=== PATIENT | female | born 1965 | race Caucasian/White ===

== ENCOUNTER 2021-10-08 14:33 | Outpatient (CLI) | payer BC, SELFPAY ==
--- NOTE | 2021-10-08 14:45 | CRLHL7_ITS ---
For Patients: As a result of the Century Cures Act, medical imaging exams and procedure reports are released immediately into your electronic medical record. You may view this report before your referring provider. If you have questions, please contact your health care provider. INDICATION: Other specified soft tissue disorders; Swelling; lymphedema COMPARISON: None. TECHNIQUE: Right upper extremity and neck venous ultrasound performed as well as ultrasound of left internal jugular vein including bermudez scale/2D, color Doppler, and spectral Doppler imaging including spectral waveform analysis. FINDINGS: The internal jugular, innominate, subclavian, axillary, basilic, cephalic, and brachial veins were patent and negative for thrombus. The left internal jugular vein was also patent and negative for thrombus where seen. Remainder negative. IMPRESSION: No evidence for DVT in the right upper extremity and neck venous system. Dictated by Blade Montelongo MD @ 10/08/2021 3:31:33 PM (Electronically Signed)
== END 2021-10-08 14:34 | disposition home or self-care (01) ==
LOC: US 14:34
PROVIDERS: Visit Provider Internal Medicine Medical Oncology
DX: M79.89 Other specified soft tissue disorders (principal); I89.0 Lymphedema, not elsewhere classified
CPT/HCPCS: 93971

== ENCOUNTER 2021-11-29 14:10 | Outpatient (CLI) | payer BC, SELFPAY ==
--- NOTE | 2021-11-29 15:00 | CRLHL7_ITS ---
For Patients: As a result of the Century Cures Act, medical imaging exams and procedure reports are released immediately into your electronic medical record. You may view this report before your referring provider. If you have questions, please contact your health care provider. Indication: Breast cancer Technique: Contrast CT chest abdomen pelvis Comparison: Chest and pelvis 08/01/2021, 05/10/2021 Findings: Normal caliber aorta or size normal. No pleural or pericardial effusion. Mastectomies. 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 Clips in the right axilla adenopathy is seen. In the right lung apex decreased ill-defined nodular densities when compared to 05/10/2021 changed since 08/01 1022. Subpleural reticular opacities in anterior right upper lobe likely related to radiation treatment. No new nodules are seen The appearance of the liver appears fatty. Tiny low-attenuation lesion too small to characterize in the right hepatic lobe on image 118 series 2 not significantly changed from the prior studies no biliary dilatation.. Adrenal glands gallbladder unremarkable. kidneys are unremarkable too small to characterize low-attenuation lesions in the kidneys no abdominal aortic aneurysm normal appendix IUD in the uterus urinary bladder is unremarkable the bowel appears unremarkable. No suspicious bony lesions are seen Impression: 1. ill-defined right apical centrilobular opacities are unchanged from 08/01/2021 but decreased from April 2021 likely infectious or inflammatory. No acute findings in the chest. 2. Stable CT abdomen and pelvis. Tiny too small to characterize low-attenuation lesion right hepatic lobe unchanged from prior exams. Please note that all CT scans at this facility use dose modulation, iterative reconstruction, and/or weight-based dosing when appropriate to reduce radiation dose to as low as reasonably achievable. Dictated by Luzma Mckeon MD @ 11/29/2021 7:14:47 PM (Electronically Signed)
== END 2021-11-29 14:11 | disposition home or self-care (01) ==
LOC: CT 14:11
PROVIDERS: PCP Family Medicine; Visit Provider Internal Medicine Medical Oncology
DX: C50.919 Malignant neoplasm of unspecified site of unspecified female breast (principal)
CPT/HCPCS: 71260; 74177; Q9967

== ENCOUNTER 2022-01-09 14:15 | Outpatient (RCR) | payer BC, SELFPAY ==
--- NOTE | 2021-10-30 18:08 | OT.OPLE ---
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 She woke up the next day and her arm was swollen and sore. Pt states she purchased a compression sleeve online and has been using it since, swelling might be a little better. Pain has improved. Pt was very tearful. Pt states she was reading online and saw terrible pictures, Just one more thing I have to deal with. Re- assured pt that the pictures she saw online were likely pictures of untreated, severe lymphedema and because she did the right thing by talking to her doctor and getting into therapy right away, her's would likely never get that severe as long as she continues to do good self care and follow clinic recommendations. Pt was seen in lymphedema clinic in June of 2020 and was supposed to follow for surveillance, however pt did not return, she was also working with PT on her shoulder ROM and strength and ended that early due to lots of medical appointments. Medical History Medical History Cancer Treatment/Surgery,HTN, Arthritis Medical History Comments Pt had BUE mastectomy with ALND x 17 in the RUE with 3+ for metastatic disease. Pt states that scans have shown spots in her liver, spine and chest, however, they have told her that the spots are too small to determine if it is cancer or not. Pt has undergone chemo and radiation as well. Pt will have consult with plastic surgery next week to have her right retail planner removed. The left one was removed moths ago after developing an infection. Pt has decided not to go through with reconstruction at this point. Pt is nervous about having surgery as she does not want it to make her lymphedema worse. Surgical History Surgical History BUE mastectomy with ALND on 02/13. Family History Family History of Lymphedema No Living Situation Current Living Situation Home With Spouse Or SO Patient Difficulties Patient Difficulties Comments Reaching higher cupboards. Exercise History Does Patient Exercise Regularly Yes Exercise Comments likes to walk. Pain Pain Yes Pain Comments Initially 3-4/10, better now for the most part Loss of Function/Strength/Mobility Loss Of Function/Strength/Mobility Yes Loss Of Function/Strength/Mobility Pt demonstrates limited AROM Comments of the RUE shoulder flexion to 150, abd is 125, IR is 65, ER is 65. Measurements were taken in supine. Rotations were taken with 80 deg of abd. MMT of the RUE shoulder is 3 -/5 throughout, RUE elbow, forearm, wrist and hand are 4/ 5. MMT of the LUE is 5/5 throughout. Pt is RHD. Compression History Does Patient Currently Wear Compression Yes During Daytime Compression During Daytime Comments Pt purchased a compression sleeve off of [employer], I think it was 25-30mmHg. Pt could not remember the brand name. Does Patient Currently Wear Compression No At Night Current Swelling (Location/Pitting/Texture) Pitting Scale: 0 = No pitting 1+ Tissue returns to normal almost immediately 2+ Tissue returns after 15-30 seconds 3+ Tissue returns after 1-1/2 minutes 4+ Tissue returns after 2-3 minutes N/A Tissue no longer pits due to induration Tissue texture: Soft or indurated Clinical Presentation Area RUE, maily in the forearm. Clinical Presentation Pitting Non-pitting. Clinical Presentation Texture Soft texture. Triggering Event & Start Date of Lifting and carrying heavy Swelling/Lymphedema items while cleaning out garrage 1 month ago. Type of Swelling Secondary Staging Staging Stage 1 Positive Stemmer's Sign No Circumferential Measurements Upper Extremity Left Upper Extremity MCP 20.0 Palm 19.8 Wrist 16.5 10cm 19.0 20cm 23.8 30cm 26.5 40cm 28.0 50cm 31.0 Total 184.6 Right Upper Extremity MCP 20.0 Palm 20.5 Wrist 16.5 10cm 19.7 20cm 25.0 30cm 27.2 40cm 28.0 50cm 31.0 Total 187.9 Assessment Assessment Pt reports having significant swelling in her RUE following a day of doing a lot of lifting and carrying while cleaning out the garrage, also reports pain in her right arm initially, this has improved. Swelling has also improved some since starting to wear compression sleeve. Today's measurements were compared to measurements taken on 06/28/2020 . Total measurement on the RUE is 2.8cm larger than 06/28/20, total measurement of the LUE is .6cm larger. Currently, the total measurement of the RUE is 3.3cm larger than the LUE. In June of 2020 the RUE total measurement was only . 6cm larger than the LUE. We are likely seeing the very early stages of lymphedema in the RUE. Pt also demonstrates significant limitations in AROM of the RUE shoulder. Pt will benefit from skilled OT intervention to addresss lymphedema in the RUE as well as limited ROM and strength in the RUE shoulder. Impairments Impairments Loss of Mobility,Limb Heaviness Impairments Comments . Problem List Problem List Limited Knowledge of Lymphedema Treatment/Condition /Precautions,Limited Knowledge of Skin Care & Infection Precautions,Significant Risk For Infection For Lymphedema Related Complications,Does Not Have a HEP,Does Not Have Appropriate Compression Garments For LT Management, Presents With Impaired Mobility/ROM Problem List Comments Uncertain if current compression sleeve is actually medical grade, also, pt does not have a glove or gauntlet. Patient Goals Click To Default Short Term Goals Standard Goals Short Term Goals Goal 1: Patient and or caregiver will understand lymphedema precautions to decrease risk of infection and further lymphedema related complications Goal 2: Patient will consistently perform HEP in order to improve lymphatic flow and venous return as well as to improve AROM of the RUE shoulder. Goal 3: Patient will perform self MLD protocol with minimal assistance to help reduce swelling and improve ROM and mobility Click To Default Detention Goals Standard Goals Detention Goals Goal 1: Patient will experience increased ROM of the RUE shoudler to be WNL in order to improve ability to holly clothing over head and reach into higher cupboards. Goal 2: Pt will obatain medical grade compression garment for hand and arm in order to maximize positive outcomes for LT management of lymphedema and reduce risk for infection. Goal 3: Patient will be consistent with wearing compression garments including the sleeve and a hand piece for best success at LT management of her lymphedema. Goal 4: Patient will achieve a reduction of 2cm from total measurements to enable functional improvements such as fitting into standard sized clothing and , return to a prior level of functional and reduced risk of infection.Goal 5: Patient and/or caregiver will be independent with HEP and lymphedema management to reduce risk for edema relapse and to reduce risk for infection Treatment Plan Treatment Plan Evaluation,Edema Control, Manual Therapy,Therapeutic Exercise,Therapeutic Activities,Self-Care/Home Management,Caregiver Training, Education Other Treatment Plan Recommended OT 2x week, pt only agreeabel to 1x week due to busy schedule Expected Duration 8-10 Weeks Certification Certification I Certify That: Therapy Services Provided, Therapy Plan Established, Therapy Plan Reviewed
--- NOTE | 2022-03-29 15:45 | ONC.NURNOTE ---
Pt called yesterday reviewing how she has been seeing Dr. Manzano for a persistent seroma following right breast implant removal 12/2021. Pt has surgical consult with Dr. Mcmullen Wed 04/03 to evaluate as seroma is persistent, despite draining x 2 and 10 days Keflex, per Dr. Manzano's note. Pt reported yesterday that she notes swollen lymph nodes on her upper right chest/neck. Kinesiology Internship reviewed with Dr. Mcmullen, General Surgeon and Carly Wright CNP. Per Carly's request, Dr. Mcmullen to palpate lymph nodes on exam and order chest CT, which was already likely the plan to further evaluate chest wound. BNN to review CT results with [facility] to determine f/u. If general surgery appt opens up sooner, pt to be moved up. Pt agreeable to this plan.
== END 2022-05-10 16:00 | disposition home or self-care (01) ==
PROVIDERS: PCP Internal Medicine Hematology & Oncology; Visit Provider Internal Medicine Hematology & Oncology
DX: I89.0 Lymphedema, not elsewhere classified (principal); Z51.89 Encounter for other specified aftercare
CPT/HCPCS: 97110; 97140; 97166; 97535; X5282

== ENCOUNTER 2022-04-17 08:59 | Outpatient (CLI) | payer BC, SELFPAY ==
--- NOTE | 2022-04-17 09:15 | CRLHL7_ITS ---
For Patients: As a result of the Cures Act, medical imaging exams and procedure reports are released immediately into your electronic medical record. You may view this report before your referring provider. If you have questions, please contact your health care provider. Indication: Technique: Grayscale ultrasound of the supraclavicular soft tissues performed on the right with left-sided images also obtained for comparison Comparison: None Findings: Normal soft tissues noted. No fluid collection or solid mass. No adenopathy. Impression: Negative targeted ultrasound of the supraclavicular spaces. Dictated by Blade Montelongo MD @ 04/17/2022 10:21:41 AM (Electronically Signed)
== END 2022-04-17 09:00 | disposition home or self-care (01) ==
PROVIDERS: PCP Family Medicine; Visit Provider Surgery
DX: R22.2 Localized swelling, mass and lump, trunk (principal)
CPT/HCPCS: 76536

== ENCOUNTER 2022-04-22 07:51 | Outpatient (CLI) | payer BC, SELFPAY ==
[2022-04-22 10:48] LABS: Basophils Absolute Auto 0.03 K/uL (0.00-0.30); Basophils Percent Auto 0.3 % (0.0-3.0); Eosinophils Absolute Auto 0.07 K/uL (0.00-0.50); Eosinophils Percent Auto 0.7 % (0.0-7.0); Hematocrit 41.3 % (33.0-51.0); Hemoglobin* 14.2 gm/dL (12.0-16.0); Immature Granulocytes Abs Auto 0.01 K/uL (0.00-0.30); Immature Granulocytes Pct Auto 0.1 %; Lymphocytes Percent Auto 8.9 % (20-44); Mean Corpuscular HGB Conc 34 gm/dL (32-36); Mean Corpuscular Hemoglobin 34 pg (26-34); Mean Corpuscular Volume 97 fL (80-100); Monocytes Percent Auto 5.2 % (0.0-11.0); Neutrophils Percent Auto 84.8 % (42.0-72.0); Platelet Count* 364 K/uL (140-440); RDW Coefficient of Variation % 12.4 % (11.5-15.5); Red Blood Count 4.24 m/uL (4.00-5.20); White Blood Count* 10.61 K/uL (4.50-11.00)
[2022-04-22 10:49] LABS: Slide Review Reflex No
[2022-04-22 11:19] LABS: Chloride* 98 mmol/L (96-114); Potassium* 3.4 mmol/L (3.6-5.1); Sodium* 139 mmol/L (135-149)
[2022-04-22 11:22] LABS: Creatinine* 0.6 mg/dL (0.5-1.5); Estimated Glomerular Filt Rate 106 ml/min
[2022-04-22 11:23] LABS: Blood Urea Nitrogen* 16 mg/dL (7-30); Calcium* 9.9 mg/dL (8.4-10.6); Carbon Dioxide* 32 mmol/L (20-32); Glucose* 110 mg/dL (60-115)
[2022-04-22 11:26] LABS: C Reactive Protein* < 0.5 mg/dL (0.5-1.0)
[2022-04-23 16:43] LABS: Prealbumin 36.6 mg/dL (20.0-40.0)
== END 2022-04-22 07:52 | disposition home or self-care (01) ==
LOC: WOUND 07:51
PROVIDERS: PCP Family Medicine; Visit Provider Nurse Practitioner Family
DX: L59.8 Other specified disorders of the skin and subcutaneous tissue related to radiation (principal); T81.31XA Disruption of external operation (surgical) wound, not elsewhere classified, initial encounter; Z85.3 Personal history of malignant neoplasm of breast; Z90.13 Acquired absence of bilateral breasts and nipples
CPT/HCPCS: 36415; 80048; 82728; 84134; 85025; 86140; 87070; 97597; 99213

== ENCOUNTER 2022-04-29 14:49 | Outpatient (CLI) | payer BC, SELFPAY | END 2022-04-29 14:50 | disposition home or self-care (01) | LOC: WOUND 14:49 | PROVIDERS: PCP Family Medicine; Visit Provider Nurse Practitioner Family | DX: L59.8 Other specified disorders of the skin and subcutaneous tissue related to radiation (principal); T81.31XA Disruption of external operation (surgical) wound, not elsewhere classified, initial encounter; Z85.3 Personal history of malignant neoplasm of breast; Z90.13 Acquired absence of bilateral breasts and nipples | CPT/HCPCS: 36415; 84630; 97597 ==

== ENCOUNTER 2022-05-07 10:08 | Outpatient (CLI) | payer BC, SELFPAY ==
--- NOTE | 2022-05-07 10:15 | CRLHL7_ITS ---
For Patients: As a result of the Cures Act, medical imaging exams and procedure reports are released immediately into your electronic medical record. You may view this report before your referring provider. If you have questions, please contact your health care provider. Indication: s/p mastectomy x2 years. s/p event designer removal with non-healing wound. Technique: Grayscale ultrasound of the right chest wall in the area of concern performed. Comparison: CT 08/01/2021, 11/29/2021 Findings: Targeted sonogram to the right chest wall performed. Dealer Support Technician is no longer present. Scar tissue noted. There is edematous change within the subcutaneous fat without drainable abscess. No solid mass. Impression: Postoperative changes of event designer removal and mastectomy. No drainable fluid collection. No evidence of tunneling. Dictated by Blade Montelongo MD @ 05/07/2022 11:11:04 AM (Electronically Signed)
== END 2022-05-07 10:09 | disposition home or self-care (01) ==
LOC: US 10:09
PROVIDERS: PCP Family Medicine; Visit Provider Nurse Practitioner Family
DX: S21.009A Unspecified open wound of unspecified breast, initial encounter (principal)
CPT/HCPCS: 76604

== ENCOUNTER 2022-05-17 15:00 | Outpatient (RCR) | payer BC, SELFPAY | END 2022-06-01 23:59 | disposition home or self-care (01) | LOC: CCIC 15:00 | PROVIDERS: PCP Family Medicine; Visit Provider Nurse Practitioner Family | DX: C50.911 Malignant neoplasm of unspecified site of right female breast (principal); Z17.0 Estrogen receptor positive status [ER+]; I10 Essential (primary) hypertension; Z90.13 Acquired absence of bilateral breasts and nipples | CPT/HCPCS: 99212; 99214; 99215 ==

== ENCOUNTER 2022-05-20 14:56 | Outpatient (CLI) | payer BC, SELFPAY | END 2022-05-20 14:57 | disposition home or self-care (01) | LOC: WOUND 14:56 | PROVIDERS: PCP Family Medicine; Visit Provider Nurse Practitioner Family | DX: L59.8 Other specified disorders of the skin and subcutaneous tissue related to radiation (principal); T81.31XA Disruption of external operation (surgical) wound, not elsewhere classified, initial encounter | CPT/HCPCS: 99212 ==

== ENCOUNTER 2022-05-27 14:55 | Outpatient (CLI) | payer BC, SELFPAY | END 2022-05-27 14:56 | disposition home or self-care (01) | LOC: WOUND 14:55 | PROVIDERS: PCP Family Medicine; Visit Provider Nurse Practitioner Family | DX: L59.8 Other specified disorders of the skin and subcutaneous tissue related to radiation (principal); T81.31XA Disruption of external operation (surgical) wound, not elsewhere classified, initial encounter | CPT/HCPCS: 99212 ==

== ENCOUNTER 2022-06-10 14:41 | Outpatient (CLI) | payer BC, SELFPAY | END 2022-06-10 14:42 | disposition home or self-care (01) | LOC: WOUND 14:41 | PROVIDERS: PCP Family Medicine; Visit Provider Nurse Practitioner Family | DX: L59.8 Other specified disorders of the skin and subcutaneous tissue related to radiation (principal); T81.31XA Disruption of external operation (surgical) wound, not elsewhere classified, initial encounter | CPT/HCPCS: 97597 ==

== ENCOUNTER 2022-06-25 09:27 | Outpatient (CLI) | payer BC, SELFPAY | END 2022-06-25 09:28 | disposition home or self-care (01) | LOC: WOUND 09:27 | PROVIDERS: PCP Family Medicine; Visit Provider Nurse Practitioner Family | DX: L59.8 Other specified disorders of the skin and subcutaneous tissue related to radiation (principal) | CPT/HCPCS: 15271; Q4128 ==

== ENCOUNTER 2022-07-29 15:21 | Outpatient (CLI) | payer BC, SELFPAY | END 2022-07-29 15:22 | disposition home or self-care (01) | LOC: WOUND 15:21 | PROVIDERS: PCP Family Medicine; Visit Provider Nurse Practitioner Family | DX: L59.8 Other specified disorders of the skin and subcutaneous tissue related to radiation (principal); T81.31XA Disruption of external operation (surgical) wound, not elsewhere classified, initial encounter | CPT/HCPCS: 97602 ==

== ENCOUNTER 2022-08-12 15:15 | Outpatient (CLI) | payer BC, SELFPAY | END 2022-08-12 15:16 | disposition home or self-care (01) | LOC: WOUND 15:15 | PROVIDERS: PCP Family Medicine; Visit Provider Family Medicine | DX: L59.8 Other specified disorders of the skin and subcutaneous tissue related to radiation (principal) | CPT/HCPCS: 97597 ==

== ENCOUNTER 2022-09-02 15:19 | Outpatient (CLI) | payer BC, SELFPAY | END 2022-09-02 15:20 | disposition home or self-care (01) | LOC: WOUND 15:19 | PROVIDERS: PCP Family Medicine; Visit Provider Nurse Practitioner Family | DX: T81.31XD Disruption of external operation (surgical) wound, not elsewhere classified, subsequent encounter (principal); L59.8 Other specified disorders of the skin and subcutaneous tissue related to radiation | CPT/HCPCS: 99212; 99213 ==

== ENCOUNTER 2023-05-05 10:05 | Outpatient (CLI) | payer BC, SELFPAY ==
--- NOTE | 2023-05-05 10:15 | US_ITS ---
Patient: FABIAN LION Facility:?[facility] Patient ID:?[id number] Site Patient ID:?[id number]. Site :?1965 Study:?US-Breast Dr. Montelongo to read-05/05/2023 11:14:20 AM Ordering Physician:JOHN Final Report: LEFT AXILLARY ULTRASOUND CLINICAL HISTORY: Right breast cancer status post bilateral mastectomy. New axillary lumps. COMPARISON: CT 11/29/2021, CT-PET 05/24/2021. TECHNIQUE: Real-time ultrasound imaging of left axilla with imaging documentation. Scanning was performed by both the technologist and the radiologist. FINDINGS: Targeted sonogram to the left axilla performed. There is a heterogeneous solid nodule located just beneath the skin measuring 12 x 7 x 10 millimeters. A second heterogeneous nodule is also present measuring 7 x 5 x 7 millimeters. Both of these correspond to palpable lumps. IMPRESSION: Indeterminate new subcutaneous nodular structures within the left axilla measuring 1.2 cm and 0.7 cm. RECOMMENDATIONS: Ultrasound-guided core needle biopsy will be performed subsequently. Results and recommendations were discussed with the patient at the time of the exam. BI-RADS Category 4: Suspicious A lay language report of this examination will be provided to the patient. Dictated by Blade Montelongo MD @ 05/05/2023 11:30:41 AM jacob/Dictated by: Blade Montelongo MD @ 05/05/2023 11:30:00 AM Signed by:?Blade Montelongo MD @05/05/2023 1:10:36 PM (Electronic Signature)
--- NOTE | 2023-05-05 11:15 | US_ITS ---
Patient: FABIAN LION Facility:?[facility] Patient ID:?[id number] Site Patient ID:?[id number]. Site :?1965 Study:?US-Breast Procedure Dr. Montelongo to read-05/05/2023 1:48:45 PM Ordering Physician:JOHN Final Report: ULTRASOUND-GUIDED LEFT AXILLARY BIOPSY X 2 AND MARKER PLACEMENT, 05/05/2023 CLINICAL HISTORY: RIGHT breast cancer status post BILATERAL mastectomy. New palpable lumps LEFT axilla. COMPARISON STUDIES: Ultrasound axilla same day. TECHNIQUE: Real-time ultrasound with image documentation was used for targeting the LEFT axillary lesions. A core needle biopsy system was used to obtain core tissue samples with an 18-gauge needle. Post biopsy mammogram images not performed as the patient is status post mastectomy. CONSENT and TIME OUT: The procedure, risks, and alternatives were explained to the patient and a consent was signed. [place] Protocol was followed including pre-procedure verification that relevant information/documentation was available, reviewed and properly matched to the patient; consent accurate and complete; and equipment and supplies available. Time Out was conducted just prior to starting procedure to verify the four required elements: patient identity, correct side/site marked (if applicable), procedure, relevant images/results properly labeled and displayed (if applicable). PROCEDURE: All biopsies were performed in a similar manner. The patient was positioned supine on the ultrasound table. The left axillary skin was prepped with ChloraPrep. 8 cc 1 percent lidocaine used for local anesthesia. Core samples were obtained. A sterile metal biopsy clip was placed percutaneously to raine the lesion position within the breast. The specimens were placed in 10% formalin and sent to the Pathology Department. Pressure was held on the biopsy site until all bleeding subsided. The skin incision was closed with Steri-Strips. An ice pack was positioned over the biopsy site. The patient tolerated the procedure well. Post-biopsy instructions were reviewed with the patient, and a written copy was given to her. SITE A: LATERALITY: LEFT axilla LESION: Heterogeneous hyperechoic/hypoechoic solid lesion just beneath the skin measuring 1.2 x 0.7 x 1.0 cm. SUSPICION: High. NUMBER OF SAMPLES: 5. BIOPSY CLIP SHAPE: Oval. PROXIMITY OF CLIP TO TARGET: Within the lesion. SITE B: LATERALITY: LEFT axilla. LESION: Hypoechoic and slightly hyperechoic lesion just beneath the skin measuring 7 x 5 x 7 mm. SUSPICION: High. However, due to its location, biopsy was difficult and results may be indeterminate. NUMBER OF SAMPLES: 3. BIOPSY CLIP SHAPE: Coil. PROXIMITY OF CLIP TO TARGET: Within the lesion. DISTANCE BETWEEN: Sites A and B: 3.5 cm. IMPRESSION: Ultrasound-guided breast biopsy of two or more sites. When the pathology report is available, an addendum to this report will be made. ACR not applicable Dictated by Blade Montelongo MD @ 05/06/2023 9:12:57 AM JADYN/vicente DW/Dictated by: Blade Montelongo MD @ 05/06/2023 9:12:00 AM Signed by:?Blade Montelongo MD @05/06/2023 9:52:45 AM
== END 2023-05-05 10:06 | disposition home or self-care (01) ==
LOC: US 10:07
PROVIDERS: PCP Family Medicine; Visit Provider Physician Assistant
DX: R59.0 Localized enlarged lymph nodes (principal); Z85.3 Personal history of malignant neoplasm of breast
CPT/HCPCS: 20206; 38505; 76882; 76942; 88305; 88342; 88361; 88377; A4648; A4649

== ENCOUNTER 2023-05-20 13:57 | Outpatient (CLI) | payer BC, SELFPAY ==
--- NOTE | 2023-05-20 14:30 | CT_ITS ---
Patient: FABIAN LION Facility:?[facility] Patient ID:?[id number] Site Patient ID:?[id number]. Site :?1965 Study:?CT-Head WO AND W ISOUVUE 370-05/20/2023 3:18:43 PM Ordering Physician:SHAN BAUMAN Final Report: Indication: Cancer. Assess for brain metastases. Technique: CT of the brain was performed without and with intravenous contrast. Contrast: 69 cc Isovue 370. Comparison: None relevant available at this institution. Findings: No acute blurring of the bermudez-white differentiation. There is no intracranial hemorrhage. The ventricles are proportionate to the cerebral sulci. The 4th ventricle is midline. Basal cisterns appear patent. No abnormal extra-axial fluid collection identified. There is no intracranial mass, mass effect or midline shift identified. No abnormal intracranial enhancement. No depressed calvarial fracture. Impression: 1. No evidence to suggest intracranial metastases within the confines of CT imaging. Please note MRI is much more sensitive for smaller metastases. 2. No acute intracranial process. Please note that all CT scans at this facility use dose modulation, iterative reconstruction, and/or weight-based dosing when appropriate to reduce radiation dose to as low as reasonably achievable. Dictated by Luther Bahena MD @ 05/20/2023 3:28:59 PM Signed by:?Luther Bahena MD @05/20/2023 3:28:59 PM (Electronic Signature)
--- NOTE | 2023-05-20 14:30 | CT_ITS ---
Patient: FABIAN LION Facility:?[facility] Patient ID:?[id number] Site Patient ID:?[id number]. Site :?1965 Study:?CT-Chest W ISOVUE 370-05/20/2023 3:17:11 PM Ordering Physician:SHAN BAUMAN Final Report: INDICATION: Assessment of tumor burden in brachial plexus area TECHNIQUE: CT chest with 69 mL Isovue 370 IV contrast. COMPARISON: 11/29/[address] FINDINGS: Lungs and pleura: 12 x 5 mm smoothly marginated nodule along the right major fissure image 37 series 4 is new. 6 mm left Brynn fissural nodule on image 49 has grown, previously measuring 3 mm. 5 mm nodule left lower lobe image 71 measuring 3 mm previously. 6 mm nodule along the left hemidiaphragm image 70 is new. Heart and vasculature: Heart size is normal. Thoracic aorta and pulmonary artery are normal in caliber. Lymph nodes/mediastinum: No mediastinal, hilar, or axillary adenopathy. Biopsy clip in a lymph node in the lateral left axilla. Postsurgical change in the right axilla. Chest wall: Bilateral mastectomies. Right breast tissue hand bander has been removed since the prior study. Evaluation of left brachial plexus limited by streak artifact from IV contrast injected in the left arm. Right brachial plexus is grossly unremarkable. Upper abdomen: 9 mm soft tissue mass posterior to the liver on image 109 series 3 is new. Bones: Subtle new sclerotic foci in the humeral heads, several ribs, and possibly the sternum (image 55 series 6). IMPRESSION: 1. No specific abnormalities in either brachial plexus. Brachial plexus MRI with gadolinium is more sensitive however. 2. Several new and enlarged pulmonary nodules described above. 3. Several new sclerotic skeletal lesions. 4. New 9 mm soft tissue mass posterior to the liver. 5. Above findings are suspicious for metastatic disease. Please note that all CT scans at this facility use dose modulation, iterative reconstruction, and/or weight-based dosing when appropriate to reduce radiation dose to as low as reasonably achievable. Dictated by Daniel Mack MD @ 05/21/2023 9:57:01 AM Signed by:?Daniel Mack MD @05/21/2023 9:57:01 AM (Electronic Signature)
== END 2023-05-20 13:58 | disposition home or self-care (01) ==
PROVIDERS: PCP Family Medicine; Visit Provider Internal Medicine Hematology & Oncology
DX: C50.911 Malignant neoplasm of unspecified site of right female breast (principal); R91.8 Other nonspecific abnormal finding of lung field; M89.9 Disorder of bone, unspecified; R16.0 Hepatomegaly, not elsewhere classified; R22.32 Localized swelling, mass and lump, left upper limb; C77.3 Secondary and unspecified malignant neoplasm of axilla and upper limb lymph nodes
CPT/HCPCS: 70470; 71260; Q9967

== ENCOUNTER 2023-06-06 11:30 | Outpatient (RCR) | payer BC, SELFPAY ==
--- NOTE | 2023-05-07 14:45 | ONC.NURNOTE ---
Call to patient to discuss plan of care. Patient informed of Dr. Chavez's recommendation to proceed with left axilla MRI and PET/CT to further evaluate the extent of her disease. We discussed that our next available PET/CT day in [place] is 05/21. Patient does not want to travel to [place] to have it done sooner but is willing to try [place]. Orders and records faxed to [facility]. Patient aware that we will schedule oncology follow up once we confirm dates for PET and MRI. [facility] will also follow up once we know the receptor and Her2 status. Patient verbalizes understanding.
[2023-05-21 09:37] LABS: Basophils Absolute Auto 0.05 K/uL (0.00-0.30); Basophils Percent Auto 0.5 % (0.0-3.0); Eosinophils Percent Auto 1.1 % (0.0-7.0); Hematocrit 41.3 % (33.0-51.0); Immature Granulocytes Abs Auto 0.02 K/uL (0.00-0.30); Immature Granulocytes Pct Auto 0.2 %; Lymphocytes Percent Auto 9.5 % (20-44); Mean Corpuscular HGB Conc 34 gm/dL (32-36); Mean Corpuscular Hemoglobin 33 pg (26-34); Mean Corpuscular Volume 97 fL (80-100); Neutrophils Percent Auto 83.7 % (42.0-72.0); Platelet Count* 486 K/uL (140-440); RDW Coefficient of Variation % 12.6 % (11.5-15.5); Red Blood Count 4.28 m/uL (4.00-5.20); White Blood Count* 9.37 K/uL (4.50-11.00)
[2023-05-21 09:41] LABS: Slide Review Reflex No
[2023-05-21 10:02] LABS: Albumin* 4.9 g/dL (3.3-5.0); Chloride* 97 mmol/L (96-114); Potassium* 3.5 mmol/L (3.6-5.1); Sodium* 136 mmol/L (135-149)
[2023-05-21 10:04] LABS: Bilirubin Total* 0.9 mg/dL (0.1-1.5); Creatinine* 0.8 mg/dL (0.5-1.5); Estimated Glomerular Filt Rate 86 ml/min
[2023-05-21 10:05] LABS: Alanine Aminotransferase* 23 U/L (4-35); Alkaline Phosphatase* 156 U/L (40-150); Anion Gap 10 mEq/L (7-15); Aspartate Amino Transferase* 42 U/L (12-35); Blood Urea Nitrogen* 16 mg/dL (7-30); Calcium* 10.1 mg/dL (8.4-10.6); Carbon Dioxide* 29 mmol/L (20-32); Glucose* 136 mg/dL (60-115); Total Protein* 8.6 g/dL (6.0-8.3)
--- NOTE | 2023-05-21 14:47 | URNOTE ---
Per [employer] [place], Prior authorization is not required for Fulvestrant ([id number]). 05/23/2023-05/22/2024. REf #[id number]
[2023-05-23] MEDS: FULVESTRANT 500MG KIT 500 MG IM (14:06)
[2023-06-06 11:31] VITALS: BP 116/73; PULSE 84; RESP 16; TEMP 36.9; O2SAT 98
[2023-06-06] MEDS: FULVESTRANT 500MG KIT 500 MG IM (11:42)
== END 2023-06-10 23:59 | disposition home or self-care (01) ==
LOC: CCIC 11:30
PROVIDERS: Internal Medicine Hematology & Oncology; PCP Family Medicine; Referring Provider Family Medicine; Visit Provider Physician Assistant
DX: C50.911 Malignant neoplasm of unspecified site of right female breast (principal); Z17.0 Estrogen receptor positive status [ER+]; Z79.818 Long term (current) use of other agents affecting estrogen receptors and estrogen levels; C77.3 Secondary and unspecified malignant neoplasm of axilla and upper limb lymph nodes
CPT/HCPCS: 36415; 80053; 85025; 93010; 96401; 99212; 99214; 99215; G0463; J9395

== ENCOUNTER 2023-06-19 15:12 | Outpatient (CLI) | payer BC, SELFPAY ==
--- NOTE | 2023-05-27 09:29 | W.ED.EKGINT ---
EKG Interpretation EKG Data Attestation: I personally reviewed and interpreted this ECG as follows: Date of EKG Tracin05/23/23 EKG interpretation date: 05/27/23 Prior EKG tracings: not available for review Interpretation: EKG is reviewed from above date, rhythm is sinus, ventricular rate 81, QT interval is 394, QTC baz is 457 milliseconds. Assessment: Normal sinus rhythm, normal EKG with no acute changes.
--- NOTE | 2023-05-29 16:36 | ONC.NURNOTE ---
I left a message for patient to discuss plan of care. 1. PA for Ribociclib was approved and per [facility], her co-pay is $25 per month. I encouraged patient to call to arrange shipment. Baseline labs and EKG completed. Patient not to start until she has been directed to. 2. Appointment to review EBUS biopsy results and [facility] One testing scheduled for 06/02 as a virtual visit.
--- OUTSIDE RECORDS SUMMARY | 2023-06-19 15:15 | XMS_ITS | Clinical Summary ---
Author Name Unknown Organization [facility] Address [place], [place] [address] Care Team Providers Care Warp Worker Name Role Phone Vicki Rawls MD Unavailable [phone] Esvin Manzano MD Primary Care Provider [phone] Allergies Active Allergy Reactions Criticality Noted Date Comments Iron Hives 04/24/2009 While Lisinopril Anaphylaxis,Angioedema High 06/27/2020 Medications Medication Sig Dispensed Refills Start Date End Date Status amLODIPine (NORVASC) 10 mg tablet Take 10 mg by mouth once daily. 03/27/2020 Active acetaminophen (TYLENOL) 325 mg tabletIndications :Malignant neoplasm of lower-inner quadrant of right breast of female, estrogen receptor positive (HC) Take 3 Tablets (975 mg) by mouth every 6 hours if needed. Max acetaminophen dose: 4000mg in 24 hrs. 07/06/2020 Active methocarbamoL (ROBAXIN) 750 mg tabletIndications :Malignant neoplasm of lower-inner quadrant of right breast of female, estrogen receptor positive (HC) Take 1 Tablet (750 mg) by mouth every 6 hours if needed. 50 Tablet 1 07/06/2020 Active Additional Information Patient not taking.Reported on 05/27/2023 anastrozole (ARIMIDEX) 1 mg tablet Take 1 mg by mouth once daily. 01/11/2021 Active chlorthalidone (HYGROTON) 25 mg tablet Take 12.5 mg by mouth once daily. 03/04/2023 Active ibuprofen (ADVIL; MOTRIN) 600 mg tablet Take 600 mg by mouth every 8 hours if needed. Maximum of 3200 mg in 24 hours. Active LORazepam (ATIVAN) 0.5 mg tab Take 0.5 mg by mouth once daily if needed. 10/19/2020 Active metoprolol succinate (TOPROL XL) 50 mg sustained-release tablet Take 50 mg by mouth once daily. 04/01/2023 Active metoprolol succinate (TOPROL XL) 25 mg Sustained-Release tablet Take 25 mg by mouth once daily. 05/19/2020 4 Discontinue d(*Medicati on adjustment) triamcinolone (ARISTOCORT; KENALOG) 0.1 % cream Apply topically to affected area(s) 2 times daily if needed. 05/19/2020 4 Discontinue d(*Patient states no longer taking) traMADoL (ULTRAM) 50 mg tablet Take 50 mg by mouth every 4 hours if needed. 11/16/2020 4 Discontinue d(*Patient states no longer taking) durable medical equipment (DME)Indications: Malignant neoplasm of overlapping sites of right breast in female, estrogen receptor positive (HC) Post-mastectomy bra, prosthesis, and swim form as allowed by insurance 4 Each 06/22/2021 4 Discontinue d(*Patient states no longer taking) Active Problems Problem Noted Date Diagnosed Date Malignant neoplasm of lower- inner quadrant of right breast of female, estrogen receptor positive 06/30/2020 Cancer Staging:Clinical stage from 05/23/2020:Stage IB(cT2, cN0, cM0, G2, ER+, NJ+, HER2-) - Signed by Vicki Rawls MD on 06/30/2020 Pathologic:Stage IIA(pT2, pN1a, cM0, G3, ER+, NJ+, HER2-) - Signed by Monika Grubbs PA on 07/18/2020 Hypertension 06/20/2011 Vitamin D deficiency 03/07/2011 Genital warts 10/13/2009 Anxiety state, unspecified 10/13/2009 Encounters Date Type Department Care Team Description 06/04/2023 1:00 PM CDT Telemedicine [facility] [address] [place] [address] Grazyna Bruno MS, [facility] (Genetic counseling/ ) 06/04/2023 Travel 06/02/2023 Telephone [facility] [address] [place] [address] Lupe Lubin Cancer Genetics 05/28/2023 8:26 AM CDT Anesthesia Event [facility] [address] [place] [address] Cathie Sung MD CrawfordSaima, PROCESS EXCELLENCE MANAGER 05/28/2023 7:50 AM CDT - 05/28/2023 9:05 AM CDT Surgery [facility] [address] [place] [address] Jarod Bonilla MD ENDOBRONCHIAL ULTRASOUND WITH FNA 05/28/2023 6:52 AM CDT - 05/28/2023 10:42 AM CDT Hospital Encounter [facility] [address] [place] [address] Jarod Bonilla MD Discharge Disposition: Home Self Care 05/27/2023 Travel 05/21/2023 Transcribe Orders [facility] [address] [place] [address] Betsey Carlin MD 05/15/2023 8:26 AM CDT - 05/15/2023 11:59 PM CDT Hospital Encounter [address] [address] Violet Benavides PA-C Localized swelling, mass, or lump of upper extremity, left; Malignant neoplasm of right female breast, unspecified estrogen receptor status, unspecified site of breast (HC); 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) 05/15/2023 Travel 05/05/2023 Lab Requisition [facility] [phone] Unknown, Doctor 05/05/2023 Lab Requisition [facility] [phone] Unknown, Doctor from Last 3 Months Immunizations Name Administration Dates Next Due Tdap 11/01/2008 Family History Medical History Relation Name Comments Hypertension Brother Hypertension Father Other Father parkinson's Cancer Maternal Aunt Heart Disease Maternal Grandfather [place] (ag e 60s) Hypertension Mother Cancer-breast Other Mat GGM Hypertension Sister Relation Name Status Comments Brother Father Maternal Aunt Maternal Grandfather Mother Alive Other Mat GGM Sister Social History Tobacco Use Types Packs/Day Years Used Date Smoking Tobacco: Every Day Cigarettes 0.3 37.3 Started: 1986 Smokeless Tobacco: Never Comments:Working on [employer]/ 5 cigs per day Alcohol Use Standard Drinks/Week Comments Yes 6 (1 standard drink = 0.6 oz pur e alcohol) Social Connections Answer Date Recorded Frequency of Communication with Friends and Fami ly Not on file 02/20/2021 Financial Resource Strain Answer Date R ecorded Difficulty of Paying Living Expenses Not on file 02/20/2021 Difficulty of Paying Living Expenses Not on file 02/20/2021 Sex and Gender Information Value Date Recorded Sex Assigned at Not on file Gender Identity Not on file Sexual Orientation Not on file Obstetrics History Para Term AB IAB SAB Ectopic Multiple Livin g Live Births 4 4 4 4 Date Outcome GA Total Labor Labor/2nd/3rd Weight Sex Delivery Anes PTL Kimmy A1 A5 Name Cl in 05/17 Para 3.52 kg (7 lb 12 oz) M Vag June ng SAMUE L Comments:INDUCED - PIT OCIN 07/07 Para 3.03 kg (6 lb 11 oz) M Vag Dece ased TOMMY Comments: OF SIDS - 6 MO 12/12 Para 2.98 kg (6 lb 9 oz) M CS-Unspec June ng DEBORAH Comments: LABOR 27 WKS 08/04 Para 2.81 kg (6 lb 3 oz) F June ng Last Filed Vital Signs Vital Sign Reading Time Taken Comments Blood Pressure 122/73 05/28/2023 10:30 AM CDT Pulse 72 05/28/2023 10:30 AM CDT Temperature 36.9 ??C (98.4 ??F) 05/28/2023 9:55 AM CD T Respiratory Rate 16 05/28/2023 10:3 0 AM CDT Oxygen Saturation 97% 05/28/2023 10: 30 AM CDT Inhaled Oxygen Concentration - - Weight 64.7 kg (142 lb 10.2 oz) 024 10:50 AM CDT Height 171.5 cm (5' 7.5) 06/22/2021 10 :39 AM CDT Body Mass Index 22.01 06/22/2021 10:39 AM CDT Plan of Treatment Health Maintenance Due Date Last Done Comments Depression screening for age 12+ 1978 HIV for age 15-65 1981 Hepatitis C screening for age 18-79 1984 Colonoscopy through age 75 08/18/2011 Lipids for age 45-75 03/04/2016 03/04/2011 Zoster (shingles) series for age 50+ (1 of 2) 2016 Tetanus booster 11/01/2018 11/01/2008 Pap test for age 21-65 01/20/2021 8, 01/20/2018, 03/04/2011 BMI (ht and wt on same day) for age 18+ 06/22/2022 06/22/2021, 01/31/2021, 07/18/2020, Additional history exists COVID-19 vaccine series ( season) 2022 11/10/2020, 06/03/2020, 05/13/2020 Influenza for age 50-64 10/26/2023 Tdap Completed 11/01/2008 Pneumococcal series for age 6-64 Aged Out No longer eligible based on patient's age to complete this topic Medical Devices Implanted Type Area Early Childhood Aide Classroom Device Identifier Shelf Expiration Date Model / Serial / Lot [id number] Alloderm Select Thick Perforated Implanted:Qty: 1 on 07/05/2020 by Eleazar Duran MD at [facility] Explanted:at [facility] (Quantity not on file) Right: Breast [employer] 10/24/2021 [id number] / [id number] / [id number] Alloderm Select Thick Perforated Implanted:Qty: 1 on 07/05/2020 by Eleazar Duran MD at [facility] Explanted:at [facility] (Quantity not on file) Left: Breast [employer] 10/24/2021 [id number] / [id number] / [id number] tissue Assistant Winemaker Breast [place] Cpx 4 Plus Smooth 350cc Implanted:Qty: 1 on 07/05/2020 by Eleazar Duran MD at [facility] Explanted:at [facility] (Quantity not on file) Left: Breast [employer] [place] SCRM 02/13/2024 [id number] / [id number] Description:TISSUE WARE CARRIER BREAST MENTOR CPX 4 PLUS SMOOTH 350CC [id number] Implanted:Qty: 1 on 07/05/2020 by Eleazar Duran MD at [facility] Explanted:at [facility] (Quantity not on file) Right: Breast [employer] [place] SCRM 02/13/2024 [id number] / [id number] Description:BREAST IMPLANT C PX4 PLUS SM TE MH 350CC Procedures Procedure Name Priority Date/Time Associated Diagnosis Comments FOCUS Timed 05/28/2023 9:34 AM CDT PATH NON HOSPITAL CLEANING SPECIALIST CYTOLOGY Today 05/28/2023 9:05 AM CDT ENDOTRACHEAL TUBE Routine 05/28/2023 8:4 3 AM CDT ENDOTRACHEAL TUBE Routine 05/28/2023 8:4 3 AM CDT ENDOTRACHEAL TUBE Routine 05/28/2023 8:4 3 AM CDT ENDOBRONCHIAL ULTRASOUND FINE NEEDLE ASPIRATION Class E Urgent 05/28/2023 8:16 AM CDT see note BRONCHOSCOPY 05/28/2023 7:[address] SKULL BASE TO MID THIGH SUBSEQUENT TREAT JOI 05/15/2023 9:55 AM CDT Localized swelling, mass, or lump of upper extremity, left Malignant neoplasm of right female breast, unspecified estrogen receptor status, unspecified site of breast (HC) 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) LAB TRACKING EVENT Routine 05/05/2023 11 :47 AM CDT LAB TRACKING EVENT Routine 05/05/2023 11 :45 AM CDT PATH BREAST CORE BIOPSY Routine 05/05/2023 11:45 AM CDT CG HER2 BREAST Routine 05/05/2023 11:45 AM CDT CYTOGENETICS MALIGNANT TISSUE Routine 05/05/2023 11:45 AM CDT HOSPITAL CLEANING SPECIALIST THIN PREP PAP SCREEN IMAGED Routine 01/20/2018 1:30 PM HOSPITAL CLEANING SPECIALIST LIPID PANEL Routine 03/04/2011 11:51 AM HOSPITAL CLEANING SPECIALIST Routine general medical examination at a health care facility from Last 3 Months or Most Recently Relevant to Health Maintenance Results * FOCUS (05/28/2023 9:34 AM CDT) Aspirate (Station 7 Subcarinal Lymph Node) 05/28/2023 9:34 AM CDT 06/06/2023 12:13 PM CDT Jarod Bonilla MD LABORATORY Performing Organization Address City/State/[facility] Co de Phone Number [facility] [address] [place] [phone], * PATH NON HOSPITAL CLEANING SPECIALIST CYTOLOGY (05/28/2023 9:05 AM CDT) Case Report Medical Cytology Report ? Case: [id number] ? Authorizing Provider: ??Jarod Bonilla MD ?Collected: ? 05/28/2023 0905 ? Ordering Location: ? [facility] ?Received: ?05/28/2023 0954 ? Hospital ? Pathologist: ? Mukesh Schaefer MD ? Specimens: ?? A) - Station 4R Lower Paratracheal Lymph Node, station 4r ? B) - Station 7 Subcarinal Lymph Node ? 06/13/2023 3:07 PM CDT [facility] Amendment 05/30/2023 - Amendment issued to incorporate ancillary studies. 06/13/2023 - Amendment to report [facility] Solid Tumor Targeted (52 gene) Next Generation Sequencing results. Please see diagnosis and attached scanned report. 06/13/2023 3:07 PM CDT [facility] Final Diagnosis A) LYMPH NODE, THORACIC STATION 4R, RIGHT LOWER PARATRACHEAL, FNA WITH CELL BLOCK: 1. Positive for malignancy, metastatic ductal carcinoma of breast 2. See microscopic description 3. Breast Ancillary Testing: ?a. Hormone Receptors: ?Estrogen receptor: Positive (81%, moderate staining) ?Progesterone receptor: Positive (64%, strong staining) ?b. HER2 by IHC: Negative (1+ by manual morphometry) ?c. NGS 52 gene solid tumor panel): ? - Positive for PIKC3A mutation, FGFR2 amplification, and CCND1 amplification ? - See attached NGS report B) LYMPH NODE, THORACIC STATION 7, SUBCARINAL, FNA WITH CELL BLOCK: 1. Positive for malignancy, metastatic ductal carcinoma of breast 06/13/2023 3:07 PM CDT [facility] Amendment electronically signed by Mukesh Schaefer MD on 06/13/2023 at 3:07 PM Amendment electronically signed by Muna Root MD on 05/30/2023 at 2:58 PM Clinical Information Patient with known invasive ductal carcinoma of bilateral breasts with confirmed metastatic disease in axillary lymph nodes. 06/13/2023 3:07 PM T [facility] Gross Description A) Received identified as Station 4R Lower Paratracheal Lymph Node, is a fine needle aspirate specimen. The specimen consists of: ? -5 Air dried slides ? -1 CytoLyt vial ? -0 RPMI vials ? -1 Formalin vial The following were prepared from the specimen submitted: ? -5 Diff-Quik stained slides ? -1 Papanicolaou stained ThinPrep slide ? -1 H&E stained cell block slide A2 Cell block material was removed from the patient and placed directly in formalin at 0934 on 05/28/23 and fixed in formalin at least 6 hours and no more than 72 hours. B) Received identified as Station 7 Subcarinal Lymph Node, is a fine needle aspirate specimen. The specimen consists of: ? -3 Air dried slides ? -1 CytoLyt vial ? -0 RPMI vials ? -1 Formalin vial The following were prepared from the specimen submitted: ? -3 Diff-Quik stained slides ? -1 Papanicolaou stained ThinPrep slide ? -1 H&E stained cell block slide B2 Cell block material was removed from the patient and placed directly in formalin at 0944 on 05/28/23 and fixed in formalin at least 6 hours and no more than 72 hours. 06/13/2023 3:07 PM T [facility] Adequacy Assessment A&B) Asad assessed adequacy from the air-dried smears at the time of the procedure with an impression of Adequate. 06/13/2023 3:07 PM [facility] Microscopic Description Specimen adequacy: Adequate for interpretation. All slides were reviewed. The microscopic appearance substantiates the diagnosis. IHC testing (block A2) is interpreted with the following results in the malignant cells: GATA3... ? Positive ER... ?Positive TTF1... ?Negative The pattern of immunoreactivity strongly supports the morphologic impression of metastatic breast carcinoma (positive GATA3 and ER) and helps to exclude metastatic disease from an occult lung primary (negative TTF1). 06/13/2023 3:07 PM T [facility] Molecular Diagnostics Summary Preanalytical microdissection of tissue/cytology slides for Next Generation Sequencing was performed according to laboratory protocol as follows: Microscopic examination was performed by a pathologist, Dr. Schaefer, to determine specimen adequacy and identify areas of tumor for isolation. Areas of tumor selected and marked by the pathologist were manually harvested by a laboratory monitor for nucleic acid extraction. 06/13/2023 3:07 PM T [facility] SYNOPTIC REPORTING Breast Biomarker Reporting Template BREAST: BIOMARKER REPORTING TEMPLATE - A Protocol posted: 05/15/2022 ?? Test(s) Performed: ? Estrogen Receptor (ER) Status: ?Positive (greater than 10% of cells demonstrate nuclear positivity) ? Percentage of Cells with Nuclear Positivity: ?81 % ? Average Intensity of Staining: ?Moderate ? Test Type: ?Laboratory-devel oped test ? Primary Antibody: ?SP1 ?? Test(s) Performed: ? Progesterone Receptor (PgR) Status: ?Positive ? Percentage of Cells with Nuclear Positivity: ?64 % ? Average Intensity of Staining: ?Strong ? Test Type: ?Laboratory-devel oped test ? Primary Antibody: ?636 ?? Test(s) Performed: ? HER2 by Immunohistochemist ry: ?Negative (Score 1+) ? Test Type: ?Laboratory-devel oped test ? Primary Antibody: ?4B5 ?? Cold Ischemia and Fixation Times: ?Meet requirements specified in latest version of the ASCO / CAP Guidelines ?? Testing Performed on Block Number(s): ?A2 METHODS ?? Fixative: ?Formalin ?? Image Analysis: ?Performed ? Method: ?Aperio morphometric analysis ? Biomarkers Scored by Image Analysis: ?ER ? Biomarkers Scored by Image Analysis: ?PgR 06/13/2023 3:07 PM CDT [facility]- ENTRAL LABORATORY Additional Information Patients with breast cancers that are HER2 IHC 3+ or IHC 2+/ARIELLA amplified may be eligible for several therapies that disrupt HER2 signaling pathways. Invasive breast cancers that test 'HER2-negative' (IHC 0, 1+ or 2+/ARIELLA not-amplified) are more specifically considered 'HER2-negative for protein overexpression/gen e amplification' since non-overexpressed levels of the HER2 protein may be present in these cases. Patients with breast cancers that are HER2 IHC 1+ or IHC 2+/ARIELLA not amplified may be eligible for a treatment that targets non-amplified/non- overexpressed levels of HER2 expression for cytotoxic drug delivery (IHC 0 results do not result in eligibility currently). Cytology is screened at [facility] Laboratory - [address] [address] and [facility] - [address] [place] [address] and [facility] - [address] [place] [address] Interpreted at [facility] Laboratory - [address] [address] 06/13/2023 3:07 PM CDT [facility] Aspirate (Station 4R Lower Paratracheal Lymph Node) 05/28/2023 9:05 AM CDT 05/28/2023 9:54 AM CDT Specimen obtained by aspiration (specimen) (Station 7 Subcarinal Lymph Node) 05/28/2023 9:34 AM CDT 05/28/2023 9:54 AM CDT Jarod Bonilla MD PATHOLOGY/CYTOLOGY [facility] [address] [place] [address], [place] * HCHG TUBE PR1, HCHG STYLET PR1, HCHG MOUTHPIECE PR1 (05/28/2023 8:43 AM CDT) Narrative Saima Amaro CRNA - 05/28/2023 8:43 AM CDT Saima Amaro CRNA ? 05/28/2023 ??8:43 AM Procedure: ETT Patient location during procedure: OR ETT Properties Mask Ventilation: easy Final Technique: direct laryngoscopy Type: straight Location: oral Cuffed: yes Tube Size: 8.5 mm Stylet: yes Laryngoscope Blade: Robertson Blade Size: 2 Cormack-Lehane Grade View: 1 Insertion Attempts: 1 Placement Verification: auscultation, end tidal CO2 and symmetrical chest wall movement Assessment: pharynx clear, atraumatic and dentition unchanged Secured at: 22 Measured From: lips Tooth guard used and removed: yes Tube secured with: ENDO BITE BLOCK. Difficulty: 0 (not difficult) Cathie Sung MD ANESTHESIA PX N OTE ORDERABLES * BRONCHOSCOPY (05/28/2023 7:26 AM CDT) 05/28/2023 7:26 AM CDT Narrative Transcriptions Jarod Bonilla MD - 05/28/2023 9:59 AM CDT [facility] Patient Name: Nieves Ham Procedure Date: 05/28/2023 Gender: Female Date of : 1965 Admit Type: Ambulatory Instrument Name: BRONCH [id number] [id number] Procedure: Bronchoscopy Proceduralist: Jarod Bonilla MD Referring MD: Jarod Bonilla MD Indications/Pre-Op Diagnosis: Bilateral hilar lymphadenopathy, Mediastinal adenopathy, Breast cancer Medications: General Anesthesia Procedure Description: Risks of bleeding, infection, pneumothorax, need for surgery, remote chance of and alternatives were discussed, and the patient gave informed consent. The endoscope [id number] was introduced through the mouth, via the endotracheal tube (the patient was intubated for the procedure)and advanced to the tracheobronchial tree. The endoscope [id number] was introduced through the mouth, via the endotracheal tube (thepatient was intubated for the procedure) and advanced to the tracheobronchial tree. The procedure was accomplished without difficulty. The patient tolerated the procedure well. Complications: No immediate complications Estimated Blood Loss & Specimen: Estimated blood loss was minimal. Findings: The endotracheal tube is in good position. The visualized portion ofthe trachea is of normal caliber. The xin is sharp. Thetracheobronchial tree was examined to at least the first subsegmental level. Bronchial mucosa and anatomy are normal; there are no endobronchial lesions,and no secretions. EBUS was performed. Stations 4L and 7 were sampled with STEPHEN consistent withmalignancy. Airway was cleared of secretions and blood with therapeuticsuctioning. Impression/Post-Op Diagonsis: - Bilateral hilar lymphadenopathy - Mediastinal adenopathy - Breast cancer - The airway examination was normal. - Staging EBUS was performed. - Therapeutic suctioning was performed. Recommendation: - Await biopsy results. Jarod Bonilla MD 05/28/2023 9:58:52 AM This report has been signed electronically. Note Initiated On: 05/28/2023 7:26 AM Jarod Bonilla MD PROCEDURE ORD * PET CT SKULL BASE TO MID THIGH SUBSEQUENT TREAT (05/15/2023 9:55 AM CDT) Anatomical Region Laterality Modality Positron Emissio n Tomography (PET) 05/15/2023 9:11 PM CDT Impressions 05/15/2023 9:11 PM CDT 1. Widespread sclerotic skeletal metastases are new compared to a prior PET-CT. 2. Increased size of a left adrenal nodule with moderately intense uptake is highly suspicious for metastatic disease. 3. Right lung perifissural nodule and left suprahilar nodule/lymph node with uptake are suspicious for metastatic disease. 4. Avid upper right cervical, left supraclavicular, multi station mediastinal and left axillary lymph nodes with uptake are suspicious metastatic disease. 5. Scattered small subcutaneous nodules, focal muscular implants and several peritoneal/retroperitoneal nodules with uptake are suspicious for metastatic disease. 6. Masslike thickening in the distal gastric antrum and asymmetric wall thickening in the descending duodenum is considered nonspecific though very worrisome for metastatic disease. Consider direct visualization. 7. Prior bilateral mastectomies with interval removal of a right chest tissue set staff fitter. Skin thickening with uptake and bandlike soft tissue/muscular activity across the right chest mastectomy site is nonspecific, possibly reactive/inflammatory in the setting of radiation. Infection not excluded. Correlate on exam. 8. Curvilinear uptake posterior inferior midline cerebellum with no definite noncontrast CT abnormality. Consider diagnostic head CT in follow-up. 9. Other nonacute findings as detailed in the body of the Dictated by Osman Krause MD @ 05/15/2023 9:11:20 PM (Electronically Signed) Narrative 05/15/2023 9:11 PM CDT For Patients: ??As a result of the Century Cures Act, medical imaging exams and procedure reports are released immediately into your electronic medical record. ??You may view this report before your referring provider. ??If you have questions, please contact your health care provider. EXAM: PET-CT SKULL BASE TO THIGH CLINICAL INFORMATION: 57-yo Female with history of metastatic breast cancer (2020). Prior bilateral mastectomy with right axillary lymph node dissection, radiation treatment and chemotherapy. Patient is referred for further characterization. TECHNIQUE: Radiopharmaceutical: 13.93 mCi of 18F-FDG Intravenous injection site: LAC Uptake time: 56 minutes Blood glucose level at the time of injection: 83 mg/dL Field of view: Skull base to mid-thighs CT protocol: The low-dose, free-breathing, noncontrast CT performed as part of this study is designed for the purposes of attenuation correction and lesion localization, and it is neither sufficient, nor it should be substituted for diagnostic purposes. COMPARISON: CT chest abdomen pelvis 11/29/2021 and 08/01/2021. PET-CT 05/24/2021 FINDINGS: Physiologic background liver standardized uptake value (SUV mean and SUV max) reported for comparison between PET studies: 2.4 and 2.7 . Visualized head and neck: Curvilinear uptake posterior inferior midline cerebellum with no definite noncontrast CT abnormality (series 301, image 17). No mass effect. Consider dedicated CT head in follow-up. Head and neck lymph nodes: Avid right level 2 lymph node and a small left supraclavicular lymph node are suspicious. For example: Right level 2 lymph node, SUV max 9.5. Left supraclavicular lymph node, SUV max 4.0. Lungs: New bilateral nodules with uptake are suspicious. Noncalcified right midlung perifissural nodule, 1.1 cm, SUV max 6.9 (fused image 104). Left suprahilar nodule/lymph node, 1.2 cm, SUV max 8.7 (fused image 99). Small nodular densities in the lateral and posterior lung base (images 140 and 137) with no abnormal uptake are nonspecific. Postradiation changes anterior aspect right upper lobe. No consolidation. Thoracic lymph nodes: Avid nonenlarged mediastinal, hilar and left axillary lymph nodes are suspicious. For example: Lower right paratracheal lymph node, SUV max 8.1. Subcarinal lymph node, SUV max 7.2. Right anterior perihilar lymph node, SUV max 8.3. Posterolateral left axillary lymph node with biopsy clip, SUV max 5.2. Misregistered activity. Other chest findings: ??Scattered coronary vascular calcifications. Prior bilateral mastectomies with interval removal of a right chest tissue set staff fitter. Skin thickening and bandlike soft tissue/muscular uptake across the right chest is nonspecific, ??SUV max 2.5 (fused image 124). Potentially,reactive/inflammatory in the setting of prior radiation or infectious process. Attention on exam. Hepatobiliary: No measurable tracer avid liver lesion. Avid nodule or capsular implant adjacent to the anterior inferior left hepatic lobe margin, 0.6 cm, SUV max 3.9 (fused image 164). Spleen: No abnormal uptake. No splenomegaly. Pancreas: No abnormal uptake. Adrenal glands: No abnormal right adrenal uptake. Left adrenal nodule with uptake is suspicious for adrenal metastasis, 1.4 cm, SUV max 9.0. Kidneys and bladder: No obstruction. Limited bladder distention with generalized wall thickening. Bowel and peritoneum: Masslike thickening in the distal gastric antrum with uptake is suspicious for metastatic disease, 4.0 cm, SUV max 6.1 (fused image 163). No gastric outlet obstruction. Short-segment wall thickening proximal descending duodenum with uptake, SUV max 3.9 (fused image 169). No other suspicious small bowel or colon uptake. Unremarkable appendix. Colonic diverticulosis without inflammatory change. -peritoneal and retroperitoneal nodules with uptake are suspicious for metastatic disease. For example: Right upper quadrant peritoneal nodule borders the gastric antrum, 0.9 cm, SUV max 5.7 (fused image 174). Peritoneal nodule posterior to the right lobe of the liver, 0.8 cm, SUV max 3.8 (fused image 161). Right posterior pararenal nodule bordering the right kidney, 0.9 cm, SUV max 5.0 (fused image 189). Pelvic organs: No abnormal uptake. IUD in place. Abdominopelvic lymph nodes: Mild uptake within nonenlarged abdominal ,retroperitoneal, pelvic and inguinal lymph nodes is nonspecific, possibly reactive/inflammatory. Musculoskeletal, soft tissues, skin: New widely scattered tracer avid skeletal lesions involve the spine, thorax/ribs, pelvis, sacrum and extremities consistent with diffuse osseous metastatic disease. For example: Left humeral head lesion, SUV max 6.3. ??Distal right humeral shaft lesion, SUV max 5.1. Sclerotic left anterior 5th rib lesion, SUV max 3.3. Left T9 transverse process lesion, SUV max 4.7. Sclerotic L5 vertebral body and right pedicle lesion, SUV max 7.1. Upper sacral body and bilateral ala sclerotic lesion, SUV max 7.3. Left iliac sclerotic lesion, SUV max 7.5. Right hip/femoral neck sclerotic lesion, SUV max 6.7. Proximal right femoral shaft medullary lesion, SUV max 10.8. -scattered small subcutaneous nodules and several foci of muscular uptake are considered indeterminate though suspicious for metastases. For example: Subcutaneous nodule left lower lateral abdomen, 0.7 cm SUV max 3.4. Focal uptake left posterior gluteus caleb muscle, not measurable, SUV max 5.6 (fused image 265). Right posterolateral flank subcutaneous nodule, 0.5 cm, SUV max 1.9 (fused image 199). Other: Scattered aortoiliac atherosclerotic vascular calcifications. Procedure Note Osman Krause, DO - 05/15/2023 For Patients: As a result of the Century Cures Act, medical imagingexams and procedure reports are released immediately into your electronicmedical record. You may view this report before your referring provider.If you have questions, please contact your health care provider. EXAM: PET-CT SKULL BASE TO THIGH CLINICAL INFORMATION: 57-yo Female with history of metastatic breast cancer (2020). Priorbilateral mastectomy with right axillary lymph node dissection, radiationtreatment and chemotherapy. Patient is referred for furthercharacterization. TECHNIQUE: Radiopharmaceutical: 13.93 mCi of 18F-FDG Intravenous injection site: LAC Uptake time: 56 minutes Blood glucose level at the time of injection: 83 mg/dL Field of view: Skull base to mid-thighs CT protocol: The low-dose, free-breathing, noncontrast CT performed aspart of this study is designed for the purposes of attenuation correctionand lesion localization, and it is neither sufficient, nor it should besubstituted for diagnostic purposes. COMPARISON: CT chest abdomen pelvis 11/29/2021 and 08/01/2021. PET-CT 05/24/2021 FINDINGS: Physiologic background liver standardized uptake value (SUV mean and SUVmax) reported for comparison between PET studies: 2.4 and 2.7 . Visualized head and neck: Curvilinear uptake posterior inferior midlinecerebellum with no definite noncontrast CT abnormality (series 301, image17). No mass effect. Consider dedicated CT head in follow-up. Head and neck lymph nodes: Avid right level 2 lymph node and a small leftsupraclavicular lymph node are suspicious. For example: Right level 2lymph node, SUV max 9.5. Left supraclavicular lymph node, SUV max 4.0. Lungs: New bilateral nodules with uptake are suspicious. Noncalcifiedright midlung perifissural nodule, 1.1 cm, SUV max 6.9 (fused image 104).Left suprahilar nodule/lymph node, 1.2 cm, SUV max 8.7 (fused image 99).Small nodular densities in the lateral and posterior lung base (images 140and 137) with no abnormal uptake are nonspecific. Postradiation changesanterior aspect right upper lobe. No consolidation. Thoracic lymph nodes: Avid nonenlarged mediastinal, hilar and leftaxillary lymph nodes are suspicious. For example: Lower right paratracheallymph node, SUV max 8.1. Subcarinal lymph node, SUV max 7.2. Rightanterior perihilar lymph node, SUV max 8.3. Posterolateral left axillarylymph node with biopsy clip, SUV max 5.2. Misregistered activity. Other chest findings: Scattered coronary vascular calcifications. Priorbilateral mastectomies with interval removal of a right chest tissueexpander. Skin thickening and bandlike soft tissue/muscular uptake acrossthe right chest is nonspecific, SUV max 2.5 (fused image 124).Potentially,reactive/inflammatory in the setting of prior radiation orinfectious process. Attention on exam. Hepatobiliary: No measurable tracer avid liver lesion. Avid nodule orcapsular implant adjacent to the anterior inferior left hepatic lobemargin, 0.6 cm, SUV max 3.9 (fused image 164). Spleen: No abnormal uptake. No splenomegaly. Pancreas: No abnormal uptake. Adrenal glands: No abnormal right adrenal uptake. Left adrenal nodule withuptake is suspicious for adrenal metastasis, 1.4 cm, SUV max 9.0. Kidneys and bladder: No obstruction. Limited bladder distention withgeneralized wall thickening. Bowel and peritoneum: Masslike thickening in the distal gastric antrumwith uptake is suspicious for metastatic disease, 4.0 cm, SUV max 6.1(fused image 163). No gastric outlet obstruction. Short-segment wallthickening proximal descending duodenum with uptake, SUV max 3.9 (fusedimage 169). No other suspicious small bowel or colon uptake. Unremarkableappendix. Colonic diverticulosis without inflammatory change. -peritoneal and retroperitoneal nodules with uptake are suspicious formetastatic disease. For example: Right upper quadrant peritoneal noduleborders the gastric antrum, 0.9 cm, SUV max 5.7 (fused image 174).Peritoneal nodule posterior to the right lobe of the liver, 0.8 cm, SUVmax 3.8 (fused image 161). Right posterior pararenal nodule bordering theright kidney, 0.9 cm, SUV max 5.0 (fused image 189). Pelvic organs: No abnormal uptake. IUD in place. Abdominopelvic lymph nodes: Mild uptake within nonenlarged abdominal,retroperitoneal, pelvic and inguinal lymph nodes is nonspecific, possiblyreactive/inflammatory. Musculoskeletal, soft tissues, skin: New widely scattered tracer avidskeletal lesions involve the spine, thorax/ribs, pelvis, sacrum andextremities consistent with diffuse osseous metastatic disease. Forexample: Left humeral head lesion, SUV max 6.3. Distal right humeralshaft lesion, SUV max 5.1. Sclerotic left anterior 5th rib lesion, SUV max3.3. Left T9 transverse process lesion, SUV max 4.7. Sclerotic A0qobztyyvs body and right pedicle lesion, SUV max 7.1. Upper sacral bodyand bilateral ala sclerotic lesion, SUV max 7.3. Left iliac scleroticlesion, SUV max 7.5. Right hip/femoral neck sclerotic lesion, SUV max 6.7.Proximal right femoral shaft medullary lesion, SUV max 10.8. -scattered small subcutaneous nodules and several foci of muscular uptakeare considered indeterminate though suspicious for metastases. Forexample: Subcutaneous nodule left lower lateral abdomen, 0.7 cm SUV max3.4. Focal uptake left posterior gluteus caleb muscle, not measurable,SUV max 5.6 (fused image 265). Right posterolateral flank subcutaneousnodule, 0.5 cm, SUV max 1.9 (fused image 199). Other: Scattered aortoiliac atherosclerotic vascular calcifications. IMPRESSION: 1. Widespread sclerotic skeletal metastases are new compared to a priorPET-CT. 2. Increased size of a left adrenal nodule with moderately intense uptakeis highly suspicious for metastatic disease. 3. Right lung perifissural nodule and left suprahilar nodule/lymph nodewith uptake are suspicious for metastatic disease. 4. Avid upper right cervical, left supraclavicular, multi stationmediastinal and left axillary lymph nodes with uptake are suspiciousmetastatic disease. 5. Scattered small subcutaneous nodules, focal muscular implants andseveral peritoneal/retroperitoneal nodules with uptake are suspicious formetastatic disease. 6. Masslike thickening in the distal gastric antrum and asymmetric wallthickening in the descending duodenum is considered nonspecific thoughvery worrisome for metastatic disease. Consider direct visualization. 7. Prior bilateral mastectomies with interval removal of a right chesttissue set staff fitter. Skin thickening with uptake and bandlike softtissue/muscular activity across the right chest mastectomy site isnonspecific, possibly reactive/inflammatory in the setting of radiation.Infection not excluded. Correlate on exam. 8. Curvilinear uptake posterior inferior midline cerebellum with nodefinite noncontrast CT abnormality. Consider diagnostic head CT infollow-up. 9. Other nonacute findings as detailed in the body of the Dictated by Osman Krause MD @ 05/15/2023 9:11:20 PM (Electronically Signed) Violet Benavides PA-C PET * LAB TRACKING EVENT (05/05/2023 11:47 AM CDT) Only the most recent of2 resultswithin the time period is included. Other (Other) Client Collect / Unknown 05/05/2023 11:47 AM CDT 05/05/2023 9:49 PM CDT Doctor Unknown LAB BILL ONLY [facility] [address] [place] [address], * PATH BREAST CORE BIOPSY (05/05/2023 11:45 AM CDT) Case Report Pathology Report ?Case: [id number] ? Authorizing Provider: ??Unknown, Doctor ?Collected: ? 05/05/2023 1145 ? Ordering Location: ? [facility] ?Received: ?05/06/2023 0650 ? Pathologist: ? Kevin Bush MD ? Specimens: ?? A) - Left Breast ? B) - Left Breast Core Ultrasound Biopsy ? 05/12/2023 3:38 PM CDT [facility] Amendment 05/08/2023 - Amendment issued to incorporate ancillary studies. 05/09/2023 - Amendment issued to incorporate ancillary studies on part B. 05/12/2023 - Amendment issued to incorporate ancillary HER2 FISH studies. 05/12/2023 3:38 PM CDT [facility] Final Diagnosis A) AXILLA, LEFT, MASS A, ULTRASOUND CORE BIOPSY: 1. 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 a. [place] grade: II of III; Shanice score: 7 of 9 ?? b. Associated DCIS: Absent 2. No definite lymph node tissue present 3. No breast glandular parenchyma is present 4. Breast Ancillary Testing: ?a. Hormone Receptors: ?Estrogen receptor: Positive (98%, strong staining) ?Progesterone receptor: Positive (97%, strong staining) ?b. HER2 by IHC: Equivocal (2+ by manual morphometry) ? HER2 by FISH: Negative ?HER2/CEP17 ratio: 1.02 ?HER2 signals/cell: 2.36 ?CEP17 signals/cell: 2.32 B) AXILLA, LEFT, MASS B, ULTRASOUND CORE BIOPSY: 1. 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 a. [place] grade: II of III; Shanice score: 6 of 9 ?? b. Associated DCIS: Absent 2. No definite lymph node tissue present 3. No breast glandular parenchyma is present 4. Breast Ancillary Testing: ?a. Hormone Receptors: ?Estrogen receptor: Positive (99%, strong staining) ?Progesterone receptor: Positive (37%, moderate staining) ?b. HER2 by IHC: Negative (1+ by manual morphometry) ?c. Ki-67: Deferred (can be performed upon clinical request) 05/12/2023 3:38 PM CDT [facility] Amendment electronically signed by Etta Cardoza MD on 05/12/2023 at 3:38 PM Amendment electronically signed by Muna Root MD on 05/09/2023 at 10:42 AM Amendment electronically signed by Kevin Bush MD on 05/08/2023 at 11:06 AM Comment The A and B slides both confirm invasive ductal carcinoma. The patient is status post prophylactic left mastectomy, having undergone bilateral mastectomy for invasive and node positive right breast carcinoma in 2020 (see [phone]). ??The current invasive carcinoma is morphologically similar to the patient's known breast carcinoma (prior slides reviewed for histologic correlation). No background non-neoplastic breast tissue is seen, and no lymph node tissue is present in either A or B. This is an image-guided breast biopsy. The pathologic findings should be correlated with radiologic and clinical findings prior to treatment decisions. Case seen in consultation with Dr. Cielo olmstead. 05/12/2023 3:38 PM CDT [facility] Clinical Information Patient with history of invasive ductal carcinoma of right breast ([id number]) with multiple positive right axillary lymph nodes. Treated with bilateral mastectomy. A) LEFT AXILLARY MASS, 12 mm B) LEFT AXILLARY MASS, 7 mm 3.5 cm apart 05/12/2023 3:38 PM CDT [facility] Gross Description A) Label: Patient's name and Left axilla A Description: Fibrofatty core biopsies Size: 0.9 x 0.7 x 0.1 cm (aggregate) Ink color: Green The specimen is submitted in toto in 1 cassette(s). Cold ischemic time: Less than 60 minutes, meets current ASCO/CAP guidelines. ?? The specimen was fixed in formalin for a minimum of 6 hours and not longer than 72 hours. B) Label: Patient's name and Left axilla B Description: Fibrofatty core biopsies Size: 0.5 x 0.3 x 0.1 cm (aggregate) Ink color: Black The specimen is submitted in toto in 1 cassette(s). Cold ischemic time: Less than 60 minutes, meets current ASCO/CAP guidelines. ?? The specimen was fixed in formalin for a minimum of 6 hours and not longer than 72 hours. SREEDHAR 05/06/2023 ?? 05/12/2023 3:38 PM CDT [facility] Microscopic Description The final diagnosis is based on microscopic examination of appropriate sections of all specimens. A) Cores with green ink. B) Cores with black ink. 05/12/2023 3:38 PM CDT [facility] Cytogenetics Summary Cytogenetic testing has been ordered and will be reported separately. 05/12/2023 3:38 PM CDT [facility] SYNOPTIC REPORTING Breast Biomarker Reporting Template BREAST: BIOMARKER REPORTING TEMPLATE - A Protocol posted: 05/15/2022 ?? Test(s) Performed: ? Estrogen Receptor (ER) Status: ?Positive (greater than 10% of cells demonstrate nuclear positivity) ? Percentage of Cells with Nuclear Positivity: ?98 % ? Average Intensity of Staining: ?Strong ? Test Type: ?Laboratory-deve loped test ? Primary Antibody: ?SP1 ?? Test(s) Performed: ? Progesterone Receptor (PgR) Status: ?Positive ? Percentage of Cells with Nuclear Positivity: ?97 % ? Average Intensity of Staining: ?Strong ? Test Type: ?Laboratory-deve loped test ? Primary Antibody: ?636 ?? Test(s) Performed: ? HER2 by Immunohistochemis try: ?Equivocal (Score 2+) ? Percentage of Cells with Uniform Intense Complete Membrane Staining: ?0 % ? Test Type: ?Laboratory-deve loped test ? Primary Antibody: ?4B5 ?? Test(s) Performed: ? HER2 by in situ Hybridization: ?Negative (not amplified) ? Number of Observers: ?2 ? Number of Invasive Tumor Cells Counted: ?25 cells ? Method: ?Dual probe assay ? Average Number of HER2 Signals per Cell: ?2.36 ? Average Number of CEP17 Signals per Cell: ?2.32 ? HER2 / CEP17 Ratio: ?1.02 ? Aneusomy: ?Not identified ? Heterogeneous Signals: ?Not identified ? Test Type: ?Food and Drug Administration (FDA) cleared (test / vendor): Vysis PathVysion ?? Cold Ischemia and Fixation Times: ?Meet requirements specified in latest version of the ASCO / CAP Guidelines ?? Testing Performed on Block Number(s): ?A1 METHODS ?? Fixative: ?Formalin ?? Image Analysis: ?Performed ? Method: ?Aperio morphometric analysis ? Biomarkers Scored by Image Analysis: ?ER ? Biomarkers Scored by Image Analysis: ?PgR ?? Comment(s): ?The FDA approved Vysis PathVysion DNA Probe Kit was developed and its performance characteristics determined by [employer]. ??This test incorporates minor modifications to protocol and validated by the [facility] and [facility] to yield equivocal or superior performance. This FISH test uses a multiplex probe stain procedure. Breast Biomarker Reporting Template BREAST: BIOMARKER REPORTING TEMPLATE - B Protocol posted: 05/15/2022 ?? Test(s) Performed: ? Estrogen Receptor (ER) Status: ?Positive (greater than 10% of cells demonstrate nuclear positivity) ? Percentage of Cells with Nuclear Positivity: ?99 % ? Average Intensity of Staining: ?Strong ? Test Type: ?Laboratory-deve loped test ? Primary Antibody: ?SP1 ?? Test(s) Performed: ? Progesterone Receptor (PgR) Status: ?Positive ? Percentage of Cells with Nuclear Positivity: ?37 % ? Average Intensity of Staining: ?Moderate ? Test Type: ?Laboratory-deve loped test ? Primary Antibody: ?636 ?? Test(s) Performed: ? HER2 by Immunohistochemis try: ?Negative (Score 1+) ? Test Type: ?Laboratory-deve loped test ? Primary Antibody: ?4B5 ?? Cold Ischemia and Fixation Times: ?Meet requirements specified in latest version of the ASCO / CAP Guidelines ?? Testing Performed on Block Number(s): ?B1 METHODS ?? Fixative: ?Formalin ?? Image Analysis: ?Performed ? Method: ?Aperio morphometric analysis ? Biomarkers Scored by Image Analysis: ?ER ? Biomarkers Scored by Image Analysis: ?PgR 05/12/2023 3:38 PM CDT [facility] Additional Information Patients with breast cancers that are HER2 IHC 3+ or IHC 2+/ARIELLA amplified may be eligible for several therapies that disrupt HER2 signaling pathways. Invasive breast cancers that test 'HER2-negative' (IHC 0, 1+ or 2+/ARIELLA not-amplified) are more specifically considered 'HER2-negative for protein overexpression/ge ne amplification' since non-overexpressed levels of the HER2 protein may be present in these cases. Patients with breast cancers that are HER2 IHC 1+ or IHC 2+/ARIELLA not amplified may be eligible for a treatment that targets non-amplified/non -overexpressed levels of HER2 expression for cytotoxic drug delivery (IHC 0 results do not result in eligibility currently). Interpreted at [facility] - [address] [place] [address] 05/12/2023 3:38 PM CDT [facility] Other (Left Breast) 05/05/2023 11:45 AM CDT 05/06/2023 6:50 AM CDT Specimen (specimen) (Left Breast Core Ultrasound Biopsy) 05/05/2023 11:47 AM CDT 05/06/2023 7:41 AM CDT Doctor Unknown PATHOLOGY/CYTOLOGY Performing Organization Address [facility] Co de Phone Number [facility] [address] [place] [address], * CG HER2 BREAST (05/05/2023 11:45 AM CDT) Other (Left Breast) 05/05/2023 11:45 AM CDT 05/08/2023 11:04 AM CDT Doctor Unknown LABORATORY Performing Organization Address [facility] Co de Phone Number [facility] [address] [place] [address], * CYTOGENETICS MALIGNANT TISSUE STUDIES (05/05/2023 11:45 AM CDT) RFR Breast cancer 05/12/2023 2:23 PM CDT [facility]- NTRAL LABORATORY TEST & RESULT SUMMARY HER2 FISH Breast: See pathology report [id number]. See comments. 05/12/2023 2:23 PM CDT [facility] _ 05/12/2023 2:23 PM CDT [facility] COMMENTS This record is used as an internal laboratory test designed for workflow purposes only. 05/12/2023 2:23 PM CDT [facility] SOURCE Left Breast (Paraffin Slides A1 2 uns) [id number] 05/12/2023 2:23 PM CDT [facility] Other (Left Breast) 05/05/2023 11:45 AM CDT 05/08/2023 11:04 AM CDT Doctor Unknown LABORATORY Performing Organization Address City/State/[facility] Co de Phone Number [facility] [address] [place] [address], * HOSPITAL CLEANING SPECIALIST THIN PREP PAP SCREEN IMAGED (01/20/2018 1:30 PM HOSPITAL CLEANING SPECIALIST) Case Report Gynecologic Cytology Report ? Case: [id number] ? Authorizing Provider: ??Pat Cabrera MD ? Collected: ? 01/20/2018 1330 ? First Screen: ?Mariella Lynch ?Received: ?01/22/2018 1810 ? Specimen: ?HOSPITAL CLEANING SPECIALIST ThinPrep Vial Screening, Cervical/Vaginal ? 01/30/2018 3:20 PM HOSPITAL CLEANING SPECIALIST [facility] INTERPRETATION/ RESULT NEGATIVE FOR INTRAEPITHELIAL LESION OR MALIGNANCY (NIL) (none) 01/30/2018 3:20 PM [facility] IMEN ADEQUACY Satisfactory for evaluation No endocervical component seen 01/30/2018 3:20 PM HOSPITAL CLEANING SPECIALIST [facility] HPV REQUEST HPV and PAP 01/30/2018 3:20 PM HOSPITAL CLEANING SPECIALIST [facility] Automated Review Successful 01/30/2018 3:20 PM [facility] Comment:Specimen processed s uccessfully by automated case management director device, [employer] System, [employer] ANCILLARY TESTING HOSPITAL CLEANING SPECIALIST HPV Ordered, Please see separate report 01/30/2018 3:20 PM [facility] Note The pap test is a screening technique, not a diagnostic procedure. ??It is used primarily to screen for squamous cancers and precursor lesions. ??Published studies have shown that it is subject to both false negative and false positive results. ??The pap test should not be used as the sole means to diagnose or exclude pre-malignant and malignant lesions. Cytology is screened and interpreted at [facility] - [address], [place] [address] and [facility] - [address]; [place] [address] and [facility] - [address]; [place] [address] and [facility] [address]; [place] [address] 01/30/2018 3:20 PM HOSPITAL CLEANING SPECIALIST [facility] Other (Cervical/Vagina l) 01/20/2018 1:30 PM HOSPITAL CLEANING SPECIALIST 01/22/2018 6:10 PM HOSPITAL CLEANING SPECIALIST Pat Cabrera MD PATHOLOGY/CYTOLOGY [facility] [address] [place] [address], [place] * (ABNORMAL) LIPID PANEL (03/04/2011 11:51 AM HOSPITAL CLEANING SPECIALIST) CHOLESTEROL,TOTAL 208(H) 110 - 199 mg/dL [facility] TRIGLYCERIDES 44 40 - 149 mg/dL [facility] HDL CHOLESTEROL 100 >40 mg/dL [facility] CHOL/HDL RATIO 2.08 <4.51 [facility] LDL CHOLESTEROL 99 <131 mg/dL [facility] PATIENT STATUS Fasting [facility] Blood specimen (specimen) BLOOD SPECIMEN / Unknown 03/04/2011 11:51 AM HOSPITAL CLEANING SPECIALIST 03/04/2011 11:45 AM HOSPITAL CLEANING SPECIALIST Koki Bran CNM CHEMISTRY [facility] LABORATORY [place] ZIP [address] [address] from Last 3 Months or Most Recently Relevant to Health Maintenance Advance Directives * Full Code (Latest Code Status on File) Date Activated Date Inactivated Comments 05/28/2023 8:08 AM 05/28/2023 12:47 PM Question Answer Comments Code Status Discussion: Reviewed Preferences * Full Code Date Activated Date Inactivated Comments 08/08/2020 4:04 PM 08/08/2020 10:34 PM Question Answer Comments Code Status Discussion: Not Discussed * Full Code Date Activated Date Inactivated Comments 07/05/2020 12:44 PM 07/06/2020 6:01 PM Question Answer Comments Code Status Discussion: Not Discussed * Full Code Date Activated Date Inactivated Comments 07/05/2020 12:43 PM 07/05/2020 12:44 PM Question Answer Comments Code Status Discussion: Not Discussed Care Teams Warp Worker Relationship Specialty Start Date End Date Esvin Manzano MD [address] [place] [address] PCP - General Family Practice 05/14/23 Vicki Rawls MD [address] [place] [address] Surgery - Oncology 06/29/20
--- NOTE | 2023-06-19 15:30 | XR_ITS ---
Patient: FABIAN LION Facility:?[facility] Patient ID:?[id number] Site Patient ID:?[id number]. Site :?1965 Study:?DEXA-Bone Density-06/19/2023 3:55:36 PM Ordering Physician:?SESAR LUCERO Final Report: DXA BONE MINERAL DENSITY STUDY Reason for exam: Use of aromatase inhibitor. Current height (in): 67.5. Weight (lb): 140.0. Menopause age: 55. Ethnicity: White. 1. Have you had a previous hip or vertebral fracture? No. 2. Have you had any fractures during your adult life which did not result from significant trauma (e.g., auto accident)? No. 3. Did either of your parents have a hip fracture? Yes. 4. Do you smoke? No. 5. Have you ever taken Glucocorticoids? No. 6. Do you have rheumatoid arthritis? No. 7. Do you have secondary osteoporosis? No. 8. Do you drink 3 or more alcoholic drinks per day? No. 9. Are you being treated for osteoporosis? No. 10. Have you ever taken any of the following medications: Actonel, Evista, Fosamax, Miacalcin, Reclast, Boniva, Forteo, HRT (i.e. estrogen/hormone therapy), Protelos, Prolia, Vitamin D, Calcium, other ? please specify. ANSWER: Yes, vitamin D. 11. Do you have any of the following medical conditions: Anorexia or bulimia, asthma or emphysema, end stage renal disease, hyperparathyroidism, any seizure disorders, cancer, inflammatory bowel diseases, hysterectomy, other ? please specify. ANSWER: Yes, cancer. 12. What was your maximum height (inches)? 68. 13. Do you perform weight bearing exercise regularly? No. 14. Do you regularly consume dairy products? Yes. 15. Do you drink caffeinated beverages? Yes. 16. At what age did your period start? 15. 17. Are you premenopausal? No. 18. How many full term pregnancies have you had? 4. 19. Have you ever missed your period for more than 6 months in a row (not including or menopause)? No. TECHNIQUE: Bone mineral density study was performed using the [employer]. FINDINGS: The results of the study expressed as bone mineral density (BMD) are as follows: Lumbar spine L1 to L4: BMD: 1.025 g/cm2. T-score: -0.2. Z-score: 1.0. Neck Left: BMD: 0.658 g/cm2. T-score: -1.7. Z-score: -0.6. Right: BMD: 0.725 g/cm2. T-score: -1.1. Z-score: 0.0. Total Left: BMD: 0.842 g/cm2. T-score: -0.8. Z-score: -0.0. Right: BMD: 0.915 g/cm2. T-score: -0.2. Z-score: 0.5. IMPRESSION: Osteopenia. *Comparison exams done prior to 07/2019 were performed on different unit, [employer]. COMPARISON: Compared with scan of 11/30/2020, the bone mineral density has decreased by 5.0 percent at the spine and decreased by 8.1 percent at the hip. FRAX 10-year Fracture Risk Major Osteoporotic Fracture: 14 percent Hip Fracture: 0.8 percent Reported Risk Factors: [place] () Neck BMD=0.658, BMI=21.6, parental fracture AMANDA DELGADILLO M.D. TJI:bhe D& [email or web address] be/Dictated by: Amanda Delgadillo MD @ 06/20/2023 1:53:00 PM Signed by:?Amanda Delgadillo MD @06/25/2023 4:15:48 PM (Electronic Signature)
--- NOTE | 2023-06-24 08:46 | W.ED.EKGINT ---
EKG Interpretation EKG Data Attestation: I personally reviewed and interpreted this ECG as follows: Date of EKG Tracin06/16/23 EKG interpretation date: 06/24/23 Prior EKG tracings: available for review Interpretation: EKG is reviewed from above date. This is compared to an EKG from 05/23/2023. Heart rhythm remains sinus, ventricular rate is 68, QT interval his length and note appreciably to 446, QTC baz is now 474. Diffuse ST wave flattening is noted throughout the precordium, Assessment: Nonspecific changes of ST wave, along with QT interval increase, consider changes associated with medications or electrolyte abnormalities.
== END 2023-06-19 15:13 | disposition home or self-care (01) ==
LOC: RAD 15:12
PROVIDERS: PCP Family Medicine; Visit Provider Physician Assistant
DX: R94.31 Abnormal electrocardiogram [ECG] [EKG] (principal); Z79.811 Long term (current) use of aromatase inhibitors
CPT/HCPCS: 77080; 93010

== ENCOUNTER 2023-06-23 10:50 | Outpatient (CLI) | payer BC, SELFPAY ==
--- OUTSIDE RECORDS SUMMARY | 2023-06-23 10:52 | XMS_ITS | Clinical Summary ---
Author Name Unknown Organization [employer] [facility] Address [place], [place] [address] Care Team Providers Care Poolroom Table Attendant Name Role Phone Vicki Rawls MD Unavailable Esvin Manzano MD Primary Care Provider [phone] Allergies Active Allergy Reactions Criticality Noted Date [...] from 05/23/2020:Stage IB(cT2, cN0, cM0, G2, ER+, FL+, HER2-) - Signed by Vicki Rawls MD on 06/30/2020 Pathologic:Stage IIA(pT2, pN1a, cM0, G3, ER+, FL+, HER2-) - Signed by Monika Grubbs PA on 07/18/2020 Hypertension 06/20/2011 Vitamin D deficiency 03/07/2011 Genital warts 10/13/2009 Anxiety state, unspecified 10/13/2009 Encounters Date Type Department Care Team Description 06/04/2023 1:00 PM CDT Telemedicine [facility] [address] [place] [address] Grazyna Bruno MS, [facility] Counseling (Genetic counseling/ ) 06/04/2023 Travel 06/02/2023 Telephone [facility] [address] [place] [address] Lupe Lubin Cancer Genetics 05/28/2023 8:26 AM CDT Anesthesia Event [facility] [address] [place] [address] Cathie Sung MD CrawfordSaima, ROLLER COASTER ENGINEER 05/28/2023 7:50 AM CDT - 05/28/2023 9:05 AM CDT Surgery [facility] [address] [place] [address] Jarod Bonilla MD ENDOBRONCHIAL ULTRASOUND WITH FNA 05/28/2023 6:52 AM CDT - 05/28/2023 10:42 AM CDT Hospital Encounter [facility] [address] [place] [address] Jarod Bonilla MD Discharge Disposition: Home Self Care 05/27/2023 Travel 05/21/2023 Transcribe Orders [facility] [address] [place] [address] Betsey Carlin MD 05/15/2023 8:26 AM CDT - 05/15/2023 11:59 PM CDT Hospital Encounter [address] [address] Violet Benavides PA-C Localized swelling, mass, or lump of upper extremity, left; Malignant neoplasm of right female breast, unspecified estrogen receptor status, unspecified site of breast (HC); 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) 05/15/2023 Travel 05/05/2023 Lab Requisition [facility] [phone] Unknown, Doctor 05/05/2023 Lab Requisition [facility] [phone] Unknown, Doctor from Last 3 Months Immunizations Name Administration Dates Next Due Tdap 11/01/2008 Family History Medical History Relation Name Comments Hypertension Brother Hypertension Father Other Father parkinson's Cancer Maternal Aunt Heart Disease Maternal Grandfather MD (ag e 60s) Hypertension Mother Cancer-breast Other Mat GGM Hypertension Sister Relation Name Status Comments Brother Father Maternal Aunt Maternal Grandfather Mother Alive Other Mat GGM Sister Social History Tobacco Use Types Packs/Day Years Used Date Smoking Tobacco: Every Day Cigarettes 0.3 37.3 Started: 1985 Smokeless Tobacco: Never Comments: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/ 5 cigs per day Alcohol Use [...] 06/22/2021 10:39 AM CDT Plan of Treatment Upcoming Encounters Date Type Department Care Team (Late st Contact Info) Description 06/23/2023 11:00 AM CDT Ancillary Procedure [facility] [address] [place] [address] Health Maintenance Due Date Last Done Comments [...] this topic Medical Devices Implanted Type Area Business Systems Consultant Device Identifier Shelf Expiration Date Model / Serial / Lot [id number] 4mesh [id number] Alloderm Select Thick Perforated Implanted:Qty: 1 on 07/05/2020 by Eleazar Duran MD at [facility] Explanted:at [facility] (Quantity not on file) Right: Breast [employer] 10/24/2021 [id number] / [id number] / [id number] 0mesh [id number] Alloderm Select Thick Perforated Implanted:Qty: 1 on 07/05/2020 by Eleazar Duran MD at [facility] Explanted:at [facility] (Quantity not on file) Left: Breast [employer] 10/24/2021 [id number] / [id number] / [id number] tissue Aircraft Mechanic Structures Breast [place] Cpx 4 Plus Smooth 350cc Implanted:Qty: 1 on 07/05/2020 by Eleazar Duran MD at [facility] Explanted:at [facility] (Quantity not on file) Left: Breast [employer] J [employer] 02/13/2024 [id number] / [id number] Description:TISSUE FUEL INJECTION SERVICER BREAST MENTOR CPX 4 PLUS SMOOTH 350CC [id number] [id number] [id number] Implanted:Qty: 1 on 07/05/2020 by Eleazar Duran MD at [facility] Explanted:at [facility] (Quantity not on file) Right: Breast [employer] 02/13/2024 [id number] / [id number] Description:BREAST IMPLANT C PX4 PLUS SM TE MH 350CC Procedures Procedure Name Priority Date/Time Associated Diagnosis Comments FOCUS Timed 05/28/2023 9:34 AM CDT PATH NON DIRECTOR GRAPHICS CYTOLOGY Today 05/28/2023 9:05 AM CDT ENDOTRACHEAL [...] MALIGNANT TISSUE Routine 05/05/2023 11:45 AM CDT DIRECTOR GRAPHICS THIN PREP PAP SCREEN IMAGED Routine 01/20/2018 1:30 PM AUTO FINANCE SALES REP LIPID PANEL Routine 03/04/2011 11:51 AM AUTO FINANCE SALES REP Routine general medical examination at a [facility] from Last 3 Months or Most Recently Relevant to Health Maintenance Results * FOCUS (05/28/2023 9:34 AM CDT) Aspirate (Station 7 Subcarinal Lymph Node) 05/28/2023 9:34 AM CDT 06/06/2023 12:13 PM CDT Jarod Bonilla MD LABORATORY Performing Organization Address City/State/[facility] Co de Phone Number [facility] LABORATORY [address] [place] [address], * PATH NON DIRECTOR GRAPHICS CYTOLOGY (05/28/2023 9:05 AM CDT) Case Report Medical Cytology Report ? Case: [id number] ? Authorizing Provider: ??Jarod Bonilla MD ?Collected: ? 05/28/2023 0905 ? Ordering Location: ? [facility] ?Received: ?05/28/2023 0954 ? Hospital ? Pathologist: ? Mukesh Schaefer MD ? Specimens: ?? A) - Station 4R Lower Paratracheal Lymph Node, station 4r ? B) - Station 7 Subcarinal Lymph Node ? 06/13/2023 3:07 PM CDT [facility] LABORATORY-C ENTRAL LABORATORY Amendment 05/30/2023 - Amendment issued to incorporate ancillary studies. 06/13/2023 - Amendment to report [facility] Solid Tumor Targeted (52 gene) Next Generation Sequencing results. Please see diagnosis and attached scanned report. 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 06/13/2023 3:07 PM CDT [facility] Gross Description A) Received identified as [...] more than 72 hours. 06/13/2023 3:07 PM CDT [facility]-C ENTRAL LABORATORY Adequacy Assessment A&B) TYesi. assessed adequacy from the air-dried smears at the time of the procedure with an impression of Adequate. 06/13/2023 3:07 PM [facility] Microscopic Description Specimen adequacy: Adequate for interpretation. [...] lung primary (negative TTF1). 06/13/2023 3:07 PM [facility] Molecular Diagnostics Summary Preanalytical microdissection of tissue/cytology slides for Next Generation Sequencing was performed according to laboratory protocol as follows: Microscopic examination was performed by a pathologist, Dr. Schaefer, to determine specimen adequacy and identify areas of tumor for isolation. Areas of tumor selected and marked by the pathologist were manually harvested by a laboratory animal facility supervisor for nucleic acid extraction. 06/13/2023 3:07 PM [facility] SYNOPTIC REPORTING Breast Biomarker Reporting Template BREAST: [...] Image Analysis: ?PgR 06/13/2023 3:07 PM CDT [email or web address] LABORATORY-C ENTRAL LABORATORY Additional Information Patients with breast [...] in eligibility currently). Cytology is screened at [facility], Central Laboratory - [address], [place] [address] and [facility] Laboratory - [address] [place] [address] and [facility] Laboratory - [address] [place] [address] Interpreted at [facility], Central Laboratory - [address], [place] [address] 06/13/2023 3:[address] [facility]-C ENTRKS LABORATORY Aspirate (Station 4R Lower Paratracheal Lymph Node) 05/28/2023 9:05 AM CDT 05/28/2023 9:54 AM CDT Specimen obtained by aspiration (specimen) (Station 7 Subcarinal Lymph Node) 05/28/2023 9:34 AM CDT 05/28/2023 9:54 AM CDT Jarod Bonilla MD PATHOLOGY/CYTOLOGY [facility] LABORATORY [address] [place] [address], * HCHG TUBE PR1, HCHG STYLET PR1, [...] 1965 Admit Type: Ambulatory Instrument Name: BRONCH [id number],EBUS [id number] Procedure: Bronchoscopy Proceduralist: Jarod Bonilla MD Referring MD: Jarod Bonilla MD Indications/Pre-Op Diagnosis: Bilateral hilar lymphadenopathy, Mediastinal adenopathy, Breast cancer Medications: General Anesthesia Procedure Description: Risks of bleeding, infection, pneumothorax, need for surgery, remote chance of and alternatives were discussed, and the patient gave informed consent. The endoscope [id number] was introduced through the mouth, via the endotracheal tube (the patient was intubated for the procedure)and advanced to the tracheobronchial tree. The endoscope [id number] was introduced through the mouth, via the [...] interval removal of a right chest tissue post splitter. Skin thickening with uptake and bandlike soft [...] interval removal of a right chest tissue post splitter. Skin thickening and bandlike soft tissue/muscular uptake [...] For Patients: As a result of the Cures Act, medical imagingexams and procedure reports [...] transverse process lesion, SUV max 4.7. Sclerotic A7jvgccobrl body and right pedicle lesion, SUV max [...] with interval removal of a right chesttissue post splitter. Skin thickening with uptake and bandlike softtissue/muscular [...] PM CDT Doctor Unknown LAB BILL ONLY [facility]-CEN[facility]AL LABORATORY [address] [place] [address], * PATH BREAST CORE BIOPSY (05/05/2023 11:45 AM CDT) Case Report Pathology Report ?Case: [id number] ? Authorizing Provider: ??Unknown, Doctor ?Collected: ? 05/05/2023 1145 ? Ordering Location: ? [facility] ?Received: ?05/06/2023 0650 ? Pathologist: ? Kevin Bush MD ? Specimens: ?? A) - Left Breast ? B) - Left Breast Core Ultrasound Biopsy ? 05/12/2023 3:38 PM CDT [facility] LABORATORY-C ENTRAL LABORATORY Amendment 05/08/2023 - Amendment issued to incorporate ancillary studies. 05/09/2023 - Amendment issued to incorporate ancillary studies on part B. 05/12/2023 - Amendment issued to incorporate ancillary HER2 FISH studies. 05/12/2023 3:38 PM CDT [facility] LABORAT[facility]-C ENTRAL LABORATORY Final Diagnosis A) AXILLA, LEFT, MASS A, ULTRASOUND CORE BIOPSY: 1. 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 a. Shanice grade: II of III; Shanice score: 7 [...] upon clinical request) 05/12/2023 3:[address] [facility] LABORATORY-C ENTRAL LABORATORY Amendment electronically signed by [...] positive right breast carcinoma in 2020 (see [id number]). ??The current invasive carcinoma is morphologically similar [...] Dr. Cielo olmstead. 05/12/2023 3:38 PM CDT [facility]-C ENTRAL LABORATORY Clinical Information Patient with history of invasive ductal carcinoma of right breast ([id number]) with multiple positive right axillary lymph nodes. Treated with bilateral mastectomy. A) LEFT AXILLARY MASS, 12 mm B) LEFT AXILLARY MASS, 7 mm 3.5 cm apart 05/12/2023 3:38 PM CDT [facility]-C ENTRAL LABORATORY Gross Description A) Label: Patient's name [...] SREEDHAR 05/06/2023 ?? 05/12/2023 3:38 PM CDT [facility] ENTRAL LABORATORY Microscopic Description The final diagnosis is based on microscopic examination of appropriate sections of all specimens. A) Cores with green ink. B) Cores with black ink. 05/12/2023 3:38 PM CDT [facility] LABORATORYC [facility] LABORATORY Cytogenetics Summary Cytogenetic testing has been ordered and will be reported separately. 05/12/2023 3:38 PM CDT [facility] LABORATORY SYNOPTIC REPORTING Breast Biomarker Reporting Template [...] Analysis: ?PgR ?? Comment(s): ?The FDA approved [employer] DNA Probe Kit was developed and its performance characteristics determined by [employer]. ??This test incorporates minor modifications to protocol and validated by the [facility] and [facility] to yield equivocal or superior [...] Image Analysis: ?PgR 05/12/2023 3:38 PM CDT [facility] LAB[facility]-C [facility] LAB[facility] Additional Information Patients with breast cancers [...] not result in eligibility currently). Interpreted at [facility], Central Laboratory - [address], [place] [address] 05/12/2023 3:38 PM CDT [facility] [email or web address] LABORATORY-[facility] LABORATORY Other (Left Breast) 05/05/2023 11:45 AM CDT 05/06/2023 6:50 AM CDT Specimen (specimen) (Left Breast Core Ultrasound Biopsy) 05/05/2023 11:47 AM CDT 05/06/2023 7:41 AM CDT Doctor Unknown PATHOLOGY/CYTOLOGY Performing Organization Address City/[facility]/ZIP Co de Phone Number [facility] [address] [place] [address], [place] * CG HER2 BREAST (05/05/2023 11:45 AM CDT) Other (Left Breast) 05/05/2023 11:45 AM CDT 05/08/2023 11:04 AM CDT Doctor Unknown LABORATORY Performing Organization Address City/[facility]/ZIP Co de Phone Number [facility] [address] [place] [address], [place] * CYTOGENETICS MALIGNANT TISSUE STUDIES (05/05/2023 11:45 AM CDT) RFR Breast cancer 05/12/2023 2:23 PM CDT [facility] LABORATORY TEST & RESULT SUMMARY HER2 FISH Breast: See pathology report [id number]. See comments. 05/12/2023 2:23 PM CDT [facility] LABORATORY _ 05/12/2023 2:23 PM CDT [facility] LABORATORY COMMENTS This record is used as an internal laboratory test designed for workflow purposes only. 05/12/2023 2:23 PM CDT [facility] LABORATORY SOURCE Left Breast (Paraffin Slides A1 2 uns) [id number] 05/12/2023 2:23 PM CDT [facility] LABORATORY Other (Left Breast) 05/05/2023 11:45 AM CDT 05/08/2023 11:04 AM CDT Doctor Unknown LABORATORY Performing Organization Address City/State/[facility] Co de Phone Number [facility] [address] [place] [address], * DIRECTOR GRAPHICS THIN PREP PAP SCREEN IMAGED (01/20/2018 1:30 PM AUTO FINANCE SALES REP) Case Report Gynecologic Cytology Report ? Case: [id number] ? Authorizing Provider: ??Pat Cabrera MD ? Collected: ? 01/20/2018 1330 ? First Screen: ?Mariella Lynch ?Received: ?01/22/2018 1810 ? Specimen: ?DIRECTOR GRAPHICS ThinPrep Vial Screening, Cervical/Vaginal ? 01/30/2018 3:20 PM [facility] ENTRAL LABORATORY INTERPRETATION/ RESULT NEGATIVE FOR INTRAEPITHELIAL LESION OR MALIGNANCY (NIL) (none) 01/30/2018 3:20 PM [facility] IMEN ADEQUACY Satisfactory for evaluation No endocervical component seen 01/30/2018 3:20 PM [facility] LAB[facility] HPV REQUEST HPV and PAP 01/30/2018 3:20 PM [facility] LABORATORY Automated Review Successful 01/30/2018 3:20 PM [facility] LABORATORY Comment:Specimen processed s uccessfully by automated manager knowledge device, ThinPrep Imaging System, [employer] ANCILLARY TESTING DIRECTOR GRAPHICS HPV Ordered, Please see separate report 01/30/2018 3:20 PM [facility] LAB[facility]AT[facility] Note The pap test is a [...] lesions. Cytology is screened and interpreted at [facility] - [address], [place] [address] and [facility] - [address]; [place] [address] and [facility] - [address]; [place] [address] and [facility] [address]; [place] [address] 01/30/2018 3:20 PM [facility] LABORATORY Other (Cervical/Vagina l) 01/20/2018 1:30 PM AUT[employer] FINANCE SALES REP 01/22/2018 6:10 PM AUTO FINANCE SALES REP Pat Cabrera MD PATHOLOGY/CYTOLOGY [facility] LABORATORY-CENTRAL LABORATORY [address] [place] [address], * (ABNORMAL) LIPID PANEL (03/04/2011 11:51 AM AUTO FINANCE SALES REP) CHOLESTEROL,TOTAL 208(H) 110 - 199 mg/dL [facility] TRIGLYCERIDES 44 40 - 149 mg/dL [facility] HDL CHOLESTEROL 100 >40 mg/dL [facility] CHOL/HDL RATIO 2.08 <4.51 [facility] LDL CHOLESTEROL 99 <131 mg/dL [facility] PATIENT STATUS Fasting [facility] Blood specimen (specimen) BLOOD SPECIMEN / Unknown 03/04/2011 11:51 AM AUTO FINANCE SALES REP 03/04/2011 11:45 AM AUTO FINANCE SALES REP [employer]ES[employer] CHEMISTRY [facility] LABORATORY INTERNAL ZIP [address] [place] [address] from Last 3 Months or Most Recently [...] Code Status Discussion: Not Discussed Care Teams Poolroom Table Attendant Relationship Specialty Start Date End Date Esvin Manzano MD [address] [place] [address] PCP - General Family Practice 05/14/23 Vicki Rawls MD [address] [address] Surgery - Oncology 06/29/20
== END 2023-06-23 10:51 | disposition home or self-care (01) ==
PROVIDERS: PCP Family Medicine; Visit Provider Internal Medicine Hematology & Oncology
DX: R94.31 Abnormal electrocardiogram [ECG] [EKG] (principal)
CPT/HCPCS: 93306

== ENCOUNTER 2023-07-17 15:08 | Outpatient (CLI) | payer OTHER, SELFPAY ==
--- OUTSIDE RECORDS SUMMARY | 2023-07-17 15:10 | XMS_ITS | Clinical Summary ---
Author Organization [employer] [facility] Address [place], [place] [address] Care Team Providers Care Singer And Unloader Name Role Phone Vicki Rawls MD Unavailable [phone] Esvin Manzano MD Primary Care Provider [phone] Allergies Active Allergy Reactions Criticality Noted Date Comments Iron Hives 04/24/2009 While Lisinopril Anaphylaxis,Angioedema High 06/27/2020 Medications Medication Sig Dispensed Refills Start Date End Date Status amLODIPine (NORVASC) 10 mg tablet Take 10 mg by mouth once daily. 03/27/2020 Active acetaminophen (TYLENOL) 325 mg tabletIndications: Malignant neoplasm of lower-inner quadrant of right breast of female, estrogen receptor positive (HC) Take 3 Tablets (975 mg) by mouth every 6 hours if needed. Max acetaminophen dose: 4000mg in 24 hrs. 07/06/2020 Active methocarbamoL (ROBAXIN) 750 mg tabletIndications: Malignant neoplasm of lower-inner quadrant of right breast [...] mg by mouth once daily. 04/01/2023 Active Active Problems Problem Noted Date Diagnosed Date Malignant neoplasm of lower- inner quadrant of right breast of female, estrogen receptor positive 06/30/2020 Cancer Staging:Clinical stage from 05/23/2020:Stage IB(cT2, cN0, cM0, G2, ER+, HI+, HER2-) - Signed by Vicki Rawls MD on 06/30/2020 Pathologic:Stage IIA(pT2, pN1a, cM0, G3, ER+, HI+, HER2-) - Signed by Monika Grubbs PA on 07/18/2020 Hypertension 06/20/2011 Vitamin D deficiency 03/07/2011 Genital warts 10/13/2009 Anxiety state, unspecified 10/13/2009 Encounters Date Type Department Care Team Description 06/23/2023 11:00 AM CDT Ancillary Procedure [address] [address] 06/23/2023 Travel 06/04/2023 1:00 PM CDT Telemedicine [facility] [address] [place] [address] Grazyna Bruno MS, [facility] Counseling (Genetic counseling/ ) 06/04/2023 Travel 06/02/2023 Telephone [facility] [address] [place] [address] Lupe Lubin Cancer Genetics 05/28/2023 8:26 AM CDT Anesthesia Event [facility] [address] [place] [address] Cathie Sung MD Crawford, Stacie L, SHIVAM 05/28/2023 7:50 AM CDT - 05/28/2023 9:05 AM CDT Surgery [facility] [address] [place] [address] Jarod Bonilla MD ENDOBRONCHIAL ULTRASOUND WITH FNA 05/28/2023 6:52 AM CDT - 05/28/2023 10:42 AM CDT Hospital Encounter [facility] [address] [place] [address] Jarod Bonilla MD Discharge Disposition: Home Self Care 05/27/2023 Travel 05/21/2023 Transcribe Orders [facility] [place] [address] [place] [address] Bambi Stanley MD 05/15/2023 8:26 AM CDT - 05/15/2023 11:59 PM CDT Hospital Encounter [facility] [address] [place] [address] Violte Benavides PA-C Localized swelling, mass, or lump of upper extremity, left; Malignant neoplasm of right female breast, unspecified estrogen receptor status, unspecified site of breast (HC); 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) 05/15/2023 Travel 05/05/2023 Lab Requisition [facility] [phone] Unknown, Doctor 05/05/2023 Lab Requisition [facility] [phone] Unknown, Doctor from Last 3 Months Immunizations Name Administration Dates Next Due Tdap 11/01/2008 Family History Medical History Relation Name Comments Hypertension Brother Hypertension Father Other Father parkinson's Cancer Maternal Aunt Heart Disease Maternal Grandfather [place] (ag e 60s) Hypertension Mother Cancer-breast Other Mat GGM Hypertension Sister Relation Name Status Comments Brother Father Maternal Aunt Maternal Grandfather Mother Alive Other Mat GGM Sister Social History Tobacco Use Types Packs/Day Years Used Date Smoking Tobacco: Every Day Cigarettes 0.3 37.4 Started: 1986 Smokeless Tobacco: Never Comments:Working on decreasi ng/ 5 cigs per day Alcohol Use [...] (7 lb 12 oz) M Vag June cierra GRIFFITHUE L Comments:INDUCED - PIT OCIN 07/07 Para 3.03 kg (6 lb 11 oz) M Vag Dece ased TOMMY Comments: OF SIDS - 6 MO 12/12 Para 2.98 kg (6 lb 9 oz) M CS-Unspec June cierra DEBORAH Comments: LABOR 27 WKS 08/04 Para [...] this topic Medical Devices Implanted Type Area Put In Beat Adjuster Device Identifier Shelf Expiration Date Model / Serial / Lot [id number] Alloderm Select Thick Perforated Implanted:Qty: 1 on 07/05/2020 by Eleazar Duran MD at [facility] Explanted:at [facility] (Quantity not on file) Right: Breast [employer] 10/24/2021 [id number] / [id number] / [id number] 0mesh [id number] Alloderm Select Thick Perforated Implanted:Qty: 1 on 07/05/2020 by Eleazar Duran MD at [facility] Explanted:at [facility] (Quantity not on file) Left: Breast [employer] 10/24/2021 [id number] / [id number] / [id number] tissue Clinical Trial Head Breast Phillips Cpx 4 Plus Smooth 350cc Implanted:Qty: 1 on 07/05/2020 by Eleazar Duran MD at [facility] Explanted:at [facility] (Quantity not on file) Left: Breast [employer] 02/13/2024 [id number] / [id number] Description:TISSUE WORKFORCE ANALYST BREAST MENTOR CPX 4 PLUS SMOOTH 350CC [id number] Implanted:Qty: 1 on 07/05/2020 by Eleazar Duran MD at [facility] Explanted:at [facility] (Quantity not on file) Right: Breast [employer] 02/13/2024 [id number] / [id number] Description:BREAST IMPLANT C PX4 PLUS SM TE MH 350CC Procedures Procedure Name Priority Date/Time Associated Diagnosis Comments ECHO TTE COMPLETE WO CONTRAST Routine 06/23/2023 11:55 AM CDT Abnormal EKG FOCUS Timed 05/28/2023 9:34 AM CDT PATH NON HOT BOX SPOTTER CYTOLOGY Today 05/28/2023 9:05 AM CDT ENDOTRACHEAL [...] MALIGNANT TISSUE Routine 05/05/2023 11:45 AM CDT HOT BOX SPOTTER THIN PREP PAP SCREEN IMAGED Routine 01/20/2018 1:30 PM SUGAR REPROCESS OPERATOR HEAD LIPID PANEL Routine 03/04/2011 11:51 AM SUGAR REPROCESS OPERATOR HEAD Routine general medical examination at a health care facility from Last 3 Months or Most Recently Relevant to Health Maintenance Results * ECHO TTE COMPLETE WO CONTRAST (06/23/2023 11:55 AM CDT) AORTIC VALVE MEAN PG 9 mmHg EJECTION FRACTION 69 % LVEDD 4.1 cm Anatomical Region Laterality Modality Ultrasound 06/23/2023 11:2 1 AM CDT Narrative 06/23/2023 1:03 PM CDT ECHOCARDIOGRAM NIEVES HAM ? Accession#: ?? [id number] : ?1965 57 years Study Date: ?? 06/23/2023 11:21:00 AM Gender: F ?BP: ? 163/94 mmHg Height: 170.00 cm ?BSA: ?1.75 m? ? ? Weight: 65.00 kg ? Tech: ? MSR ? Referring MD: BAMBI STANLEY Site: ? [facility] Reading Location: Mobile OP Patient Location: Outpatient. Procedure: 2D, Spectral Doppler and Color Doppler. Indication for study: Abnormal EKG Cardiac Rhythm: Normal sinus.Study quality: Fair. Final Impressions: 1. Normal left ventricular size, normal wall thickness, normal global and regional systolic function, calculated EF of 69 %. 2. Right ventricular cavity size is normal, global systolic RV function is normal. 3. No significant valve disease detected. Comparison Compared to prior exam of 07/28/20, there has been no significant change. Chamber Sizes and Function Normal left ventricular size, normal wall thickness, normal global systolic function, calculated EF of 69 %. Left atrial size is normal. Right ventricular cavity size is normal, global systolic RV function is normal. RV wall thickness is normal. The right atrium is normal. The pulmonary artery is of normal size and origin. The sinus of Valsalva is normal sized. The ascending aorta is normal sized. Valves, RV Pressures and Diastolic Function The aortic valve is trileaflet, no stenosis and no regurgitation. The mitral valve is normal in structure, no mitral regurgitation. Normal diastolic function. The tricuspid valve is normal in structure. Tricuspid regurgitation is trace regurgitation. The pulmonic valve is normal. No pulmonary regurgitation. Masses, Effusion, Shunts There is no pericardial effusion. The inferior vena cava is normal sized, respiratory size variation greater than 50%. No left to right shunting was detected by limited color flow Doppler interrogation of the interatrial septum. MEASUREMENTS AND CALCULATIONS 2-D Measurements and LV Function: LVID (d) 4.1 cm Planimetered EF 69 % LVID (s) 2.6 cm LV FS% (2D) ? 37 % IVS (d) ??0.7 cm LVOT diameter ?? 2.1 cm LVPW (d) 0.8 cm HR ?43 bpm Ao Sinus 3.4 cm LA Vol index ?33 ml/m2 Asc Ao ?? 3.4 cm RV Max 4C (d) ?? 3.8 cm Diastology: Mitral ?Tissue Doppler E Peak 0.6 m/s ??e', Septum ? 0.12 m/s A Peak 0.7 m/s ??e', Lateral ?0.12 m/s E/A ?0.8 ?E/e' Average ?? 4.98 DT ? 135 msec Aortic Valve: Vmax ? 2.0 m/s ??JOSE (V) ?? 2.65 cm? ? ? VTI ?0.43 m ?? JOSE (I) ?? 2.33 cm? ? ? LVOT V max 1.5 m/s ??Max PG ?16 mmHg LVOT VTI ?? 0.30 m ?? Mean PG ?? 9 mmHg SV ? 101 ml ?? Dim Index 0.68 SV index ?? 58 ml/m? ? ? CO ?4.4 l/min ?CI ?2.5 l/min/m? ? ? Mitral Valve: MVA ? 5.6 cm? ? ? MV P 1/2 ??39 msec MV Mean G 2 mmHg MV VTI ?0.25 m Tricuspid Valve and estimated PA pressures: TAPSE 2.6 cm . This study was interpreted by an [facility] accredited facility. CC: HIM (med records) [facility]. ??Final ?? Procedure Note Sammy Huynh MD - 06/23/2023 ECHOCARDIOGRAM NIEVES HAM : 1965 57 years Study Date: 06/23/2023 11:21:00 AM Gender: F BP: 163/94 mmHg Height: 170.00 cm BSA: 1.75 m? ? ? Weight: 65.00 kg Tech: MSR Referring MD: BAMBI STANLEY Site: [facility] Reading Location: Mobile OP Patient Location: Outpatient. Procedure: 2D, Spectral Doppler and Color Doppler. Indication for study: Abnormal EKG Cardiac Rhythm: Normal sinus.Study quality: Fair. Final Impressions: 1. Normal left ventricular size, normal wall thickness, normal global andregional systolic function, calculated EF of 69 %. 2. Right ventricular cavity size is normal, global systolic RV functionis normal. 3. No significant valve disease detected. Comparison Compared to prior exam of 07/28/20, there has been no significant change. Chamber Sizes and Function Normal left ventricular size, normal wall thickness, normal globalsystolic function, calculated EF of 69 %. Left atrial size is normal.Right ventricular cavity size is normal, global systolic RV function isnormal. RV wall thickness is normal. The right atrium is normal. Thepulmonary artery is of normal size and origin. The sinus of Valsalva isnormal sized. The ascending aorta is normal sized. Valves, RV Pressures and Diastolic Function The aortic valve is trileaflet, no stenosis and no regurgitation. Themitral valve is normal in structure, no mitral regurgitation. Normaldiastolic function. The tricuspid valve is normal in structure. Tricuspidregurgitation is trace regurgitation. The pulmonic valve is normal. Nopulmonary regurgitation. Masses, Effusion, Shunts There is no pericardial effusion. The inferior vena cava is normal sized,respiratory size variation greater than 50%. No left to right shunting wasdetected by limited color flow Doppler interrogation of the interatrialseptum. MEASUREMENTS AND CALCULATIONS 2-D Measurements and LV Function: LVID (d) 4.1 cm Planimetered EF 69 % LVID (s) 2.6 cm LV FS% (2D) 37 % IVS (d) 0.7 cm LVOT diameter 2.1 cm LVPW (d) 0.8 cm HR 43 bpm Ao Sinus 3.4 cm LA Vol index 33 ml/m2 Asc Ao 3.4 cm RV Max 4C (d) 3.8 cm Diastology: Mitral Tissue Doppler E Peak 0.6 m/s e', Septum 0.12 m/s A Peak 0.7 m/s e', Lateral 0.12 m/s E/A 0.8 E/e' Average 4.98 DT 135 msec Aortic Valve: Vmax 2.0 m/s JOSE (V) 2.65 cm? ? ? VTI 0.43 m JOSE (I) 2.33 cm? ? ? LVOT V max 1.5 m/s Max PG 16 mmHg LVOT VTI 0.30 m Mean PG 9 mmHg SV 101 ml Dim Index 0.68 SV index 58 ml/m? ? ? CO 4.4 l/min CI 2.5 l/min/m? ? ? Mitral Valve: MVA 5.6 cm? ? ? MV P 1/2 39 msec MV Mean G 2 mmHg MV VTI 0.25 m Tricuspid Valve and estimated PA pressures: TAPSE 2.6 cm . This study was interpreted by an [facility] accredited facility. CC: [facility]) [facility]. Final Bambi Stanley MD ECHO ORD * FOCUS (05/28/2023 9:34 AM CDT) Aspirate (Station 7 Subcarinal Lymph Node) 05/28/2023 9:34 AM CDT 06/06/2023 12:13 PM CDT Jarod Bonilla MD LABORATORY [facility] [address] [place] [address], * PATH NON HOT BOX SPOTTER CYTOLOGY (05/28/2023 9:05 AM CDT) Case Report Medical Cytology Report ? Case: [id number] ? Authorizing Provider: ??Jarod Bonilla MD ?Collected: ? 05/28/2023 0905 ? Ordering Location: ? [facility] ?Received: ?05/28/2023 0954 ? Hospital ? Pathologist: ? Mukesh Schaefer MD ? Specimens: ?? A) - Station 4R Lower Paratracheal Lymph Node, station 4r ? B) - Station 7 Subcarinal Lymph Node ? 06/13/2023 3:07 PM CDT [facility] ENTRAL LABORATORY Amendment 05/30/2023 - Amendment issued to incorporate ancillary studies. 06/13/2023 - Amendment to report [place] Solid Tumor Targeted (52 gene) Next Generation Sequencing results. Please see diagnosis and attached scanned report. 06/13/2023 3:07 PM CDT [facility] ENTROH LAB[facility]ATORY Final Diagnosis A) LYMPH NODE, THORACIC [...] carcinoma of breast 06/13/2023 3:07 PM CDT [facility] ENTRAL [facility]AT[facility] Amendment electronically signed by Mukesh Schaefer MD on 06/13/2023 at 3:07 PM Amendment electronically signed by Muna Root MD on 05/30/2023 at 2:58 PM Clinical Information Patient with known invasive ductal carcinoma of bilateral breasts with confirmed metastatic disease in axillary lymph nodes. 06/13/2023 3:07 PM CDT [facility] Gross Description A) Received identified as [...] than 72 hours. 06/13/2023 3:07 PM [facility] Adequacy Assessment A&B) Asad assessed adequacy from the air-dried smears at the time of the procedure with an impression of Adequate. 06/13/2023 3:07 PM T [facility] Microscopic Description Specimen adequacy: Adequate for [...] lung primary (negative TTF1). 06/13/2023 3:07 PM [facility] Molecular Diagnostics Summary Preanalytical microdissection of tissue/cytology slides for Next Generation Sequencing was performed according to laboratory protocol as follows: Microscopic examination was performed by a pathologist, Dr. Schaefer, to determine specimen adequacy and identify areas of tumor for isolation. Areas of tumor selected and marked by the pathologist were manually harvested by a chemical laboratory tester for nucleic acid extraction. 06/13/2023 3:07 PM CDT [facility] SYNOPTIC REPORTING Breast Biomarker Reporting Template [...] Image Analysis: ?PgR 06/13/2023 3:07 PM CDT [facility] ENTROH LABORATORY Additional Information Patients with breast cancers [...] in eligibility currently). Cytology is screened at [facility], Central Laboratory - [address], [place] [address] and [facility] - [address], [place] [address] and [facility] - [address] [place] [address] Interpreted at [facility], Central Laboratory - [address], [place] [address] 06/13/2023 3:07 PM CDT [facility]-C ENTRAL LABORATORY Aspirate (Station 4R Lower Paratracheal Lymph Node) 05/28/2023 9:05 AM CDT 05/28/2023 9:54 AM CDT Specimen obtained by aspiration (specimen) (Station 7 Subcarinal Lymph Node) 05/28/2023 9:34 AM CDT 05/28/2023 9:54 AM CDT Jarod Bonilla MD PATHOLOGY/CYTOLOGY Performing Organization Address City/State/[facility] Co de Phone Number [facility] [address] [place] [address], * HCHG TUBE PR1, HCHG STYLET PR1, [...] Bonilla MD - 05/28/2023 9:59 AM CDT [facility] Patient Name: Nieves Ham Procedure Date: 05/28/2023 Gender: Female Date of : 1965 Admit Type: Ambulatory Instrument Name: BRONCH [id number] [id number] Procedure: Bronchoscopy Proceduralist: Jarod Bonilla MD Referring MD: Jarod Bonilla MD Indications/Pre-Op Diagnosis: Bilateral hilar lymphadenopathy, Mediastinal adenopathy, Breast cancer Medications: General Anesthesia Procedure Description: Risks of bleeding, infection, pneumothorax, need for surgery, remote chance of and alternatives were discussed, and the patient gave informed consent. The endoscope [id number] was introduced through the mouth, via the endotracheal tube (the patient was intubated for the procedure)and advanced to the tracheobronchial tree. The endoscope [id number] was introduced through the mouth, via the [...] interval removal of a right chest tissue assembly inspector. Skin thickening with uptake and bandlike soft [...] For Patients: ??As a result of the Cures Act, medical imaging exams and procedure [...] interval removal of a right chest tissue assembly inspector. Skin thickening and bandlike soft tissue/muscular uptake [...] transverse process lesion, SUV max 4.7. Sclerotic H1hmeovofmj body and right pedicle lesion, SUV max [...] with interval removal of a right chesttissue assembly inspector. Skin thickening with uptake and bandlike softtissue/muscular [...] PM CDT Doctor Unknown LAB BILL ONLY [facility]ITAL[facility] [address] [place] [address], * PATH BREAST CORE BIOPSY (05/05/2023 11:45 AM CDT) Case Report Pathology Report ?Case: [id number] ? Authorizing Provider: ??Unknown, Doctor ?Collected: ? 05/05/2023 1145 ? Ordering Location: ? [facility] ?Received: ?05/06/2023 0650 ? Pathologist: ? Kevin Bush MD ? Specimens: ?? A) - Left Breast ? B) - Left Breast Core Ultrasound Biopsy ? 05/12/2023 3:38 PM CDT [facility] LABORATORY-C ENTRAL LABORATORY Amendment 05/08/2023 - Amendment issued to incorporate ancillary studies. 05/09/2023 - Amendment issued to incorporate ancillary studies on part B. 05/12/2023 - Amendment issued to incorporate ancillary HER2 FISH studies. 05/12/2023 3:38 PM CDT [facility] LABORATORY-C ENTRAL LABORATORY Final Diagnosis A) AXILLA, [...] in fibrous tissue (see comment) ?? a. Bedrock grade: II of III; Shanice score: 6 [...] upon clinical request) 05/12/2023 3:38 PM CDT [facility]-C ENTRAL LABORATORY Amendment electronically signed by Etta [...] positive right breast carcinoma in 2020 (see [id number]). ??The current invasive carcinoma is morphologically similar [...] Dr. Cielo olmstead. 05/12/2023 3:38 PM CDT [facility] ENTRAL LABORATORY Clinical Information Patient with history of invasive ductal carcinoma of right breast ([id number]) with multiple positive right axillary lymph nodes. Treated with bilateral mastectomy. A) LEFT AXILLARY MASS, 12 mm B) LEFT AXILLARY MASS, 7 mm 3.5 cm apart 05/12/2023 3:38 PM CDT [facility] ENTRAL LABORATORY Gross Description A) Label: Patient's [...] hours. SREEDHAR 05/06/2023 ?? 05/12/2023 3:38 PM T [facility] Microscopic Description The final diagnosis is based on microscopic examination of appropriate sections of all specimens. A) Cores with green ink. B) Cores with black ink. 05/12/2023 3:38 PM T [facility] Cytogenetics Summary Cytogenetic testing has been ordered and will be reported separately. 05/12/2023 3:38 PM T [facility] SYNOPTIC REPORTING Breast Biomarker Reporting Template [...] developed and its performance characteristics determined by [employer]. ??This test incorporates minor modifications to protocol and validated by the [facility] Cytogenetics Laboratory and [facility] to yield equivocal or superior [...] Image Analysis: ?PgR 05/12/2023 3:38 PM CDT [facility] LABORATORY-C ENTRAL LABORATORY Additional Information Patients with [...] not result in eligibility currently). Interpreted at [facility], Central Laboratory - [address], [place] [address] 05/12/2023 3:38 PM CDT [facility] LABORATORY- ENTRAL LABORATORY Other (Left Breast) 05/05/2023 11:45 AM CDT 05/06/2023 6:50 AM CDT Specimen (specimen) (Left Breast Core Ultrasound Biopsy) 05/05/2023 11:47 AM CDT 05/06/2023 7:41 AM CDT Doctor Unknown PATHOLOGY/CYTOLOGY Performing Organization Address [facility] de Phone Number [facility] [address] [place] [address], [place] * CG HER2 BREAST (05/05/2023 11:45 AM CDT) Other (Left Breast) 05/05/2023 11:45 AM CDT 05/08/2023 11:04 AM CDT Doctor Unknown LABORATORY Performing Organization Address [facility] de Phone Number [facility] [address] [place] [address], [place] * CYTOGENETICS MALIGNANT TISSUE STUDIES (05/05/2023 11:45 AM CDT) RFR Breast cancer 05/12/2023 2:[address] [facility] LABORAT[facility] TEST & RESULT SUMMARY HER2 FISH Breast: See pathology report [id number]. See comments. 05/12/2023 2:23 PM CDT [facility] _ 05/12/2023 2:[address] [facility] LAB[facility] COMMENTS This record is used as an internal laboratory test designed for workflow purposes only. 05/12/2023 2:23 PM CDT [facility] SOURCE Left Breast (Paraffin Slides A1 2 uns) [id number] 05/12/2023 2:23 PM CDT [facility] NTROH LABORATORY Other (Left Breast) 05/05/2023 11:45 AM CDT 05/08/2023 11:04 AM CDT Doctor Unknown LABORATORY [facility] [address] [place] [address], * HOT BOX SPOTTER THIN PREP PAP SCREEN IMAGED (01/20/2018 1:30 PM SUGAR REPROCESS OPERATOR HEAD) Case Report Gynecologic Cytology Report ? Case: [id number] ? Authorizing Provider: ??Pat Cabrera MD ? Collected: ? 01/20/2018 1330 ? First Screen: ?Mariella Lynch ?Received: ?01/22/2018 1810 ? Specimen: ?HOT BOX SPOTTER ThinPrep Vial Screening, Cervical/Vaginal ? 01/30/2018 3:20 PM SUGAR REPROCESS OPERATOR HEAD [facility] LABORATORY ENTRAL LABORATORY INTERPRETATION/ RESULT NEGATIVE FOR INTRAEPITHELIAL LESION OR MALIGNANCY (NIL) (none) 01/30/2018 3:20 PM SUGAR REPROCESS OPERATOR HEAD [facility] IMEN ADEQUACY Satisfactory for evaluation No endocervical component seen 01/30/2018 3:20 PM SUGAR REPROCESS OPERATOR HEAD [facility] ENTROH LABORATORY HPV REQUEST HPV and PAP 01/30/2018 3:20 PM SUGAR REPROCESS OPERATOR HEAD [facility] ENTROH LABORATORY Automated Review Successful 01/30/2018 3:20 PM SUGAR REPROCESS OPERATOR HEAD [facility] ENTRAL LABORATORY Comment:Specimen processed s uccessfully by automated organizational development manager device, ThinPrep Imaging System, [employer] ANCILLARY TESTING HOT BOX SPOTTER HPV Ordered, Please see separate report 01/30/2018 3:20 PM SUGAR REPROCESS OPERATOR HEAD [facility] LABORATORY-C ENTRAL LABORATORY Note The pap test is a [...] lesions. Cytology is screened and interpreted at [facility], Central Laboratory - [address], [place] [address] and [facility] - [address]; [place] [address] and [facility] - [address]; [place] [address] and [facility] [address]; [place] [address] 01/30/2018 3:20 PM SUGAR REPROCESS OPERATOR HEAD [facility]- ENTRAL LABORATORY Other (Cervical/Vagina l) 01/20/2018 1:30 PM SUGAR REPROCESS OPERATOR HEAD 01/22/2018 6:10 PM SUGAR REPROCESS OPERATOR HEAD Pat Cabrera MD PATHOLOGY/CYTOLOGY [facility] [address] [place] [address], * (ABNORMAL) LIPID PANEL (03/04/2011 11:51 AM SUGAR REPROCESS OPERATOR HEAD) CHOLESTEROL,TOTAL 208(H) 110 - 199 mg/dL [facility] TRIGLYCERIDES 44 40 - 149 mg/dL [facility] HDL CHOLESTEROL 100 >40 mg/dL [facility] CHOL/HDL RATIO 2.08 <4.51 [facility] LDL CHOLESTEROL 99 <131 mg/dL [facility] PATIENT STATUS Fasting [facility] Blood specimen (specimen) BLOOD SPECIMEN / Unknown 03/04/2011 11:51 AM SUGAR REPROCESS OPERATOR HEAD 03/04/2011 11:45 AM SUGAR REPROCESS OPERATOR HEAD Koki Bran CNM CHEMISTRY [facility] INTERNAL ZIP [address] [address] from Last 3 Months or Most Recently [...] Code Status Discussion: Not Discussed Care Teams Singer And Unloader Relationship Specialty Start Date End Date Esvin Manzano MD [address] [place] [address] PCP - General Family Practice 05/14/23 Vicki Rawls MD [address] [address] Surgery - Oncology 06/29/20
--- NOTE | 2023-07-17 15:30 | PE_ITS ---
[facility] [address] [facility] [address] Phone:?[phone] Fax:?[phone] Referring Physician Information: Betsey Carlin M.D. [address] [facility] [address] Phone:?[phone] Fax:?[phone] Patient:?Nieves Ham D.O.B:?1965 Sex:?Female Phone:?[phone] [facility] MRN:?[id number] Exam Date:?07/17/2023 EXAM:?PET/CT EYES TO THIGHS, CANCER RESTAGING CLINICAL INFORMATION: Breast cancer restaging, assess response to therapy TECHNICAL INFORMATION: Helical acquisition of data was obtained from the orbits to the upper thighs with reconstruction of 3.75 mm thick images at 3.[address] data was used for attenuation correction. PET scanning was performed through the same anatomic range 60 minutes following administration of 13.03 mCi of 18-FDG delivered intravenously. The patient's glucose at the time of the injection was 104 mg/dL. PET, CT and PET/CT fusion images are interpreted using a computer viewing workstation. PET, CT and PET/CT fusion images were archived and saved in the patient's permanent medical record. COMPARISON: PET/CT 05/15/2023 INTERPRETATION: Head and Neck: Interval decrease in size and FDG avidity of the previously visualized right level 2 and left supraclavicular lymph nodes. The right level 2 lymph node measures approximately 4 mm in short access, previously measuring 9 mm with an SUV max of 1.59. The left supraclavicular lymph node measures 4 mm in short axis (series 202 image 59), previously measuring 5 mm and is without associated radiotracer avidity. No new or enlarging lymph nodes. There is physiologic uptake in the intracranial soft tissues. Chest: Background mediastinal blood pool activity with a mean SUV of 1.72. Interval decrease in size of a right upper lobe fissural nodule measuring 6 mm (series 202 image 100), previously measuring 11 mm, with an SUV max of 1.2. Interval decrease in size of a left upper lobe perihilar nodular density measuring 9 mm (series 202 image 96), previously measuring 15 mm. Minimal FDG avidity with an SUV max of 1.89 (reported previously 8.7). No new or enlarging lung nodules. A 5 mm pretracheal lymph node has slightly increased in size from the comparison exam when it measured 3 mm there is no associated FDG avidity. Several additional previously visualized mediastinal and hilar lymph nodes which have decreased in size and FDG avidity. For instance, a subcarinal lymph node measures 8 mm in short axis (series 202 image 102, previously measuring 13 mm, with an SUV max of 2.92 (reported previously at 7.2). Similar right upper lobe subpleural reticular opacities likely reflecting post radiation changes. No new or enlarging lung nodules. Small axillary lymph nodes are present which are not FDG avid. A previously visualized FDG avid lymph node in the left axillary region measures 5 mm, previously measuring 8 mm, with an SUV max 1.35 (reportedly previously 5.2). Adjacent biopsy clip is present. Postsurgical changes of bilateral mastectomy. Similar bandlike thickening in the right breast region with low level FDG avidity and an SUV max of 1.93, most likely reactive. Diffuse low level uptake in the esophagus with an SUV max of 5.59. Coronary artery atherosclerosis. Abdomen and Pelvis: Background liver parenchymal uptake with a mean SUV of 1.94. Interval decrease in size of a left adrenal gland nodule measuring 8 mm, previously measuring 15 mm, with an SUV max of 4.28 (reported previously at 9.0). Previously visualized implant along the anteroinferior aspect of the left hepatic lobe is not visualized on this exam. Decreased FDG avidity associated with the distal stomach. Peritoneal nodules in the right upper quadrant have decreased in size from the comparison exam and are no longer FDG avid. For instance a 6 mm nodule adjacent to the gastroduodenal junction (series 202 image 164), previously measuring 7 mm and previously FDG avid. A 4 mm nodule adjacent to the right hepatic lobe (series 202 image 166), previously measuring 6 mm with minimal low-level FDG avidity and an SUV max of 2.12). A few retroperitoneal nodules adjacent to the right kidney has also decreased in size and FDG avidity. For instance a 5 mm nodule (series 202 image 158) which previously measured 8 mm and is no longer FDG avid. Another nodule adjacent to the more inferior right kidney measures 4 mm (series 202 image 181), previously measuring 9 mm, with an SUV max 1.69. Small retroperitoneal and pelvic lymph nodes with minimal low-level FDG avidity, most likely reactive and not significantly changed from the comparison exam. There is physiologic excretion of radiotracer in the urine and bowel. Aortoiliac atherosclerosis. An IUD is present. Skeleton, Musculature, and Integument: Improving diffuse osseous metastasis. School Operations Manager lesions: Sclerotic lesion in the left humeral head measures 1.8 cm, similar to the comparison exam (series 202 image 63), with a SUV max of 4.29 (reported previously at 6.3). Sclerotic lesion involving the right anterolateral fourth rib with an SUV max of 1.58. Sclerotic lesion involving the left anterolateral fifth rib with an SUV max of 2.27 (previously reported 3.3). Sclerotic lesion involving the left T9 transverse process with an SUV max of 3.06 (previously reported 4.7). Sclerotic lesion involving the left L3 transverse process with minimal FDG avidity. Sclerotic lesion involving the left L5 vertebral body and pedicle with an SUV max of 3.04 (previously reported 7.1). Sclerotic lesions in the iliac wings. FDG avidity associated with the left iliac wing lesion with an SUV max of 7.55 (previously reported 7.5). Sclerotic lesion in the right femoral neck region with an SUV max of 4.05 (previously reported 6.7). Focal uptake in the right femur midshaft with an SUV max of 6.66 (previously 10.8). Mixed lytic and sclerotic lesion involving the sacrum with an SUV max of 3.99 (previously 7.3). Previously visualized scattered subcutaneous nodules with associated FDG avidity are also improved. A small focus of uptake in the left gluteal region with an SUV max of 2.62 (fused image 260). CONCLUSION: * Overall improving metastatic disease. * Scattered osseous metastasis with decreased FDG avidity. * Interval decreased size and FDG avidity of previously visualized lymphadenopathy in the lower neck and chest. * Interval decrease in size and FDG avidity of a few lung nodules. No new or enlarging lung nodules. * Interval decrease in size and FDG avidity of a left adrenal gland nodule and several peritoneal/retroperitoneal nodules. * Interval decreased FDG avidity of several scattered small subcutaneous nodules. * Interval decreased FDG avidity associated with the distal stomach. * Mild FDG avidity throughout the esophagus which can be seen with esophagitis. Electronically signed on 07/22/2023 9:53:00 AM by Paresh Stoner D.O
== END 2023-07-17 15:09 | disposition home or self-care (01) ==
LOC: RAD 15:09
PROVIDERS: PCP Family Medicine; Visit Provider Internal Medicine Hematology & Oncology
DX: C50.311 Malignant neoplasm of lower-inner quadrant of right female breast (principal); C79.51 Secondary malignant neoplasm of bone; R91.8 Other nonspecific abnormal finding of lung field; E27.9 Disorder of adrenal gland, unspecified
CPT/HCPCS: 78815; A9552

== ENCOUNTER 2023-10-23 14:42 | Outpatient (CLI) | payer OTHER, SELFPAY ==
--- OUTSIDE RECORDS SUMMARY | 2023-10-23 14:46 | XMS_ITS | Clinical Summary ---
Author Organization [facility] Address [place], [place] [address] Care Team Providers Care Grinding Machine Operator Name Role Phone Vicki Rawls MD Unavailable [phone] Esvin Manzano MD Primary Care Provider [phone] Allergies Active Allergy Reactions Criticality Noted Date [...] from 05/23/2020:Stage IB(cT2, cN0, cM0, G2, ER+, WA+, HER2-) - Signed by Vicki Rawls MD on 06/30/2020 Pathologic:Stage IIA(pT2, pN1a, cM0, G3, ER+, WA+, HER2-) - Signed by Monika Grubbs PA on 07/18/2020 Hypertension 06/20/2011 Vitamin D deficiency 03/07/2011 Genital warts 10/13/2009 Anxiety state, unspecified 10/13/2009 Immunizations Name Administration Dates Next Due Tdap 11/01/2008 Family History Medical History Relation Name Comments Hypertension Brother Hypertension Father Other Father parkinson's Cancer Maternal Aunt Heart Disease Maternal Grandfather NH (ag e 60s) Hypertension Mother Cancer-breast Other Mat GGM Hypertension Sister Relation Name Status Comments Brother Father Maternal Aunt Maternal Grandfather Mother Alive Other Mat GGM Sister Social History Tobacco Use Types Packs/Day Years Used Date Smoking Tobacco: Every Day Cigarettes 0.3 37.7 Started: 1985 Smokeless Tobacco: Never Comments:Working on [...] Outcome GA Total Labor Labor/2nd/3rd Weight Sex Type Anes PTL Kimmy A1 A5 Name Clin 998 Para 3.52 kg (7 lb 12 oz) M Vag Livin g CRIS Comments:INDUCED - PIT OCIN 000 Para 3.03 kg (6 lb 11 oz) M Vag Decea sed TOMMY Comments: OF SIDS - 6 MO 001 Para 2.98 kg (6 lb 9 oz) M CS-Un spec Rajni CABRERA Comments: LABOR 27 WKS 007 Para 2.81 kg (6 lb 3 oz) F Rajni mandie Last Filed Vital Signs Vital Sign Reading [...] this topic Medical Devices Implanted Type Area Casting Tester Device Identifier Shelf Expiration Date Model / Serial / Lot [id number] Alloderm Select Thick Perforated Implanted:Qty: 1 on 07/05/2020 by Eleazar Duran MD at [facility] Explanted:at [facility] (Quantity not on file) Right: Breast [employer] 10/24/2021 [id number] / [id number] / [id number] Alloderm Select Thick Perforated Implanted:Qty: 1 on 07/05/2020 by Eleazar Duran MD at [facility] Explanted:at [facility] (Quantity not on file) Left: Breast [employer] 10/24/2021 [id number] / [id number] / [id number] tissue 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 Water 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 Breast [place] Cpx 4 Plus Smooth 350cc Implanted:Qty: 1 on 07/05/2020 by Eleazar Duran MD at [facility] Explanted:at [facility] (Quantity not on file) Left: Breast [employer] 02/13/2024 [id number] / [id number] Description:TISSUE CUSTOMER SUPPORT ASSOCIATE BREAST [place] CPX 4 PLUS SMOOTH 350CC [id number] [id number] Implanted:Qty: 1 on 07/05/2020 by Eleazar Duran MD at [facility] Explanted:at [facility] (Quantity not on file) Right: Breast [employer] 02/13/2024 [id number] / [id number] Description:BREAST IMPLANT C PX4 PLUS SM TE MH 350CC Procedures Procedure Name Priority Date/Time Associated Diagnosis Comments TORCH HEATER THIN PREP PAP SCREEN IMAGED Routine 01/20/2018 1:30 PM CLOTH BALER LIPID PANEL Routine 03/04/2011 11:51 AM CLOTH BALER Routine general medical examination at a health care facility from Last 3 Months or Most Recently Relevant to Health Maintenance Results * TORCH HEATER THIN PREP PAP SCREEN IMAGED (01/20/2018 1:30 PM CLOTH BALER) Case Report Gynecologic Cytology Report ? Case: [id number] ? Authorizing Provider: ??Pat Cabrera MD ? Collected: ? 01/20/2018 1330 ? First Screen: ?Mariella Lynch ?Received: ?01/22/2018 1810 ? Specimen: ?TORCH HEATER ThinPrep Vial Screening, Cervical/Vaginal ? 01/30/2018 3:20 PM CLOTH BALER [facility]-C ENTRAL LABORATORY INTERPRETATION/ RESULT NEGATIVE FOR INTRAEPITHELIAL LESION OR MALIGNANCY (NIL) (none) 01/30/2018 3:20 PM CLOTH BALER [employer] ENTRAL LABORATORY IMEN ADEQUACY Satisfactory for evaluation No endocervical component seen 01/30/2018 3:20 PM CLOTH BALER [facility]-C ENTRAL LABORATORY HPV REQUEST HPV and PAP 01/30/2018 3:20 PM [facility] ENTRAL LABORATORY Automated Review Successful 01/30/2018 3:20 PM [facility] Comment:Specimen processed s uccessfully by automated conveyor tender device, ThinPrep Imaging System, [employer] ANCILLARY TESTING TORCH HEATER HPV Ordered, Please see separate report 01/30/2018 3:20 PM CLOTH BALER [facility]-C ENTRAL LABORATORY Note The pap test [...] lesions. Cytology is screened and interpreted at [facility] - [address], [place] [address] and [facility] - [address]; [place] [address] and [facility] - [address]; [place] [address] and [facility] [address]; [place] [address] 01/30/2018 3:20 PM CLOTH BALER [facility]-C ENTRWA LABORATORY Other (Cervical/Vagina l) 01/20/2018 1:30 PM CLOTH BALER 01/22/2018 6:10 PM CLOTH BALER Pat Cabrera MD PATHOLOGY/CYTOLOGY [facility] [address] [place] [address], * (ABNORMAL) LIPID PANEL (03/04/2011 11:51 AM CLOTH BALER) CHOLESTEROL,TOTAL 208(H) 110 - 199 mg/dL [facility] TRIGLYCERIDES 44 40 - 149 mg/dL [facility] HDL CHOLESTEROL 100 >40 mg/dL [facility] CHOL/HDL RATIO 2.08 <4.51 [facility] LDL CHOLESTEROL 99 <131 mg/dL [facility] PATIENT STATUS Fasting [facility] Blood specimen (specimen) BLOOD SPECIMEN / Unknown 03/04/2011 11:51 AM CLOTH BALER 03/04/2011 11:45 AM CLOTH BALER Koki Bran CNM CHEMISTRY [facility] INTERNAL ZIP [address] [place] [address] from Last 3 Months or Most Recently [...] Code Status Discussion: Not Discussed Care Teams Grinding Machine Operator Relationship Specialty Start Date End Date Esvin Manzano MD [address] [place] [address] PCP - General Family Practice 05/14/23 Vicki Rawls MD Surgery - Oncology 06/29/20
--- NOTE | 2023-10-23 15:00 | PE_ITS ---
[facility] [address] [facility] [address] Phone:?[phone] Fax:?[phone] Referring Physician Information: Betsey Carlin M.D. [address] [facility] [address] Phone:?[phone] Fax:?[phone] Patient:Tammie Ham D.O.B:?1965 Sex:?Female Phone:?[phone] [facility] MRN:[id number] Exam Date:?10/23/2023 EXAM: PET/CT EYES TO THIGHS, CANCER RESTAGING CLINICAL INFORMATION: Breast cancer, restaging. TECHNICAL INFORMATION: Helical acquisition of data was obtained from the orbits to the upper thighs with reconstruction of 3.75 mm thick images at 3.[address] data was used for attenuation correction. PET scanning was performed through the same anatomic range 55 minutes following administration of 12.7 mCi of 18-FDG delivered intravenously. The patient's glucose at the time of the injection was 98 mg/dL. PET, CT and PET/CT fusion images are interpreted using a computer viewing workstation. PET, CT and PET/CT fusion images were archived and saved in the patient's permanent medical record. COMPARISON: PET-CT from 07/17/2023 and prior studies. INTERPRETATION: Head and Neck: There are no abnormal hypermetabolic foci within the head or neck. No cervical lymphadenopathy in terms of size, morphology, or metabolic rate. (Prior supraclavicular divya metastases remain nonenlarged and metabolically dormant in response to therapy.) There is physiologic uptake in the intracranial soft tissues. Chest: There are no abnormal hypermetabolic foci within the chest. Stable 6 mm right upper lobe fissural nodule (Se 2 Im 99) has no associated hypermetabolism. No new, enlarging, or increasingly avid nodules or masses on this free breathing exam. No intrathoracic lymphadenopathy at this time, in terms of size, morphology, or metabolic rate. (Prior mediastinal and hilar divya metastases remain nonenlarged and metabolically dormant in response to therapy.) As before, the patient is status post bilateral mastectomy and axillary dissection/biopsy. Postoperative appearance is stable and as expected, including benign postsurgical granulation that shows stable, low-level FDG uptake (SUVmax = 1.95). Background mediastinal blood pool uptake has a maximum SUV of 2.14. Abdomen and Pelvis: Known left adrenal metastasis remains shrunken and metabolically dormant in response to therapy, measuring 8 mm with a maximum SUV of 2.12, previously 4.28. A few previously hypermetabolic peritoneal and retroperitoneal nodules remain shrunken and metabolically dormant in response to therapy. For instance: ...a) right perirenal nodule (Se 2 Im 154) is stable at 5 mm with no associated hypermetabolism. ...b) gastroduodenal/perihepatic nodule (Se 2 Im 164) measures 3 mm, previously 6 mm, with no associated hypermetabolism as before. No new, enlarging, or increasingly abnormal sites of disease within the soft tissues of the abdomen or pelvis. Aortic atherosclerosis and IUD redemonstrated. Background hepatic parenchymal uptake has a maximum SUV of 2.69. There is physiologic excretion of radiotracer in the urine and bowel. Skeleton, Musculature, and Integument: Widespread skeletal metastases show partial response to therapy that is stable to minimally improved since June 2023. Index lesions include: ...a) left humeral head lesion (Se 2 Im 64) has a maximum SUV of 4.28, previously 4.29. ...b) right fourth rib lesion (Se 2 Im 101) has a maximum SUV of 1.2, previously 1.58. ...c) left fifth rib lesion (Se 2 Im 119) has a maximum SUV of 1.81, previously 2.27. ...d) left iliac wing lesion (Se 2 Im 240) has a maximum SUV of 4.9, previously 7.55. ...e) right femoral neck lesion (Se 2 Im 271) has a maximum SUV of 4.86, previously 4.05. No new or enlarging lesions. No significant increase in any intralesional FDG uptake, allowing for the usual variation between scans. CONCLUSION: 1. Overall stable metastatic burden when compared to the PET-CT from June 2023. No new, enlarging, or worsening sites of disease to suggest progression. 2. The patient's widespread skeletal metastases show partial response to therapy that is stable to minimally improved since June 2023. Index lesions provided above. 3. Previously detected (cervical and intrathoracic) divya metastases, peritoneal/retroperitoneal nodules, and left adrenal metastasis remain shrunken and metabolically dormant in response to therapy. Electronically signed on 10/24/2023 3:19:00 PM by Ashish Mercedes M.D.
--- NOTE | 2023-12-02 11:56 | W.ED.EKGINT ---
EKG Interpretation EKG Data Attestation: I personally reviewed and interpreted this ECG as follows: Date of EKG Tracin10/29/23 EKG interpretation date: 12/02/23 EKG interpretation time: 11:56 Prior EKG tracings: available for review Interpretation: EKG interpretation is done for above EKG, indication was chemotherapeutic monitoring. Compared to previous EKG from 09/29/2023. Rhythm is sinus, ventricular rate of 74, no acute ST wave changes are noted, in comparison to old EKG. QRS is decreased slightly to the 88 milliseconds, QT has increased to 426 from 406, QTC is slightly lengthened from 456-472. Assess: Normal sinus rhythm, with a ventricular rate of 74, no acute ST wave changes, QT is slightly progressed as has QTC.
== END 2023-10-23 14:43 | disposition home or self-care (01) ==
LOC: RAD 14:43
PROVIDERS: PCP Family Medicine; Visit Provider Internal Medicine Hematology & Oncology
DX: C50.311 Malignant neoplasm of lower-inner quadrant of right female breast (principal); C79.51 Secondary malignant neoplasm of bone
CPT/HCPCS: 78815; A9552

== ENCOUNTER 2023-11-26 13:15 | Outpatient (RCR) | payer BC, OTHER, SELFPAY ==
[2023-06-16 13:54] LABS: Basophils Percent Auto 0.5 % (0.0-3.0); Hematocrit 32.3 % (33.0-51.0); Hemoglobin* 10.9 gm/dL (12.0-16.0); Immature Granulocytes Pct Auto 0.3 %; Mean Corpuscular HGB Conc 34 gm/dL (32-36); Mean Corpuscular Hemoglobin 33 pg (26-34); Mean Corpuscular Volume 99 fL (80-100); Monocytes Percent Auto 2.8 % (0.0-11.0); Neutrophils Percent Auto 72.4 % (42.0-72.0); Platelet Count* 231 K/uL (140-440); RDW Coefficient of Variation % 13.2 % (11.5-15.5); Red Blood Count 3.26 m/uL (4.00-5.20); White Blood Count* 3.91 K/uL (4.50-11.00)
[2023-06-16 14:18] LABS: Albumin* 4.5 g/dL (3.3-5.0); Chloride* 101 mmol/L (96-114); Potassium* 3.3 mmol/L (3.6-5.1); Sodium* 136 mmol/L (135-149)
[2023-06-16 14:21] LABS: Alanine Aminotransferase* 13 U/L (4-35); Alkaline Phosphatase* 113 U/L (40-150); Anion Gap 6 mEq/L (7-15); Aspartate Amino Transferase* 22 U/L (12-35); Bilirubin Total* 0.6 mg/dL (0.1-1.5); Blood Urea Nitrogen* 17 mg/dL (7-30); Calcium* 9.3 mg/dL (8.4-10.6); Carbon Dioxide* 29 mmol/L (20-32); Creatinine* 0.6 mg/dL (0.5-1.5); Estimated Glomerular Filt Rate 105 ml/min; Total Protein* 7.5 g/dL (6.0-8.3)
[2023-06-16 14:32] LABS: Glucose* 104 mg/dL (60-115)
[2023-06-16 14:41] LABS: Slide Review Reflex Yes
[2023-06-16 14:43] LABS: Slide Review Acceptable Review (Acceptable)
[2023-06-16 16:42] LABS: Magnesium* 1.5 mg/dL (1.5-2.6)
[2023-06-20 13:37] VITALS: BP 106/71; PULSE 77; RESP 16; TEMP 36.4; O2SAT 96
[2023-06-20] MEDS: FULVESTRANT 500MG KIT 500 MG IM (14:13)
--- NOTE | 2023-06-20 14:24 | ONC.NURNOTE ---
Pt here for week 4 Faslodex. She notes that her ankle swelling from earlier this week is gone after she took one of her mom's water pills. Pt sched for heart echo 06/22 to f/u her Week 2 of Carlossqzayra abnormal EKG showing atrial hypertrophy/changes from her baseline EKG. Reinforced pt should not take medications that are not prescribed to her. She notes that her blood pressure is lower than usual today. 100's/60's vs previous 140's/70's; reviewed that she is likely dehydrated from the water pill and high caffeine intake. Encouraged pt to drink more non-caffeinated beverages. Plan to review Echo results with Dr. Carlin to determine how to proceed with Carlossharitha.
[2023-06-30 14:00] LABS: Basophils Percent Auto 1.2 % (0.0-3.0); Eosinophils Percent Auto 0.2 % (0.0-7.0); Hemoglobin* 11.4 gm/dL (12.0-16.0); Immature Granulocytes Pct Auto 0.2 %; Lymphocytes Percent Auto 24.6 % (20-44); Mean Corpuscular HGB Conc 35 gm/dL (32-36); Mean Corpuscular Hemoglobin 34 pg (26-34); Mean Corpuscular Volume 99 fL (80-100); Monocytes Percent Auto 6.6 % (0.0-11.0); Neutrophils Percent Auto 67.2 % (42.0-72.0); Platelet Count* 557 K/uL (140-440); RDW Coefficient of Variation % 15.2 % (11.5-15.5); Red Blood Count 3.35 m/uL (4.00-5.20); White Blood Count* 4.22 K/uL (4.50-11.00)
[2023-06-30 14:03] LABS: Slide Review Reflex No
[2023-06-30 14:19] LABS: Albumin* 4.8 g/dL (3.3-5.0); Chloride* 96 mmol/L (96-114)
[2023-06-30 14:20] LABS: Potassium* 3.2 mmol/L (3.6-5.1); Sodium* 133 mmol/L (135-149)
[2023-06-30 14:22] LABS: Anion Gap 9 mEq/L (7-15); Aspartate Amino Transferase* 28 U/L (12-35); Bilirubin Total* 1.2 mg/dL (0.1-1.5); Carbon Dioxide* 28 mmol/L (20-32); Creatinine* 1.4 mg/dL (0.5-1.5); Estimated Glomerular Filt Rate 44 ml/min; Total Protein* 7.8 g/dL (6.0-8.3)
[2023-06-30 14:23] LABS: Alanine Aminotransferase* 18 U/L (4-35); Alkaline Phosphatase* 120 U/L (40-150); Blood Urea Nitrogen* 24 mg/dL (7-30); Calcium* 9.5 mg/dL (8.4-10.6); Glucose* 121 mg/dL (60-115)
[2023-06-30 19:04] LABS: Magnesium* 1.6 mg/dL (1.5-2.6)
--- NOTE | 2023-07-02 10:35 | ONC.NURNOTE ---
Plan of Care: 1. PA for Shaunzayra approved with new insurance through 06/29/2024. Co-pay is $0. [facility] will call patient to arrange shipment. 2. Orders for PET/CT and supporting documents faxed to [facility] for 07/16 PET/CT. 3. Patient will have labs, Faslodex and repeat EKG on 07/17 4. Follow up with Dr. Carlin on 07/21 to review scan and discuss treatment plan.
--- NOTE | 2023-07-02 11:10 | URNOTE ---
[employer] ([id number]) has been approved 06/27/2023--06/26/2024. Auth #[id number]
--- NOTE | 2023-07-04 15:15 | ONC.NURNOTE ---
Pt requested refill on Compazine 5mg BID PRN N/V. She has 4 pills left and uses 2x/day to adequately manage n/v; she will run out before Friday. [employer] contacted Ashley Benavides PA-C to refill; she will send in a refill this evening.
[2023-07-18 13:30] VITALS: BP 117/76; PULSE 76; RESP 16; TEMP 36.1; O2SAT 99
[2023-07-18 13:31] LABS: Basophils Percent Auto 2.2 % (0.0-3.0); Eosinophils Percent Auto 0.9 % (0.0-7.0); Hematocrit 29.6 % (33.0-51.0); Hemoglobin* 10.3 gm/dL (12.0-16.0); Immature Granulocytes Pct Auto 0.9 %; Lymphocytes Percent Auto 27.6 % (20-44); Mean Corpuscular HGB Conc 35 gm/dL (32-36); Mean Corpuscular Hemoglobin 37 pg (26-34); Mean Corpuscular Volume 105 fL (80-100); Monocytes Percent Auto 9.5 % (0.0-11.0); Neutrophils Percent Auto 58.9 % (42.0-72.0); Platelet Count* 216 K/uL (140-440); RDW Coefficient of Variation % 17.1 % (11.5-15.5); Red Blood Count 2.82 m/uL (4.00-5.20); White Blood Count* 2.32 K/uL (4.50-11.00)
[2023-07-18 13:33] LABS: Slide Review Reflex No
[2023-07-18 13:44] LABS: Albumin* 4.9 g/dL (3.3-5.0); Chloride* 102 mmol/L (96-114); Sodium* 135 mmol/L (135-149)
[2023-07-18 13:46] LABS: Est. Creatinine Clearance* 61.09; Estimated Glomerular Filt Rate 66 ml/min
[2023-07-18 13:47] LABS: Alanine Aminotransferase* 13 U/L (4-35); Alkaline Phosphatase* 98 U/L (40-150); Anion Gap 8 mEq/L (7-15); Aspartate Amino Transferase* 20 U/L (12-35); Bilirubin Total* 0.7 mg/dL (0.1-1.5); Blood Urea Nitrogen* 33 mg/dL (7-30); Calcium* 9.4 mg/dL (8.4-10.6); Carbon Dioxide* 25 mmol/L (20-32); Glucose* 116 mg/dL (60-115)
[2023-07-18 13:48] LABS: Magnesium* 1.6 mg/dL (1.5-2.6)
[2023-07-18] MEDS: FULVESTRANT 500MG KIT 500 MG IM (14:25)
--- NOTE | 2023-07-18 14:42 | ONC.NURNOTE ---
I met with patient in the infusion center. Overall, patient is doing well. She continues to have nausea, fatigue and +1 edema in her bilateral lower extremities. She denies shortness of breath. She is currently in her off week of Ribociclib. We discussed her lab results. Patient informed that her ANC is 1.4. She denies any signs of infection. We reviewed neutropenic precautions. Patient has follow up with Dr. Carlin 07/21.
--- NOTE | 2023-07-18 14:50 | ONC.NURNOTE ---
Nieves states daily episode of n/v/.d.. some ankle swelling. She saw Kylah today and is seeing Dr. Carlin friday.
--- NOTE | 2023-07-22 12:57 | W.ED.EKGINT ---
EKG Interpretation EKG Data Date of EKG Tracin07/18/23 EKG interpretation date: 07/22/23 EKG interpretation time: 12:57 Prior EKG tracings: available for review Interpretation: EKG shows normal sinus rhythm, with a ventricular rate of 71. Pr QRS QT AK intervals and QRS intervals are all normal her large are complexes are noted laterally, likely a reflection of lead placement. Assessment: Normal EKG with no appreciable changes. Large are complexes are likely due to lead placement.
--- NOTE | 2023-07-23 10:20 | URNOTE ---
Addendum entered by Marie Isabel RN 08/18/23 16:05: This is for Zometa ([id number]) Original Note: Prior auth is not required per [place]. ref #[id number]
--- NOTE | 2023-07-25 11:26 | ONC.NURNOTE ---
Received fax from [facility] confirming dose change for Kisqali. Nurse Quality called and confirmed via Dr. Carlin's visit note from 07/21 change to Kisqali 600mg once daily 7 days on/ 7 days off in a 28 day period, due to EKG and ANC issues. Sameera, pharmacist verbalizes confirmation. p: f:
[2023-07-25 13:55] VITALS: BP 116/75; PULSE 78; RESP 17; TEMP 36.6; O2SAT 99
[2023-07-25] MEDS: ZOLEDRONIC ACID 4 MG in 0.9 % SODIUM CHLORIDE 100 ml 100 ML 420 MG IVPB (14:31)
[2023-08-21 14:14] LABS: Basophils Absolute Auto 0.03 K/uL (0.00-0.30); Basophils Percent Auto 0.6 % (0.0-3.0); Eosinophils Absolute Auto 0.09 K/uL (0.00-0.50); Eosinophils Percent Auto 1.7 % (0.0-7.0); Hematocrit 31.1 % (33.0-51.0); Hemoglobin* 10.9 gm/dL (12.0-16.0); Immature Granulocytes Abs Auto 0.01 K/uL (0.00-0.30); Immature Granulocytes Pct Auto 0.2 %; Lymphocytes Percent Auto 18.1 % (20-44); Mean Corpuscular HGB Conc 35 gm/dL (32-36); Mean Corpuscular Hemoglobin 38 pg (26-34); Mean Corpuscular Volume 110 fL (80-100); Monocytes Percent Auto 15.4 % (0.0-11.0); Neutrophils Absolute Auto 3.32 K/uL (1.7-7.0); Platelet Count* 261 K/uL (140-440); RDW Coefficient of Variation % 15.5 % (11.5-15.5); Red Blood Count 2.84 m/uL (4.00-5.20); White Blood Count* 5.19 K/uL (4.50-11.00)
[2023-08-21 14:23] LABS: Slide Review Reflex No
[2023-08-21 14:32] LABS: Albumin* 5.1 g/dL (3.3-5.0); Chloride* 97 mmol/L (96-114); Potassium* 3.1 mmol/L (3.6-5.1); Sodium* 135 mmol/L (135-149)
[2023-08-21 14:35] LABS: Alanine Aminotransferase* 13 U/L (4-35); Alkaline Phosphatase* 117 U/L (40-150); Anion Gap 10 mEq/L (7-15); Aspartate Amino Transferase* 23 U/L (12-35); Bilirubin Total* 1.1 mg/dL (0.1-1.5); Calcium* 8.7 mg/dL (8.4-10.6); Carbon Dioxide* 28 mmol/L (20-32); Creatinine* 1.3 mg/dL (0.5-1.5); Est. Creatinine Clearance* 46.43; Estimated Glomerular Filt Rate 48 ml/min; Glucose* 115 mg/dL (60-115); Total Protein* 7.8 g/dL (6.0-8.3)
[2023-08-21 14:51] LABS: Blood Urea Nitrogen* 21 mg/dL (7-30)
[2023-08-21] MEDS: FULVESTRANT 500MG KIT 500 MG IM (15:45)
--- NOTE | 2023-08-21 16:33 | ONC.NURNOTE ---
I left a message for patient regarding her EKG results. Patient informed that the computer read her QT interval as prolonged. ЕКАТЕРИНА Grimes manually counted the interval and it was WNL. As long as patient is asymptomatic, she can continue ribociclib. She initiated cycle 4 on 08/18 taking 600 mg daily one week on and one week off. Our recommendation is to recheck EKG tomorrow morning and review results with Ashley Benavides. Patient to return call to [facility] to schedule.
[2023-08-22 11:30] VITALS: BP 121/76; PULSE 78; RESP 18; O2SAT 97
--- NOTE | 2023-08-22 15:10 | ONC.NURNOTE ---
Pt here today for repeat EKG. Results showed changes. Camelia Romero APRN reviewed with Dr. Rayne Mayers in ED; no acute findings. Reviewed with Ashley Benavides PA-C. Pt to continue Ribociclib, begin increased dose of oral KCl and come back Mon 08/24 for repeat labs/EKG. Pt verbalizes understanding of this plan; she confirms she picked up her new prescription of KCl 20mEq BID and will begin it this evening.
[2023-08-25 15:26] LABS: Chloride* 86 mmol/L (96-114); Sodium* 127 mmol/L (135-149)
[2023-08-25 15:29] LABS: Anion Gap 13 mEq/L (7-15); Carbon Dioxide* 28 mmol/L (20-32); Creatinine* 1.5 mg/dL (0.5-1.5); Est. Creatinine Clearance* 40.24; Estimated Glomerular Filt Rate 40 ml/min
[2023-08-25 15:30] LABS: Blood Urea Nitrogen* 22 mg/dL (7-30); Glucose* 126 mg/dL (60-115); Magnesium* 1.7 mg/dL (1.5-2.6)
--- NOTE | 2023-08-25 16:40 | ONC.NURNOTE ---
Call to patient to discuss lab and EKG results. I had to leave patient a message. Patient informed that her electrolytes are abnormal, Na 127 and K+ 3.0. Patient instructed of the importance of taking her KCL 20 meq twice daily as directed. Patient instructed to report to clinic tomorrow at 8AM for fluids and KCL IV replacement and EKG recheck as her electrolyte abnormality may be impacting her EKG. Patient is on her off week of Ribociclib. Plan will be to recheck BMP on Friday.
[2023-08-26 08:02] VITALS: BP 122/75; PULSE 73; RESP 16; TEMP 36.9; O2SAT 91
[2023-08-26] MEDS: 0.9 % SODIUM CH + KCL 20 mEq/L 1,000 ML 500 ML IV (08:22)
--- NOTE | 2023-08-26 11:49 | W.ED.EKGINT ---
EKG Interpretation EKG Data Date of EKG Tracin09/21/23 EKG interpretation date: 08/26/23 EKG interpretation time: 11:51 Prior EKG tracings: available for review Interpretation: Interpretation is done, indication was monitoring, for chemotherapeutic drugs. Rhythm is sinus, with occasional PVCs noted. No acute ST wave changes, ventricular rate was 77. QT interval is 432 milliseconds, QTC baz is 488 mary sec. in comparison from EKG from 08/21/2023, QT is improved also QTC.
[2023-08-29 13:23] VITALS: BP 119/73; PULSE 82; RESP 16; TEMP 36.6; O2SAT 95
[2023-08-29 14:40] LABS: Anion Gap 12 mEq/L (7-15); Carbon Dioxide* 29 mmol/L (20-32); Chloride* 98 mmol/L (96-114); Glucose* 115 mg/dL (60-115); Potassium* 3.3 mmol/L (3.6-5.1); Sodium* 139 mmol/L (135-149)
[2023-08-29 14:53] LABS: Blood Urea Nitrogen* 23 mg/dL (7-30); Creatinine* 1.2 mg/dL (0.5-1.5); Estimated Glomerular Filt Rate 53 ml/min
--- NOTE | 2023-08-29 15:37 | ONC.NURNOTE ---
Pt here for EKG and repeat BMP. O2 sats initally 85%, increased to 88% with deep breathing, then after a productive cough O2 sats increased to 95-97%. Pt report she has been very tired last couple of days. Denies fever. Sodium level came back 139, and potassium 3.3. Inclusion Manager spoke to Ashley Benavides PA-C regarding potassium level and informed her that pt has only been taking potassium 20meq daily, not BID. Per Ashley, pt does not need to stay for IV potassium replacement today, but does need to take the potassium as prescribed. Ashley also encouraged pt to have an oximeter at home and to call [facility] if O2 sats are below 92%. Pt scheduled to return on 09/02/23 for BMP recheck and EKG. Pt verbalized understanding. Message sent to Dr. Manzano from Kylah RN regarding respiratory status and he placed a prescription for doxycycline BID for pt.
[2023-08-29 16:03] LABS: Calcium* 10.1 mg/dL (8.4-10.6)
--- NOTE | 2023-09-01 16:04 | ONC.NURNOTE ---
Reviewed last EKG from 08/28 with with Ashley Benavides PA-C. QT interval improved. If EKG and labs are stable tomorrow, the plan will be to start Ribociclib at 400 mg 3 weeks on and 1 week off. We will repeat labs and EKG in one week.
[2023-09-02 08:41] LABS: Chloride* 102 mmol/L (96-114); Potassium* 4.2 mmol/L (3.6-5.1); Sodium* 137 mmol/L (135-149)
[2023-09-02 08:44] LABS: Anion Gap 11 mEq/L (7-15); Blood Urea Nitrogen* 21 mg/dL (7-30); Carbon Dioxide* 24 mmol/L (20-32); Creatinine* 1.1 mg/dL (0.5-1.5); Est. Creatinine Clearance* 54.87; Estimated Glomerular Filt Rate 59 ml/min
[2023-09-02 08:45] LABS: Calcium* 9.6 mg/dL (8.4-10.6); Glucose* 103 mg/dL (60-115)
--- NOTE | 2023-09-02 08:52 | PC.NURSE ---
Pt present at [facility] for labs. All improved and within normal range. Pt given instruction to restart Ribociclib at 400 mg dose - 3 weeks on, 1 week off - per [facility] Montero note. Pt verbalized understanding. She will return next week for labs and EKG.
[2023-09-09 09:13] LABS: Chloride* 98 mmol/L (96-114)
[2023-09-09 09:14] LABS: Potassium* 3.6 mmol/L (3.6-5.1); Sodium* 137 mmol/L (135-149)
[2023-09-09 09:16] LABS: Est. Creatinine Clearance* 60.36; Estimated Glomerular Filt Rate 66 ml/min
[2023-09-09 09:17] LABS: Anion Gap 11 mEq/L (7-15); Blood Urea Nitrogen* 22 mg/dL (7-30); Calcium* 9.8 mg/dL (8.4-10.6); Carbon Dioxide* 28 mmol/L (20-32); Glucose* 130 mg/dL (60-115)
[2023-09-09 09:30] VITALS: BP 122/80; PULSE 81; RESP 14; TEMP 36.1
[2023-09-09 09:31] VITALS: BP 110/74; PULSE 79
--- NOTE | 2023-09-09 10:37 | ONC.NURNOTE ---
Addendum entered by Pat Esteves RN 09/09/23 10:43: iNeves gardner finished antibiotic for her resp/ cough . States no longer coughing and fells better. Original Note: Reviewed EKG and Labs with Camelia Romero APRN. Pt to continue po chemo meds and follow up Sep.28 with Labs, EKG. MD visit here. Pt states some nausea and emesis. states has meds to help. states occ diarrhea. no more than 1-2 a day.
--- NOTE | 2023-09-16 09:07 | W.ED.EKGINT ---
EKG Interpretation EKG Data Date of EKG Tracin08/29/23 EKG interpretation date: 09/16/23 EKG interpretation time: 09:08 Prior EKG tracings: available for review Interpretation: EKG is reviewed from 08/29/2023. Indication for review his chemotherapeutic treatment. Patient remains in sinus rhythm, with a ventricular rate of 75. Mild ST wave abnormalities persist across the precordial leads. QT intervals 424, QTC is 473. QRS is 90 milliseconds Impression: In comparison to EKG from 08/26/2023, QT and QTC have markedly decreased. QRS is also decreased mild ST wave abnormalities have persistent patient remains in sinus rhythm.
--- NOTE | 2023-09-16 09:12 | W.ED.EKGINT ---
EKG Interpretation EKG Data Attestation: I personally reviewed and interpreted this ECG as follows: Date of EKG Tracin09/02/23 EKG interpretation date: 09/16/23 EKG interpretation time: 09:13 Prior EKG tracings: available for review Interpretation: EKG interpretation is done, indication is chemotherapeutic treatment. Patient is in sinus rhythm, with a ventricular rate of 74, QRS interval is 94, QT is 392, QTC is 435. Mild ST wave abnormalities appear across precordial leads. These were previously seen on EKG 08/29/2023. Impression: Normal sinus rhythm with continued improvement of QT/QTC from previous. Mild EKG abnormalities of ST wave persist from previous.
--- NOTE | 2023-09-16 09:16 | W.ED.EKGINT ---
EKG Interpretation EKG Data Attestation: I personally reviewed and interpreted this ECG as follows: Date of EKG Tracin09/09/23 EKG interpretation date: 09/16/23 EKG interpretation time: 09:16 Prior EKG tracings: available for review Interpretation: EKG interpretation done for indication of chemotherapeutic treatment. Patient remains in sinus rhythm with a ventricular rate of 79. QT interval has lengthen to 422/QTC as lengthen to 483 mary sec. Q-waves with inversion of P waves are noted now in leads 3 and AVF. Impression: Abnormal EKG, with lengthening of QT and QTC, rhythm remained sinus. New Q-waves notable in leads 3 and AVF. This may be due to lead placement, repeat EKG with attention to lead placement may be helpful. If clinical suspicion of other abnormality is suggested, perhaps an echo would be helpful.
[2023-09-29 14:30] LABS: Calcium* 9.7 mg/dL (8.4-10.6); Creatinine* 1.1 mg/dL (0.5-1.5); Est. Creatinine Clearance* 54.87; Estimated Glomerular Filt Rate 59 ml/min
[2023-09-29] MEDS: FULVESTRANT 500MG KIT 500 MG IM (15:29)
[2023-09-29 15:30] LABS: Albumin* 5.1 g/dL (3.3-5.0); Chloride* 97 mmol/L (96-114); Sodium* 134 mmol/L (135-149)
[2023-09-29 15:31] LABS: Basophils Percent Auto 1.1 % (0.0-3.0); Eosinophils Percent Auto 0.7 % (0.0-7.0); Hematocrit 30.6 % (33.0-51.0); Hemoglobin* 10.4 gm/dL (12.0-16.0); Immature Granulocytes Pct Auto 0.4 %; Lymphocytes Percent Auto 22.8 % (20-44); Mean Corpuscular HGB Conc 34 gm/dL (32-36); Mean Corpuscular Hemoglobin 39 pg (26-34); Mean Corpuscular Volume 115 fL (80-100); Monocytes Percent Auto 12.5 % (0.0-11.0); Neutrophils Percent Auto 62.5 % (42.0-72.0); Platelet Count* 200 K/uL (140-440); Potassium* 3.5 mmol/L (3.6-5.1); RDW Coefficient of Variation % 13.3 % (11.5-15.5); Red Blood Count 2.66 m/uL (4.00-5.20); White Blood Count* 2.81 K/uL (4.50-11.00)
[2023-09-29 15:33] LABS: Alanine Aminotransferase* 15 U/L (4-35); Alkaline Phosphatase* 84 U/L (40-150); Anion Gap 10 mEq/L (7-15); Aspartate Amino Transferase* 28 U/L (12-35); Bilirubin Total* 0.9 mg/dL (0.1-1.5); Blood Urea Nitrogen* 22 mg/dL (7-30); Carbon Dioxide* 27 mmol/L (20-32); Creatinine* 1.1 mg/dL (0.5-1.5); Est. Creatinine Clearance* 54.87; Estimated Glomerular Filt Rate 59 ml/min; Glucose* 106 mg/dL (60-115)
[2023-09-29 15:34] LABS: Calcium* 9.6 mg/dL (8.4-10.6)
[2023-09-29 15:53] LABS: Slide Review Reflex No
--- NOTE | 2023-09-30 13:03 | W.ED.EKGINT ---
EKG Interpretation EKG Data Date of EKG Tracin09/29/23 EKG interpretation date: 09/30/23 Prior EKG tracings: available for review Interpretation: EKG is reviewed, from above date. Rhythm is sinus, ventricular rate at 76, QRS is 94 milliseconds. QT interval is 406. QTC is 456. In comparison to EKG from 09/02/2023, QT has slightly lengthen, and QTC is slightly lengthened. Impression: Normal sinus rhythm, with the intervals at a slightly progressed since previous EKG.
[2023-10-29 10:31] LABS: Calcium* 9.7 mg/dL (8.4-10.6); Creatinine* 1.1 mg/dL (0.5-1.5); Est. Creatinine Clearance* 54.87; Estimated Glomerular Filt Rate 59 ml/min
[2023-10-29 10:56] LABS: Basophils Percent Auto 0.5 % (0.0-3.0); Eosinophils Percent Auto 0.7 % (0.0-7.0); Hematocrit 33.6 % (33.0-51.0); Hemoglobin* 11.6 gm/dL (12.0-16.0); Immature Granulocytes Pct Auto 0.2 %; Lymphocytes Percent Auto 19.7 % (20-44); Mean Corpuscular HGB Conc 35 gm/dL (32-36); Mean Corpuscular Hemoglobin 40 pg (26-34); Mean Corpuscular Volume 114 fL (80-100); Monocytes Percent Auto 10.9 % (0.0-11.0); Platelet Count* 232 K/uL (140-440); RDW Coefficient of Variation % 13.4 % (11.5-15.5); Red Blood Count 2.94 m/uL (4.00-5.20); White Blood Count* 4.12 K/uL (4.50-11.00)
[2023-10-29 10:58] LABS: Slide Review Reflex No
[2023-10-29 11:00] LABS: Albumin* 5.3 g/dL (3.3-5.0); Chloride* 96 mmol/L (96-114); Potassium* 3.8 mmol/L (3.6-5.1); Sodium* 135 mmol/L (135-149)
[2023-10-29 11:02] LABS: Alkaline Phosphatase* 87 U/L (40-150); Anion Gap 13 mEq/L (7-15); Aspartate Amino Transferase* 55 U/L (12-35); Carbon Dioxide* 26 mmol/L (20-32); Total Protein* 8.3 g/dL (6.0-8.3)
[2023-10-29 11:03] LABS: Alanine Aminotransferase* 32 U/L (4-35); Blood Urea Nitrogen* 22 mg/dL (7-30); Glucose* 113 mg/dL (60-115)
[2023-10-29] MEDS: ZOLEDRONIC ACID 4 MG in 0.9 % SODIUM CHLORIDE 100 ml 100 ML 420 MG IVPB (12:03)
[2023-10-29] MEDS: FULVESTRANT 500MG KIT 500 MG IM (12:26)
[2023-11-26 13:41] LABS: Chloride* 103 mmol/L (96-114)
[2023-11-26 13:42] LABS: Potassium* 3.7 mmol/L (3.6-5.1); Sodium* 138 mmol/L (135-149)
[2023-11-26 13:44] LABS: Alkaline Phosphatase* 64 U/L (40-150); Anion Gap 10 mEq/L (7-15); Aspartate Amino Transferase* 29 U/L (12-35); Bilirubin Total* 0.6 mg/dL (0.1-1.5); Blood Urea Nitrogen* 25 mg/dL (7-30); Carbon Dioxide* 25 mmol/L (20-32); Creatinine* 1.2 mg/dL (0.5-1.5); Estimated Glomerular Filt Rate 53 ml/min; Total Protein* 7.8 g/dL (6.0-8.3)
[2023-11-26 13:45] LABS: Alanine Aminotransferase* 14 U/L (4-35); Calcium* 9.3 mg/dL (8.4-10.6); Glucose* 95 mg/dL (60-115)
[2023-11-26] MEDS: FULVESTRANT 500MG KIT 500 MG IM (14:36)
[2023-11-26 14:46] LABS: Basophils Percent Auto 1.5 % (0.0-3.0); Eosinophils Percent Auto 1.5 % (0.0-7.0); Hematocrit 31.7 % (33.0-51.0); Hemoglobin* 10.7 gm/dL (12.0-16.0); Immature Granulocytes Pct Auto 0.6 %; Lymphocytes Percent Auto 29.4 % (20-44); Mean Corpuscular HGB Conc 34 gm/dL (32-36); Mean Corpuscular Hemoglobin 39 pg (26-34); Mean Corpuscular Volume 116 fL (80-100); Monocytes Percent Auto 11.9 % (0.0-11.0); Neutrophils Percent Auto 55.1 % (42.0-72.0); Platelet Count* 226 K/uL (140-440); RDW Coefficient of Variation % 13.2 % (11.5-15.5); Red Blood Count 2.74 m/uL (4.00-5.20); White Blood Count* 3.27 K/uL (4.50-11.00)
[2023-11-26 14:53] LABS: Slide Review Reflex No
--- NOTE | 2023-12-02 10:43 | W.PM.EKGIN_ITS ---
EKG Interpretation EKG Data Date of EKG Tracin11/26/23 EKG interpretation date: 12/02/23 EKG interpretation time: 10:43 Prior EKG tracings: available for review Interpretation: EKG interpretation, indication was chemotherapeutic monitoring. Rhythm is sinus, ventricular rate is [address] wave changes are noted. QRS is 90 milliseconds QT is 422 and QTC is 442. QT has improved from 10/29/2023, from 426- 422. Assessment: EKG remains normal, QT is slightly improved from previous
== END 2023-12-13 23:59 | disposition home or self-care (01) ==
LOC: CCIC 13:15
PROVIDERS: Physician Assistant; PCP Family Medicine; Referring Provider Family Medicine; Visit Provider Internal Medicine Hematology & Oncology
DX: C50.911 Malignant neoplasm of unspecified site of right female breast (principal); Z17.0 Estrogen receptor positive status [ER+]; C77.3 Secondary and unspecified malignant neoplasm of axilla and upper limb lymph nodes; C79.51 Secondary malignant neoplasm of bone; E87.8 Other disorders of electrolyte and fluid balance, not elsewhere classified; R59.0 Localized enlarged lymph nodes; Z91.89 Other specified personal risk factors, not elsewhere classified; Z72.0 Tobacco use
CPT/HCPCS: 36415; 71046; 80048; 80053; 82310; 82565; 83735; 84132; 85025; 93005; 93010; 96365; 96366; 96372; 96374; 96376; 96401; 96402; 99211; 99214; 99215; G0463; J3489; J9395

== ENCOUNTER 2024-03-18 14:25 | Outpatient (CLI) | payer OTHER, SELFPAY ==
--- NOTE | 2024-03-18 15:00 | CRLHL7_ITS ---
For Patients: As a result of the Century Cures Act, medical imaging exams and procedure reports are released immediately into your electronic medical record. You may view this report before your referring provider. If you have questions, please contact your health care provider. Indication: METASTATIC BREAST CANCER, ASSES TREATMENT RESPONSE. Technique: CT Chest/Abd/Pelvis W/ 81CC ISOVUE [address] Please note that all CT scans at this facility use dose modulation, iterative reconstruction, and/or weight-based dosing when appropriate to reduce radiation dose to as low as reasonably achievable. Comparison: PET 10/23/23, 07/17/23, CT CHEST 05/20/23 CT CAP 11/29/21 Findings: In the chest, the visualized thyroid gland is unremarkable. Stable subcentimeter mediastinal lymph nodes are noted. No pericardial effusion. No enlarged hilar or axillary lymph nodes. Postop changes to the chest wall and right axilla. No postop fluid collection or abscess. Stable metastatic lesions within the proximal humeri. No vertebral body compression fracture. Stable subtle nodule along the right major fissure, series 3, image 38. Tiny nodular density within the right upper lobe is thought to represent a normal blood vessel. Mild post XRT radiation changes noted within the right anterior lung. In the abdomen/pelvis, there is no intrahepatic mass. No ascites. No stigmata of cirrhosis. No calcified gallstones. No biliary obstruction. The pancreas is normal. Normal spleen. No adrenal nodule. Sub cm simple cysts within the right kidney noted. Stable contour of the right kidney at the inferior pole. Tiny sub 5 millimeter left renal cysts. Atherosclerotic changes. Numerous sub cm retroperitoneal lymph nodes. Bladder is incompletely distended. IUD is present centrally within the uterus. Normal appendix. No bowel obstruction, free air, free fluid or abscess. Sub cm pelvic lymph nodes. No enlarged inguinal lymph nodes. Sclerotic foci within the proximal femora are similar. Diffuse sclerosis of the sacrum and L5 remains similar. Stable metastatic lesion within the right superior acetabulum. Impression: Stable osseous metastatic lesions. No pathologic fracture. Stable right-sided pulmonary nodule. Stable sub cm lymph nodes in the chest, abdomen and pelvis. Please note that all CT scans at this facility use dose modulation, iterative reconstruction, and/or weight-based dosing when appropriate to reduce radiation dose to as low as reasonably achievable. Dictated by Blade Montelongo MD @ 03/22/2024 9:19:34 AM (Electronically Signed)
--- NOTE | 2024-03-23 10:01 | W.ED.EKGINT ---
EKG Interpretation EKG Data Attestation: I personally reviewed and interpreted this ECG as follows: Date of EKG Tracin03/22/24 EKG interpretation date: 03/23/24 Prior EKG tracings: available for review Interpretation: EKG from 03/22/2024 is reviewed. Indication is chemotherapeutic monitoring. Old EKG from 02/26/2024, along with old EKG from 02/23/2024 Sinus rhythm with occasional PVCs, ventricular rate is 78, QRS is 84 milliseconds, QT is 404 milliseconds QTC is 460ms. Assessment; normal sinus rhythm, QT and QTC have improved since previous noted. Poor R-wave progression across the precordial leads remained stable.
== END 2024-03-18 14:26 | disposition home or self-care (01) ==
LOC: CT 14:25
PROVIDERS: PCP Family Medicine; Visit Provider Clinical Nurse Specialist
DX: C50.911 Malignant neoplasm of unspecified site of right female breast (principal); C77.3 Secondary and unspecified malignant neoplasm of axilla and upper limb lymph nodes; C79.51 Secondary malignant neoplasm of bone; C78.00 Secondary malignant neoplasm of unspecified lung; C77.0 Secondary and unspecified malignant neoplasm of lymph nodes of head, face and neck; R91.1 Solitary pulmonary nodule; R59.0 Localized enlarged lymph nodes
CPT/HCPCS: 71260; 74177; 93010; Q9967

== ENCOUNTER 2024-06-22 07:34 | Outpatient (CLI) | payer OTHER, SELFPAY ==
--- NOTE | 2024-06-22 08:00 | CRLHL7_ITS ---
For Patients: As a result of the Century Cures Act, medical imaging exams and procedure reports are released immediately into your electronic medical record. You may view this report before your referring provider. If you have questions, please contact your health care provider. NM Bone Scan: Technique: Radiopharmaceutical Tc-99m MDP 27.6 mCi IV Post-injection imaging delay: 3.0 Hr Clinical information: Metastatic breast cancer Comparison: None. Findings: There are multiple foci of increased radiotracer uptake within the calvarium, both shoulders, both humeri and multiple bilateral ribs as well as thoracic and lumbar spine, sacrum, left pelvis and right proximal femur consistent with bony metastatic disease. There is symmetric radiotracer uptake within both kidneys. Impression: Bony metastatic disease identified within the axial and appendicular skeleton. Dictated by Kevin Ortiz MD @ 06/23/2024 10:41:15 AM (Electronically Signed)
--- NOTE | 2024-06-22 08:00 | CRLHL7_ITS ---
For Patients: As a result of the Century Cures Act, medical imaging exams and procedure reports are released immediately into your electronic medical record. You may view this report before your referring provider. If you have questions, please contact your health care provider. INDICATION: Metastatic breast cancer. TECHNIQUE: CT chest, abdomen and pelvis acquired with 70 cc Isovue 370 IV contrast. COMPARISON: CT scan of the chest, abdomen and pelvis 03/18/2024. FINDINGS: CHEST: Lower neck and chest wall: Unremarkable thyroid. Bilateral mastectomies and right axillary no dissection, unchanged. No axillary lymphadenopathy. Mediastinum and laura: No mediastinal or hilar lymphadenopathy. Heart and vasculature: Unremarkable heart and thoracic aorta. Lungs: Mild fibrotic changes within the anterior right upper lobe. No new pulmonary mass or consolidation. Minimal atelectasis and/or scar in the lingula. Pleura: Normal. No pleural mass, pleural effusion or pneumothorax. Bones: Unchanged metastatic lesions within both humeral heads. No new bony metastatic disease. No acute bone or joint abnormality. ABDOMEN AND PELVIS: Liver: Normal in size and attenuation. No suspicious masses. Gallbladder and bile ducts: No stones or inflammation. No biliary dilatation. Pancreas: Unremarkable. No mass or inflammation. Spleen: Normal in size. No masses. Adrenal glands: Normal in size. No nodules. Kidneys, ureters and urinary bladder: Small renal cysts and too small to accurately characterize low-density lesions, unchanged. No renal stone or hydronephrosis. Unremarkable urinary bladder. GI tract: Unremarkable. Normal in caliber. No sign of mass or inflammation. Vasculature: Unremarkable. Lymph nodes: No lymphadenopathy. Peritoneum: Unremarkable. No sign of mass or infiltration. No free air or significant free fluid. Pelvis: IUD within the uterus. No adnexal mass. Abdominal wall: Unremarkable. No mass or bowel containing hernia. Bones: Unchanged skeletal metastases within the lower lumbar spine, pelvis and right proximal femur. No fracture. IMPRESSION: 1. Stable bony metastatic disease. 2. No acute abnormality or new metastatic disease identified within the chest, abdomen or pelvis. Please note that all CT scans at this facility use dose modulation, iterative reconstruction, and/or weight-based dosing when appropriate to reduce radiation dose to as low as reasonably achievable. Dictated by Kevin Ortiz MD @ 06/23/2024 10:10:24 AM (Electronically Signed)
== END 2024-06-22 07:35 | disposition home or self-care (01) ==
LOC: CT 07:34
PROVIDERS: PCP Family Medicine; Visit Provider Internal Medicine Hematology & Oncology
DX: C50.911 Malignant neoplasm of unspecified site of right female breast (principal); C79.51 Secondary malignant neoplasm of bone; C77.3 Secondary and unspecified malignant neoplasm of axilla and upper limb lymph nodes; C77.0 Secondary and unspecified malignant neoplasm of lymph nodes of head, face and neck; C78.00 Secondary malignant neoplasm of unspecified lung
CPT/HCPCS: 71260; 74177; 78306; A9503; Q9967

== ENCOUNTER 2024-06-22 07:45 | Outpatient (RCR) | payer OTHER, SELFPAY ==
[2023-12-25 13:06] LABS: Basophils Percent Auto 0.9 % (0.0-3.0); Eosinophils Percent Auto 1.2 % (0.0-7.0); Hematocrit 32.2 % (33.0-51.0); Hemoglobin* 10.9 gm/dL (12.0-16.0); Lymphocytes Percent Auto 28.5 % (20-44); Mean Corpuscular HGB Conc 34 gm/dL (32-36); Mean Corpuscular Hemoglobin 39 pg (26-34); Mean Corpuscular Volume 116 fL (80-100); Monocytes Percent Auto 13.4 % (0.0-11.0); Platelet Count* 197 K/uL (140-440); RDW Coefficient of Variation % 12.9 % (11.5-15.5); Red Blood Count 2.77 m/uL (4.00-5.20); White Blood Count* 3.37 K/uL (4.50-11.00)
[2023-12-25 13:10] LABS: Slide Review Reflex No
[2023-12-25 13:25] LABS: Albumin* 4.9 g/dL (3.3-5.0); Chloride* 98 mmol/L (96-114)
[2023-12-25 13:26] LABS: Potassium* 3.4 mmol/L (3.6-5.1); Sodium* 136 mmol/L (135-149)
[2023-12-25 13:28] LABS: Alkaline Phosphatase* 65 U/L (40-150); Anion Gap 12 mEq/L (7-15); Aspartate Amino Transferase* 29 U/L (12-35); Bilirubin Total* 0.6 mg/dL (0.1-1.5); Blood Urea Nitrogen* 17 mg/dL (7-30); Carbon Dioxide* 26 mmol/L (20-32); Creatinine* 1.1 mg/dL (0.5-1.5); Estimated Glomerular Filt Rate 59 ml/min; Total Protein* 7.7 g/dL (6.0-8.3)
[2023-12-25 13:29] LABS: Alanine Aminotransferase* 18 U/L (4-35); Glucose* 103 mg/dL (60-115)
[2023-12-25 13:36] LABS: Magnesium* 0.9 mg/dL (1.5-2.6)
[2023-12-25] MEDS: MAGNESIUM IV 4 GM/100 ML PIGGYBACK IVPB (14:09)
[2023-12-25] MEDS: FULVESTRANT 500MG KIT 500 MG IM (16:09)
[2023-12-25 18:02] VITALS: BP 132/93; PULSE 60; RESP 16; TEMP 36.6; O2SAT 99
[2023-12-26 11:15] VITALS: BP 107/76; PULSE 71; RESP 16; TEMP 36.7; O2SAT 97
[2023-12-26] MEDS: MAGNESIUM IV 4 GM/100 ML PIGGYBACK IVPB (11:33)
[2023-12-29 11:08] LABS: Chloride* 98 mmol/L (96-114); Potassium* 3.5 mmol/L (3.6-5.1); Sodium* 134 mmol/L (135-149)
[2023-12-29 11:10] LABS: Creatinine* 1.1 mg/dL (0.5-1.5); Est. Creatinine Clearance* 54.87; Estimated Glomerular Filt Rate 59 ml/min
[2023-12-29 11:11] LABS: Anion Gap 16 mEq/L (7-15); Blood Urea Nitrogen* 13 mg/dL (7-30); Calcium* 9.3 mg/dL (8.4-10.6); Carbon Dioxide* 20 mmol/L (20-32); Glucose* 151 mg/dL (60-115)
[2023-12-29 11:12] LABS: Magnesium* 1.5 mg/dL (1.5-2.6)
[2023-12-29 11:20] VITALS: BP 147/87; PULSE 110; RESP 18; TEMP 37.2; O2SAT 98
--- NOTE | 2023-12-29 11:58 | ONC.NURNOTE ---
Pt here for magnesium recheck. Mag 1.5. Pt denies any muscle cramps. HR 110, pt states she will stay better hydrated with fluids with electrolytes. Labs discussed with Ashley Benavides PA-C, no additional magnesium needed at this time. Pt verbalized understanding of plan of care.
--- NOTE | 2024-01-06 09:42 | W.ED.EKGINT ---
EKG Interpretation EKG Data Attestation: I personally reviewed and interpreted this ECG as follows: Date of EKG Tracin12/25/23 EKG interpretation date: 01/06/24 EKG interpretation time: 09:43 Prior EKG tracings: available for review Interpretation: EKG interpretation is done, with indication of chemotherapeutic monitoring. Old EKG is compared from 10/29/2023, normal sinus rhythm, with a ventricular rate of 65, QRS is 88 milliseconds, QT is 418, and QTC is 434. No acute ST wave changes are noted, rhythm complexes are high, but this is likely a normal variant, in comparison to old EKG. Assessment: Normal sinus rhythm, with a ventricular rate of 65, QT and QTC have improved since old EKG.
[2024-01-20 14:23] LABS: Basophils Percent Auto 1.2 % (0.0-3.0); Eosinophils Percent Auto 0.8 % (0.0-7.0); Hematocrit 29.9 % (33.0-51.0); Hemoglobin* 10.2 gm/dL (12.0-16.0); Lymphocytes Percent Auto 26.4 % (20-44); Mean Corpuscular HGB Conc 34 gm/dL (32-36); Mean Corpuscular Hemoglobin 40 pg (26-34); Mean Corpuscular Volume 117 fL (80-100); Monocytes Percent Auto 13.4 % (0.0-11.0); Neutrophils Percent Auto 58.2 % (42.0-72.0); Platelet Count* 167 K/uL (140-440); Red Blood Count 2.55 m/uL (4.00-5.20); White Blood Count* 2.46 K/uL (4.50-11.00)
[2024-01-20 14:30] LABS: Slide Review Reflex No
[2024-01-20 14:40] LABS: Albumin* 4.6 g/dL (3.3-5.0); Chloride* 99 mmol/L (96-114)
[2024-01-20 14:41] LABS: Potassium* 3.7 mmol/L (3.6-5.1); Sodium* 137 mmol/L (135-149)
[2024-01-20 14:43] LABS: Anion Gap 10 mEq/L (7-15); Bilirubin Total* 0.5 mg/dL (0.1-1.5); Carbon Dioxide* 28 mmol/L (20-32); Creatinine* 1.1 mg/dL (0.5-1.5); Est. Creatinine Clearance* 54.87; Estimated Glomerular Filt Rate 59 ml/min
[2024-01-20 14:44] LABS: Alanine Aminotransferase* 15 U/L (4-35); Alkaline Phosphatase* 78 U/L (40-150); Aspartate Amino Transferase* 26 U/L (12-35); Blood Urea Nitrogen* 19 mg/dL (7-30); Glucose* 99 mg/dL (60-115); Total Protein* 7.4 g/dL (6.0-8.3)
[2024-01-20 14:49] LABS: Magnesium* 0.9 mg/dL (1.5-2.6)
[2024-01-20] MEDS: MAGNESIUM OXIDE 400 MG TABLET 800 MG PO (15:13)
--- NOTE | 2024-01-20 15:29 | ONC.NURNOTE ---
Addendum entered by Justa Hernandez RN 01/20/24 16:01: Per Dr. Carlin's note, hold Zometa d/t upcoming cavity repair at [facility]. Pt to update BNN with date of procedure; BNN to review with Dr. Carlin on when to resume. Original Note: Accompanied pt to appt with Dr. Carlin. Mg 0.9; gave 800 mg Mg Oxide oral today. Sched for 4 grams IV MG Sulfate tomorrow; recheck Mg and proceed with Faslodex Fri as scheduled. Proceed with next cycle Ciera; Dr. Carlin submitting for refill. Pt notes she has enough pills for [address] Plan for Pet CT early February; after the holidays, per pt request. Paper Pet order on Dr. Carlin's desk to sign when next in office; return to BNN to schedule.
[2024-01-21 08:29] VITALS: BP 128/72; PULSE 79; RESP 16; TEMP 36.4; O2SAT 100
[2024-01-21] MEDS: MAGNESIUM IV 4 GM/100 ML PIGGYBACK IVPB (08:44)
[2024-01-23 09:26] VITALS: BP 135/84; PULSE 86; RESP 18; TEMP 36.7; O2SAT 98
[2024-01-23] MEDS: FULVESTRANT 500MG KIT 500 MG IM (09:31)
[2024-02-05 14:57] LABS: Magnesium* 1.3 mg/dL (1.5-2.6)
--- NOTE | 2024-02-05 15:54 | ONC.NURNOTE ---
Labs reviewed with Camelia Alicia APRN. Patient instructed to report to clinic tomorrow for 2Gm IV Magnesium. She is currently taking Magnesium 400 mg daily in the morning. She will increase to 200 mg in the AM and 400 mg at HS. Instructed to call if she develops diarrhea. Patient verbalizes understanding of plan.
[2024-02-06 11:40] VITALS: BP 119/78; PULSE 75; RESP 16; TEMP 36.1; O2SAT 99
[2024-02-06] MEDS: MAGNESIUM IV 2 GM/50 ML PIGGYBACK IVPB (11:52)
--- NOTE | 2024-02-16 11:23 | ONC.NURNOTE ---
Call from patient to cancel her labs, EKG and follow up visit for today. Patient had a family emergency. Patient rescheduled for 02/22. She was scheduled to resume her next cycle of Ribociclib on Friday. Patient instructed to hold until after her assessment on 02/22.
[2024-02-23 14:19] LABS: Basophils Absolute Auto 0.03 K/uL (0.00-0.30); Basophils Percent Auto 0.6 % (0.0-3.0); Eosinophils Absolute Auto 0.06 K/uL (0.00-0.50); Eosinophils Percent Auto 1.3 % (0.0-7.0); Hematocrit 31.7 % (33.0-51.0); Hemoglobin* 11.5 gm/dL (12.0-16.0); Immature Granulocytes Abs Auto 0.02 K/uL (0.00-0.30); Immature Granulocytes Pct Auto 0.4 %; Lymphocytes Percent Auto 15.5 % (20-44); Mean Corpuscular HGB Conc 36 gm/dL (32-36); Mean Corpuscular Hemoglobin 40 pg (26-34); Mean Corpuscular Volume 110 fL (80-100); Monocytes Percent Auto 12.3 % (0.0-11.0); Neutrophils Absolute Auto 3.28 K/uL (1.7-7.0); Neutrophils Percent Auto 69.9 % (42.0-72.0); Platelet Count* 167 K/uL (140-440); RDW Coefficient of Variation % 12.2 % (11.5-15.5); Red Blood Count 2.88 m/uL (4.00-5.20)
[2024-02-23 14:25] LABS: Slide Review Reflex No
[2024-02-23 14:39] LABS: Albumin* 5.1 g/dL (3.3-5.0); Chloride* 85 mmol/L (96-114); Sodium* 127 mmol/L (135-149)
[2024-02-23 14:41] LABS: Creatinine* 1.2 mg/dL (0.5-1.5); Estimated Glomerular Filt Rate 53 ml/min
[2024-02-23 14:42] LABS: Alanine Aminotransferase* 25 U/L (4-35); Alkaline Phosphatase* 105 U/L (40-150); Anion Gap 15 mEq/L (7-15); Aspartate Amino Transferase* 47 U/L (12-35); Bilirubin Total* 1.1 mg/dL (0.1-1.5); Blood Urea Nitrogen* 25 mg/dL (7-30); Calcium* 9.3 mg/dL (8.4-10.6); Carbon Dioxide* 27 mmol/L (20-32); Glucose* 104 mg/dL (60-115); Magnesium* 1.9 mg/dL (1.5-2.6); Total Protein* 8.1 g/dL (6.0-8.3)
[2024-02-23 14:48] LABS: Potassium* 2.9 mmol/L (3.6-5.1)
[2024-02-23] MEDS: FULVESTRANT 500MG KIT 500 MG IM (16:12)
--- OUTSIDE RECORDS SUMMARY | 2024-02-26 07:21 | XMS_ITS | Continuity of Care Document ---
Author Name NwHIN User BernabeleMN-a llowed Address Unknown Organization Unknown Address Unknown Procedures FILTER APPLIED:Only known Procedures with Onset Date within the last 5 years Procedure Date Procedure Provider Additiona l Information Status OFFICE O/P EST LOW 20 MIN (87058) Completed OFFICE O/P EST HI 40 MIN (42048) Completed TTE W/DOPPLER COMPLETE (24794) Completed CHEMO ANTI-NEOPL SQ/IM (45851) Completed DXA BONE DENSITY AXIAL (39609) Completed COMPLETE CBC W/AUTO DIFF WBC (85000) Completed ASSAY OF MAGNESIUM (61365) Completed ROUTINE VENIPUNCTURE (62841) Completed COMPREHEN METABOLIC PANEL (04290) Completed ELECTROCARDIOGRAM TRACING (81925) Completed CHEMO ANTI-NEOPL SQ/IM (48068) Completed OFFICE O/P EST HI 40 MIN (10406) Completed COMPLETE CBC W/AUTO DIFF WBC (28005) Completed COMPREHEN METABOLIC PANEL (92354) Completed ROUTINE VENIPUNCTURE (09325) Completed OFFICE O/P EST LOW 20 MIN (59512) Completed CT THORAX DX C+ (90924) Completed CT HEAD/BRAIN W/O W/DYE (26051) Completed US LMTD JT/FCL EVL NVASC XTR (56841) Completed NEEDLE BIOPSY LYMPH NODES (57484) Completed BIOPSY MUSCLE PERQ NEEDLE () Completed ECHO GUIDE FOR BIOPSY (91196) Completed OFFICE O/P EST MOD 30 MIN (48619) Completed OFFICE O/P EST SF 10 MIN (69186) Completed OFFICE O/P EST SF 10 MIN (16038) Completed Encounters FILTER APPLIED:Only known Encounters with Admission Date within the last 5 years Encounter Location Admission Discharge Billing Code Consultant Mariza giordano Outpatient Wanda Henderson Outpatient [facility] Outpatient Viola Chavez Outpatient Betsey rubalcava Outpatient [facility] Outpatient Benny Carlin Outpatient Betsey rubalcava Outpatient Benny Carlin
--- OUTSIDE RECORDS SUMMARY | 2024-02-26 07:21 | XMS_ITS | Clinical Summary ---
Author Organization [employer] [facility] Address [place], [place] [address] Care Team Providers Care Lcac Operator Name Role Phone Vicki Rawls MD Unavailable [phone] Esvin Manzano MD Primary Care Provider [phone] Allergies Active Allergy Reactions Criticality Noted Date Comments Iron Hives 04/24/2009 While Lisinopril Anaphylaxis,Angioedema High 06/27/2020 Medications amLODIPine (NORVASC) 10 mg tablet Take 10 mg by mouth once daily. 1 Active acetaminophen (TYLENOL) 325 mg tabletIndicati ons:Malignant neoplasm of lower-inner quadrant of right breast of female, estrogen receptor positive (HC) Take 3 Tablets (975 mg) by mouth every 6 hours if needed. Max acetaminophen dose: 4000mg in 24 hrs. 1 Active methocarbamoL (ROBAXIN) 750 mg tabletIndicati ons:Malignant neoplasm of lower-inner quadrant of right breast of female, estrogen receptor positive (HC) Take 1 Tablet (750 mg) by mouth every 6 hours if needed. 50 Tablet 1 07/06/2020 11:33 AM CDT 1 Active Additional Information Patient not taking.Reported on 05/27/2023 anastrozole (ARIMIDEX) 1 mg tablet Take 1 mg by mouth once daily. 1 Active chlorthalidone (HYGROTON) 25 mg tablet Take 12.5 mg by mouth once daily. 4 Active ibuprofen (ADVIL; MOTRIN) 600 mg tablet Take 600 mg by mouth every 8 hours if needed. Maximum of 3200 mg in 24 hours. Active LORazepam (ATIVAN) 0.5 mg tab Take 0.5 mg by mouth once daily if needed. 1 Active metoprolol succinate (TOPROL XL) 50 mg sustained-rele ase tablet Take 50 mg by mouth once daily. 4 Active Active Problems Problem Noted Date Diagnosed Date Malignant neoplasm of lower- inner quadrant of right breast of female, estrogen receptor positive 06/30/2020 Cancer Staging:Clinical stage from 05/23/2020:Stage IB(cT2, cN0, cM0, G2, ER+, AK+, HER2-) - Signed by Vicki Rawls MD on 06/30/2020 Pathologic:Stage IIA(pT2, pN1a, cM0, G3, ER+, AK+, HER2-) - Signed by Monika Grubbs PA on 07/18/2020 Hypertension 06/20/2011 Vitamin D deficiency 03/07/2011 Genital warts 10/13/2009 Anxiety state, unspecified 10/13/2009 Immunizations Name Administration Dates Next Due Tdap 11/01/2008 Family History Medical History Relation Name Comments Hypertension Brother Hypertension Father Other Father parkinson's Cancer Maternal Aunt Heart Disease Maternal Grandfather MT (ag e 60s) Hypertension Mother Cancer-breast Other Mat GGM Hypertension Sister Relation Name Status Comments Brother Father Maternal Aunt Maternal Grandfather Mother Alive Other Mat GGM Sister Social History Tobacco Use Types Packs/Day Years Used Date Smoking Tobacco: Every Day Cigarettes 0.3 38 Started: 1986 Smokeless Tobacco: Never Comments:Working on [...] Paying Living Expenses Not on file 02/20/2021 Comments No Sex and Gender Information Value Date Recorded Sex Assigned at Not on file Legal Sex Female 7:43 AM PUMP TECHNICIAN Gender Identity Not on file Sexual Orientation Not on file 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 Not on file Not on file Not on file Obstetrics History Para Term [...] (6 lb 9 oz) M CS-Un spec Livin g DEBORAH Comments: LABOR 27 WKS 007 Para 2.81 kg (6 lb 3 oz) F Livin g Last Filed Vital Signs Vital Sign Reading Time Taken Comments Blood Pressure 122/73 05/28/2023 10:30 AM CDT Pulse 72 05/28/2023 10:30 AM CDT Temperature 36.9 C (98.4 F) 05/28/2023 9:55 AM CDT Respiratory Rate 16 05/28/2023 10:3 0 AM [...] age 15-65 1981 Hepatitis C screening for ag e 18-79 1984 Colonoscopy through age 75 08/18/2011 Lipids for age 45-75 03/04/2016 03/04/2011 Pneumococcal series for age 50+ (1 of 1 - PCV) 2016 Zoster (shingles) series for age 50+ (1 of 2) 2016 Tetanus booster 11/01/2018 11/01/2008 Pap test for age 21-65 01/20/2021 8, 01/20/2018, 03/04/2011 BMI (ht and wt on same day) for age 18+ 06/22/2022 06/22/2021, 01/31/2021, 07/18/2020, Additional history exists COVID-19 vaccine series ( season) 2023 11/10/2020, 06/03/2020, 05/13/2020 Influenza for age 50-64 10/26/2023 Tdap Completed 11/01/2008 Medical Devices Implanted Type Area Cell Operation Supervisor Device Identifier Shelf Expiration Date Model / Serial / Lot [id number] Alloderm Select Thick Perforated Implanted:Qty: 1 on 07/05/2020 by Eleazar Duran MD at [facility] Explanted:at [facility] (Quantity not on file) Right: Breast [employer] 10/24/2021 [id number] / [id number] / [id number] Alloderm Select Thick Perforated Implanted:Qty: 1 on 07/05/2020 by Eleazar Duran MD at [facility] Explanted:at [facility] (Quantity not on file) Left: Breast [employer] 10/24/2021 [id number] / [id number] / [id number] tissue Fbi Profiler Breast [place] Cpx 4 Plus Smooth 350cc Implanted:Qty: 1 on 07/05/2020 by Eleazar Duran MD at [facility] Explanted:at [facility] (Quantity not on file) Left: Breast [employer] [place] [employer] 02/13/2024 [id number] / [id number] Description: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 VOCATIONAL 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 TEACHER BREAST [place] CPX 4 PLUS SMOOTH 350CC [id number] Implanted:Qty: 1 on 07/05/2020 by Eleazar Duran MD at [facility] Explanted:at [facility] (Quantity not on file) Right: Breast [employer] [place] [employer] 02/13/2024 [id number] / [id number] Description:BREAST IMPLANT C PX4 PLUS SM TE MH 350CC Procedures Procedure Name Priority Date/Time Associated Diagnosis Comments FORM CARPENTER THIN PREP PAP SCREEN IMAGED Routine 01/20/2018 1:30 PM PUMP TECHNICIAN LIPID PANEL Routine 03/04/2011 11:51 AM PUMP TECHNICIAN Routine general medical examination at a health care facility from Last 3 Months or Most Recently Relevant to Health Maintenance Results * FORM CARPENTER THIN PREP PAP SCREEN IMAGED (01/20/2018 1:30 PM PUMP TECHNICIAN) Case Report Gynecologic Cytology Report Case: [id number] Authorizing Provider: Pat Cabrera MD Collected: 01/20/2018 1330 First Screen: Mairella Lynch Received: 01/22/2018 1810 Specimen: FORM CARPENTER ThinPrep Vial Screening, Cervical/Vaginal 01/30/2018 3:20 PM PUMP TECHNICIAN [facility] LABORATORY-C ENTRAL LABORATORY INTERPRETATION/ RESULT NEGATIVE FOR INTRAEPITHELIAL LESION OR MALIGNANCY (NIL) (none) 01/30/2018 3:20 PM PUMP TECHNICIAN [facility] ENTRAL LABORATORY IMEN ADEQUACY Satisfactory for evaluation No endocervical component seen 01/30/2018 3:20 PM PUMP TECHNICIAN [facility] [employer] LABORATORYC ENTRAL LABORATORY HPV REQUEST HPV and PAP 01/30/2018 3:20 PM PUMP TECHNICIAN [facility] ENTRAL LABORATORY Automated Review Successful 01/30/2018 3:20 PM PUMP TECHNICIAN [facility]- ENTRAL LABORATORY Comment:Specimen processed s uccessfully by automated greige mender device, ThinPrep Imaging System, [employer] ANCILLARY TESTING FORM CARPENTER HPV Ordered, Please see separate report 01/30/2018 3:20 PM PUMP TECHNICIAN [facility] ENTRAL LABORATORY Note The pap test is a screening technique, not a diagnostic procedure. It is used primarily to screen for squamous cancers and precursor lesions. Published studies have shown that it is subject to both false negative and false positive results. The pap test should not be used as the sole means to diagnose or exclude pre-malignant and malignant lesions. Cytology is screened and interpreted at [facility] Laboratory - [address], [place] [address] and [facility] - [address]; [place] [address] and [facility] - [address]; [place] [address] and [facility] [address]; [place] [address] 01/30/2018 3:20 PM PUMP TECHNICIAN [facility] LABORATORY-C ENTRAL LABORATORY Other (Cervical/Vagina l) 01/20/2018 1:30 PM PUMP TECHNICIAN 01/22/2018 6:10 PM PUMP TECHNICIAN Pat Cabrera MD PATHOLOGY/CYTOLOGY Final Resu lt [facility] LABORATORY-CENTRAL LABORATORY [address] [place] [address], [place] * (ABNORMAL) LIPID PANEL (03/04/2011 11:51 AM PUMP TECHNICIAN) CHOLESTEROL,TOTAL 208(H) 110 - 199 mg/dL [facility] TRIGLYCERIDES 44 40 - 149 mg/dL [facility] HDL CHOLESTEROL 100 >40 mg/dL [facility] CHOL/HDL RATIO 2.08 <4.51 [facility] LDL CHOLESTEROL 99 <131 mg/dL [facility] PATIENT STATUS Fasting [facility] Blood specimen (specimen) BLOOD SPECIMEN / Unknown 03/04/2011 11:51 AM PUMP TECHNICIAN 03/04/2011 11:45 AM PUMP TECHNICIAN Koki Bran CNM CHEMISTRY Final Result [facility] LABORATORY INTERNAL ZIP [address] [place] [id number] from Last 3 Months or Most Recently Relevant to Health Maintenance Insurance [facility] Advance Directives * Full Code (Latest Code [...] Code Status Discussion: Not Discussed Care Teams Lcac Operator Relationship Specialty Start Date End Date Esvin Manzano MD [address] [place] [address] PCP - General Family Practice 05/14/23 Vicki Rawls MD Surgery - Oncology 06/29/20
[2024-02-26 15:01] LABS: Chloride* 92 mmol/L (96-114); Potassium* 3.8 mmol/L (3.6-5.1); Sodium* 133 mmol/L (135-149)
[2024-02-26 15:04] LABS: Anion Gap 8 mEq/L (7-15); Blood Urea Nitrogen* 19 mg/dL (7-30); Carbon Dioxide* 33 mmol/L (20-32); Creatinine* 0.8 mg/dL (0.5-1.5); Est. Creatinine Clearance* 75.45; Estimated Glomerular Filt Rate 86 ml/min
[2024-02-26 15:05] LABS: Glucose* 108 mg/dL (60-115)
[2024-02-26 15:25] LABS: Magnesium* 1.6 mg/dL (1.5-2.6)
--- NOTE | 2024-02-26 16:16 | ONC.NURNOTE ---
Reviewed labs and repeat EKG with Camelia Romero APRN. EKG yet to be finalized with Dr. Mercado in ED but initial report is normal sinus rhythm. QCT interval improved. Restart Kisqali. Review with Ashley Benavides PA-C when to recheck labs, if continue NA prescription. Pt verbalizes understanding.
[2024-03-04 14:48] LABS: Chloride* 106 mmol/L (96-114); Potassium* 4.3 mmol/L (3.6-5.1); Sodium* 138 mmol/L (135-149)
[2024-03-04 14:50] LABS: Est. Creatinine Clearance* 60.36; Estimated Glomerular Filt Rate 66 ml/min
[2024-03-04 14:51] LABS: Anion Gap 8 mEq/L (7-15); Blood Urea Nitrogen* 17 mg/dL (7-30); Calcium* 8.9 mg/dL (8.4-10.6); Carbon Dioxide* 24 mmol/L (20-32); Glucose* 106 mg/dL (60-115); Magnesium* 1.6 mg/dL (1.5-2.6)
--- NOTE | 2024-03-08 15:07 | ONC.NURNOTE ---
Patient informed her labs from 03/04 are in the normal ranges. Patient instructed to continue taking Magnesium, Sodium and Potassium as directed. Patient verbalizes understanding.
--- NOTE | 2024-03-09 12:48 | W.ED.EKGINT ---
EKG Interpretation EKG Data Attestation: I personally reviewed and interpreted this ECG as follows: Date of EKG Tracin03/25/24 EKG interpretation date: 03/09/24 Prior EKG tracings: available for review Interpretation: EKG shows normal sinus rhythm, prolonged QT of 450, she QTC is 516, NV interval 190. No acute ST wave changes, pronounced R waves across the precordium, may be indicated LVH a more likely from lead placement. Assessment: Prolonged QT, this is increased from previous EKG
--- NOTE | 2024-03-09 12:54 | W.ED.EKGINT ---
EKG Interpretation EKG Data Attestation: I personally reviewed and interpreted this ECG as follows: Date of EKG Tracin02/26/24 EKG interpretation date: 03/09/24 Prior EKG tracings: available for review Interpretation: EKG interpretation from above date, normal sinus rhythm with ventricular rate of 71, QRS is 96 milliseconds, QT is 408, QTC is 443. Large R-waves she in across the precordium, again this may be related to LVH or lead placement Assessment: Normal sinus rhythm normal EKG, with improvement of the QT from previously 450 to now 418ms, and also QTC
--- NOTE | 2024-03-10 09:14 | ONC.NURNOTE ---
Patient informed that her insurance denied coverage for her PET/CT. This appointment has been cancelled and orders placed for CT CAP instead. Patient verbalizes understanding.
[2024-03-22 08:03] LABS: Basophils Percent Auto 0.8 % (0.0-3.0); Eosinophils Percent Auto 1.6 % (0.0-7.0); Hematocrit 30.2 % (33.0-51.0); Hemoglobin* 10.1 gm/dL (12.0-16.0); Lymphocytes Percent Auto 21.4 % (20-44); Mean Corpuscular HGB Conc 33 gm/dL (32-36); Mean Corpuscular Hemoglobin 39 pg (26-34); Mean Corpuscular Volume 117 fL (80-100); Monocytes Percent Auto 7.4 % (0.0-11.0); Neutrophils Percent Auto 68.8 % (42.0-72.0); Platelet Count* 155 K/uL (140-440); RDW Coefficient of Variation % 13.1 % (11.5-15.5); Red Blood Count 2.58 m/uL (4.00-5.20); White Blood Count* 2.57 K/uL (4.50-11.00)
[2024-03-22 08:06] LABS: Slide Review Reflex No
[2024-03-22 08:22] LABS: Albumin* 4.9 g/dL (3.3-5.0)
[2024-03-22 08:23] LABS: Chloride* 105 mmol/L (96-114); Sodium* 140 mmol/L (135-149)
[2024-03-22 08:25] LABS: Alkaline Phosphatase* 56 U/L (40-150); Aspartate Amino Transferase* 21 U/L (12-35); Bilirubin Total* 0.9 mg/dL (0.1-1.5); Carbon Dioxide* 26 mmol/L (20-32); Est. Creatinine Clearance* 60.36; Estimated Glomerular Filt Rate 66 ml/min; Total Protein* 7.8 g/dL (6.0-8.3)
[2024-03-22 08:26] LABS: Alanine Aminotransferase* 14 U/L (4-35); Anion Gap 9 mEq/L (7-15); Blood Urea Nitrogen* 18 mg/dL (7-30); Glucose* 103 mg/dL (60-115); Magnesium* 1.7 mg/dL (1.5-2.6)
[2024-03-22] MEDS: FULVESTRANT 500MG KIT 500 MG IM (10:26)
[2024-04-19 14:44] LABS: Basophils Percent Auto 1.7 % (0.0-3.0); Eosinophils Percent Auto 0.9 % (0.0-7.0); Hematocrit 31.2 % (33.0-51.0); Hemoglobin* 10.4 gm/dL (12.0-16.0); Lymphocytes Percent Auto 26.6 % (20-44); Mean Corpuscular HGB Conc 33 gm/dL (32-36); Mean Corpuscular Hemoglobin 39 pg (26-34); Mean Corpuscular Volume 117 fL (80-100); Monocytes Percent Auto 15.5 % (0.0-11.0); Neutrophils Percent Auto 55.3 % (42.0-72.0); Platelet Count* 213 K/uL (140-440); RDW Coefficient of Variation % 13.4 % (11.5-15.5); Red Blood Count 2.67 m/uL (4.00-5.20); White Blood Count* 2.33 K/uL (4.50-11.00)
[2024-04-19 14:57] LABS: Slide Review Reflex No
[2024-04-19 14:58] LABS: Albumin* 4.9 g/dL (3.3-5.0); Chloride* 103 mmol/L (96-114); Potassium* 4.3 mmol/L (3.6-5.1); Sodium* 137 mmol/L (135-149)
[2024-04-19 15:01] LABS: Alanine Aminotransferase* 11 U/L (4-35); Alkaline Phosphatase* 62 U/L (40-150); Anion Gap 10 mEq/L (7-15); Aspartate Amino Transferase* 26 U/L (12-35); Bilirubin Total* 0.6 mg/dL (0.1-1.5); Blood Urea Nitrogen* 14 mg/dL (7-30); Carbon Dioxide* 24 mmol/L (20-32); Creatinine* 0.9 mg/dL (0.5-1.5); Est. Creatinine Clearance* 69.57; Estimated Glomerular Filt Rate 75 ml/min; Glucose* 105 mg/dL (60-115); Total Protein* 7.6 g/dL (6.0-8.3)
[2024-04-19 15:02] LABS: Calcium* 9.6 mg/dL (8.4-10.6); Magnesium* 1.8 mg/dL (1.5-2.6)
[2024-04-19] MEDS: FULVESTRANT 500MG KIT 500 MG IM (15:48)
--- NOTE | 2024-05-04 11:11 | W.ED.EKGINT ---
EKG Interpretation EKG Data Attestation: I personally reviewed and interpreted this ECG as follows: Date of EKG Tracin04/19/24 EKG interpretation date: 05/04/24 Prior EKG tracings: available for review Interpretation: EKG interpretation for chemotherapeutic monitoring, EKG is compared to previous EKG from 03/22/2024. Rhythm remains sinus, rate 69, no acute ST wave changes are noted. QT interval is 4 O2. QTC is 430. Assessment: Abnormal EKG, with poor Q wave progression across the precordial leads, which is stable from previous EKG, no acute changes, QT and QTC slightly improved.
[2024-05-17 13:58] LABS: Basophils Percent Auto 1.2 % (0.0-3.0); Eosinophils Percent Auto 0.8 % (0.0-7.0); Hemoglobin* 11.2 gm/dL (12.0-16.0); Mean Corpuscular HGB Conc 34 gm/dL (32-36); Mean Corpuscular Hemoglobin 39 pg (26-34); Mean Corpuscular Volume 113 fL (80-100); Monocytes Percent Auto 12.4 % (0.0-11.0); Neutrophils Percent Auto 56.6 % (42.0-72.0); Platelet Count* 238 K/uL (140-440); RDW Coefficient of Variation % 12.8 % (11.5-15.5); Red Blood Count 2.91 m/uL (4.00-5.20); White Blood Count* 2.41 K/uL (4.50-11.00)
[2024-05-17 14:02] LABS: Slide Review Reflex Yes
[2024-05-17 14:16] LABS: Albumin* 5.2 g/dL (3.3-5.0); Chloride* 101 mmol/L (96-114)
[2024-05-17 14:17] LABS: Potassium* 4.5 mmol/L (3.6-5.1); Sodium* 138 mmol/L (135-149)
[2024-05-17 14:19] LABS: Alanine Aminotransferase* 17 U/L (4-35); Alkaline Phosphatase* 59 U/L (40-150); Anion Gap 12 mEq/L (7-15); Aspartate Amino Transferase* 31 U/L (12-35); Bilirubin Total* 0.7 mg/dL (0.1-1.5); Blood Urea Nitrogen* 24 mg/dL (7-30); Carbon Dioxide* 25 mmol/L (20-32); Creatinine* 1.2 mg/dL (0.5-1.5); Est. Creatinine Clearance* 48.42; Estimated Glomerular Filt Rate 53 ml/min
[2024-05-17 14:20] LABS: Calcium* 9.7 mg/dL (8.4-10.6); Glucose* 116 mg/dL (60-115); Magnesium* 1.7 mg/dL (1.5-2.6); Total Protein* 8.1 g/dL (6.0-8.3)
[2024-05-17 14:59] LABS: Slide Review Acceptable Review (Acceptable)
[2024-05-17] MEDS: FULVESTRANT 500MG KIT 500 MG IM (15:45)
--- NOTE | 2024-05-25 10:28 | W.ED.EKGINT ---
EKG Interpretation EKG Data Attestation: I personally reviewed and interpreted this ECG as follows: Date of EKG Tracin05/17/24 EKG interpretation date: 05/25/24 Prior EKG tracings: available for review Interpretation: EKG interpretation is done, compared to previous EKG from 04/19/2024. Indication for EKG is chemotherapeutic monitoring. Rhythm continues to be normal sinus, with a ventricular rate of 70. QT is 412 milliseconds, QTC is 444, QRS is 96 milliseconds, Assessment: No appreciable change, abnormal EKG with poor R-wave progression across the precordial leads which is stable from previous EKGs, no acute changes, QT and QTC slightly prolonged in comparison to previous.
[2024-06-14 14:39] LABS: Basophils Percent Auto 1.3 % (0.0-3.0); Eosinophils Percent Auto 1.3 % (0.0-7.0); Hematocrit 30.7 % (33.0-51.0); Hemoglobin* 10.6 gm/dL (12.0-16.0); Immature Granulocytes Pct Auto 0.6 %; Lymphocytes Percent Auto 28.2 % (20-44); Mean Corpuscular HGB Conc 35 gm/dL (32-36); Mean Corpuscular Hemoglobin 38 pg (26-34); Mean Corpuscular Volume 111 fL (80-100); Monocytes Percent Auto 12.8 % (0.0-11.0); Neutrophils Percent Auto 55.8 % (42.0-72.0); Platelet Count* 149 K/uL (140-440); Red Blood Count 2.77 m/uL (4.00-5.20)
[2024-06-14 14:45] LABS: Slide Review Reflex Yes; White Blood Count* 1.56 K/uL (4.50-11.00)
[2024-06-14 14:51] VITALS: BP 113/75; PULSE 69; RESP 16; TEMP 36.8; O2SAT 95
[2024-06-14 14:51] LABS: Albumin* 4.7 g/dL (3.3-5.0); Chloride* 94 mmol/L (96-114); Sodium* 132 mmol/L (135-149)
[2024-06-14 14:54] LABS: Alanine Aminotransferase* 17 U/L (4-35); Alkaline Phosphatase* 63 U/L (40-150); Anion Gap 9 mEq/L (7-15); Aspartate Amino Transferase* 33 U/L (12-35); Bilirubin Total* 0.7 mg/dL (0.1-1.5); Blood Urea Nitrogen* 22 mg/dL (7-30); Carbon Dioxide* 29 mmol/L (20-32); Creatinine* 1.2 mg/dL (0.5-1.5); Est. Creatinine Clearance* 48.42; Estimated Glomerular Filt Rate 53 ml/min; Total Protein* 7.5 g/dL (6.0-8.3)
[2024-06-14 14:55] LABS: Calcium* 9.1 mg/dL (8.4-10.6); Glucose* 91 mg/dL (60-115); Magnesium* 1.7 mg/dL (1.5-2.6)
[2024-06-14] MEDS: FULVESTRANT 500MG KIT 500 MG IM (15:32)
--- NOTE | 2024-06-14 15:39 | ONC.NURNOTE ---
Patient here for labs, EKG and Faslodex. She is due to start her next cycle of Ribociclib 06/16. Her ANC today is 900. She just returned from a vacation in [facility]. She is afebrile but does report feeling stuffy. Patient instructed not to start her next cycle of ribociclib until her current labs and EKG are reviewed with Dr. Carlin. Patient verbalizes understanding.
[2024-06-14 17:53] LABS: Slide Review Acceptable Review (Acceptable)
--- NOTE | 2024-06-15 15:30 | ONC.NURNOTE ---
Addendum entered by Justa Hernandez RN 06/22/24 13:25: Lab recheck with WBC/ANC WNL and improved Na. Pt to restart Kisqali. Imaging completed today; f/u with Ashley Benavides 06/28. Will need more orders for Faslodex and plan for Zometa. Original Note: Reviewed labs with Dr. Carlin; low Na and WBC. Also, Pet CT denied by insurance. See below for plan discussed with and bone scan info sent via email. Pt extremely frustrated that insurance is denying Pet CT. Hold Kisqali for 1 week Redraw labs 06/22 7:45 am [facility]; Kylah/Iveth will review with Dr. Carlin and call you with the plan. 06/22 8am : CT scan of chest, abdomen and pelvis, and Bone Scan of Whole Body; see attached handout for prep and what to expect.? Follow up with Ashley Benavides PA-C 06/28 2:35pm check-in to review scan results
[2024-06-22 07:56] LABS: Basophils Absolute Auto 0.08 K/uL (0.00-0.30); Basophils Percent Auto 1.7 % (0.0-3.0); Eosinophils Absolute Auto 0.03 K/uL (0.00-0.50); Eosinophils Percent Auto 0.6 % (0.0-7.0); Hematocrit 32.9 % (33.0-51.0); Hemoglobin* 11.4 gm/dL (12.0-16.0); Immature Granulocytes Abs Auto 0.06 K/uL (0.00-0.30); Immature Granulocytes Pct Auto 1.2 %; Lymphocytes Absolute Auto 0.97 K/uL (0.90-2.90); Mean Corpuscular HGB Conc 35 gm/dL (32-36); Mean Corpuscular Hemoglobin 38 pg (26-34); Mean Corpuscular Volume 110 fL (80-100); Monocytes Percent Auto 14.5 % (0.0-11.0); Platelet Count* 458 K/uL (140-440); RDW Coefficient of Variation % 12.6 % (11.5-15.5); White Blood Count* 4.84 K/uL (4.50-11.00)
[2024-06-22 07:58] LABS: Slide Review Reflex No
[2024-06-22 08:15] LABS: Albumin* 4.7 g/dL (3.3-5.0); Chloride* 96 mmol/L (96-114); Potassium* 4.5 mmol/L (3.6-5.1); Sodium* 134 mmol/L (135-149)
[2024-06-22 08:18] LABS: Alanine Aminotransferase* 18 U/L (4-35); Alkaline Phosphatase* 75 U/L (40-150); Anion Gap 9 mEq/L (7-15); Aspartate Amino Transferase* 36 U/L (12-35); Bilirubin Total* 0.8 mg/dL (0.1-1.5); Blood Urea Nitrogen* 15 mg/dL (7-30); Carbon Dioxide* 29 mmol/L (20-32); Creatinine* 1.1 mg/dL (0.5-1.5); Est. Creatinine Clearance* 52.82; Estimated Glomerular Filt Rate 59 ml/min; Total Protein* 7.7 g/dL (6.0-8.3)
[2024-06-22 08:19] LABS: Calcium* 9.9 mg/dL (8.4-10.6); Glucose* 109 mg/dL (60-115)
== END 2024-06-22 23:59 | disposition home or self-care (01) ==
LOC: CCIC 07:45
PROVIDERS: Internal Medicine Hematology & Oncology; PCP Family Medicine; Referring Provider Family Medicine; Visit Provider Physician Assistant
DX: C50.911 Malignant neoplasm of unspecified site of right female breast (principal); Z17.0 Estrogen receptor positive status [ER+]; C79.51 Secondary malignant neoplasm of bone; C77.3 Secondary and unspecified malignant neoplasm of axilla and upper limb lymph nodes
CPT/HCPCS: 36415; 80048; 80053; 83735; 85025; 93005; 93010; 96360; 96361; 96365; 96366; 96401; 96402; 99215; G0463; A9270; J3475; J9395

== ENCOUNTER 2024-09-09 14:40 | Outpatient (CLI) | payer OTHER, SELFPAY ==
--- NOTE | 2024-09-09 15:00 | CRLHL7_ITS ---
For Patients: As a result of the 21st Century Cures Act, medical imaging exams and procedure reports are released immediately into your electronic medical record. You may view this report before your referring provider. If you have questions, please contact your health care provider. EXAM: FDG PET-CT Skull Base to Thighs CLINICAL INFORMATION: 59-year-old woman with history of breast cancer. Restaging TECHNIQUE: Radiopharmaceutical: 18F-fluorodeoxyglucose (18F-FDG) Dose: 12.4 milliCurie. Blood glucose: 102 mg/dL. Image acquisition: At approximately 60 minutes following IV tracer administration via a left antecubital vein, positron emission tomography was performed from the skull base through the mid thigh. Non-contrast low-dose helical CT imaging was performed over the same range without breath-hold for attenuation correction of PET images and anatomic correlation; it is neither sufficient, nor should it be substituted for diagnostic purposes. COMPARISON: FDG PET-CT 10/23/2023 FINDINGS: Mediastinal blood pool FDG uptake: SUVMax 3.0 (image 75) Liver background parenchymal FDG uptake: SUVMax 3.5 (image 125) PET Findings: Bilateral mastectomies. Faintly FDG avid cutaneous thickening and subcutaneous stranding in the right chest wall, and faintly FDG avid right chest wall skeletal muscle uptake is favored to represent post radiation treatment change. No abnormal focal increased FDG uptake in the chest wall. No abnormal FDG avid lymphadenopathy. Overall similar multifocal FDG avid osseous metastases in the axial and appendicular skeleton. For example: *Right proximal femoral diaphyseal lesion SUVMax 4.0 (image 2.8) previously SUVMax 5.7 (image 279, remeasured in the same plane). *Left iliac wing lesion SUVMax 4.0 (image 216) previously SUVMax 4.9 (image 241, remeasured in the same plane). *Left humeral head lesion SUVMax 4.6 (image 38) previously SUVMax 4.6 (image 63, remeasured in the same plane). Scattered faintly FDG avid are non FDG avid sclerotic lesions, representing sites of quiescent or treated metastatic disease, for example in the L1 vertebral body. Tracer uptake elsewhere is physiologic. Non-PET findings: Post radiation changes in the anterior right upper and middle lobes of the lungs. Right axillary divya dissection clips. Coronary artery calcifications. Atherosclerotic calcifications of the thoracic and abdominal aorta. Intrauterine device. Multilevel degenerative changes in the spine. IMPRESSION: 1. Bilateral mastectomies. No definite evidence of FDG avid locally recurrent neoplasm in the chest wall. 2. No substantial change of multifocal FDG avid osseous metastases in the axial and appendicular skeleton. 3. No evidence of FDG avid divya metastases. Dictated by Kane Lane MD @ 09/11/2024 12:43:05 PM (Electronically Signed)
== END 2024-09-09 14:41 | disposition home or self-care (01) ==
LOC: RAD 14:40
PROVIDERS: PCP Family Medicine; Visit Provider Physician Assistant
DX: C50.311 Malignant neoplasm of lower-inner quadrant of right female breast (principal); C79.51 Secondary malignant neoplasm of bone; C78.00 Secondary malignant neoplasm of unspecified lung; C77.0 Secondary and unspecified malignant neoplasm of lymph nodes of head, face and neck
CPT/HCPCS: 78815; A9552

== ENCOUNTER 2024-12-15 13:45 | Outpatient (RCR) | payer OTHER, SELFPAY ==
--- NOTE | 2024-07-01 15:00 | ONC.NURNOTE ---
Confirmed with Violet Benavides PA-C that EKG monitoring can be changed to every other month moving forward.
[2024-07-15 07:52] VITALS: BP 131/83; PULSE 69; RESP 16; TEMP 35.4; O2SAT 99
[2024-07-15] MEDS: FULVESTRANT 500MG KIT 500 MG IM (08:12)
[2024-07-21 14:39] LABS: Hematocrit* 29.8 % (33.0-51.0); Hemoglobin* 10.2 gm/dL (12.0-16.0); Immature Granulocytes Pct Auto 0.3 %; Mean Corpuscular HGB Conc 34 gm/dL (32-36); Mean Corpuscular Hemoglobin 39 pg (26-34); Mean Corpuscular Volume 113 fL (80-100); RDW Coefficient of Variation % 13.5 % (11.5-15.5); Red Blood Count* 2.65 m/uL (4.00-5.20); White Blood Count* 3.15 K/uL (4.50-11.00)
[2024-07-21 14:45] LABS: Immature Granulocytes Abs Auto 0.00 K/uL (0.00-0.30); Lymphocytes Absolute Auto 1.00 K/uL (0.90-2.90); Slide Review Reflex Yes
[2024-07-21 14:56] LABS: Albumin* 4.8 g/dL (3.3-5.0); Chloride* 102 mmol/L (96-114); Sodium* 139 mmol/L (135-149)
[2024-07-21 14:57] LABS: Potassium* 4.8 mmol/L (3.6-5.1)
[2024-07-21 14:59] LABS: Alanine Aminotransferase* 19 U/L (4-35); Anion Gap 8 mEq/L (7-15); Aspartate Amino Transferase* 32 U/L (12-35); Blood Urea Nitrogen* 28 mg/dL (7-30); Calcium* 10.2 mg/dL (8.4-10.6); Carbon Dioxide* 29 mmol/L (20-32); Creatinine* 1.2 mg/dL (0.5-1.5); Est. Creatinine Clearance* 50.30; Estimated Glomerular Filt Rate 53 ml/min; Glucose* 106 mg/dL (60-115); Total Protein* 7.9 g/dL (6.0-8.3)
[2024-07-21 15:00] LABS: Alkaline Phosphatase* 63 U/L (40-150); Bilirubin Total* 0.6 mg/dL (0.1-1.5)
[2024-07-21 15:11] LABS: Slide Review Acceptable Review (Acceptable)
--- NOTE | 2024-07-21 15:45 | ONC.NURNOTE ---
Patient informed that her labs are within parameters to continue her ribociclib. Patient verbalizes understanding.
--- NOTE | 2024-08-02 10:38 | ONC.NURNOTE ---
ЕКАТЕРИНА for Akin submitted through [employer]. Auth #: [id number].
[2024-08-16 14:24] LABS: Hematocrit* 30.2 % (33.0-51.0); Hemoglobin* 10.4 gm/dL (12.0-16.0); Immature Granulocytes Abs Auto 0.00 K/uL (0.00-0.30); Immature Granulocytes Pct Auto 0.0 %; Mean Corpuscular HGB Conc 34 gm/dL (32-36); Mean Corpuscular Hemoglobin 38 pg (26-34); Mean Corpuscular Volume 111 fL (80-100); RDW Coefficient of Variation % 13.5 % (11.5-15.5); Red Blood Count* 2.72 m/uL (4.00-5.20); White Blood Count* 2.68 K/uL (4.50-11.00)
[2024-08-16 14:27] LABS: Albumin* 4.9 g/dL (3.3-5.0); Chloride* 99 mmol/L (96-114)
[2024-08-16 14:28] LABS: Potassium* 3.4 mmol/L (3.6-5.1); Sodium* 137 mmol/L (135-149)
[2024-08-16 14:30] LABS: Anion Gap 8 mEq/L (7-15); Blood Urea Nitrogen* 22 mg/dL (7-30); Carbon Dioxide* 30 mmol/L (20-32); Creatinine* 1.2 mg/dL (0.5-1.5); Est. Creatinine Clearance* 50.30; Estimated Glomerular Filt Rate 53 ml/min
[2024-08-16 14:31] LABS: Alanine Aminotransferase* 27 U/L (4-35); Alkaline Phosphatase* 71 U/L (40-150); Aspartate Amino Transferase* 43 U/L (12-35); Bilirubin Total* 1.0 mg/dL (0.1-1.5); Calcium* 10.1 mg/dL (8.4-10.6); Glucose* 122 mg/dL (60-115); Total Protein* 7.9 g/dL (6.0-8.3)
[2024-08-16 14:52] LABS: Lymphocytes Absolute Auto 0.90 K/uL (0.90-2.90); Slide Review Acceptable Review (Acceptable); Slide Review Reflex Yes
[2024-08-16] MEDS: FULVESTRANT 500MG KIT 500 MG IM (15:08)
[2024-09-14 14:12] LABS: Hematocrit* 30.7 % (33.0-51.0); Hemoglobin* 10.5 gm/dL (12.0-16.0); Immature Granulocytes Abs Auto 0.00 K/uL (0.00-0.30); Immature Granulocytes Pct Auto 0.0 %; Lymphocytes Absolute Auto 0.90 K/uL (0.90-2.90); Mean Corpuscular HGB Conc 34 gm/dL (32-36); Mean Corpuscular Hemoglobin 38 pg (26-34); Mean Corpuscular Volume 112 fL (80-100); RDW Coefficient of Variation % 13.0 % (11.5-15.5); Red Blood Count* 2.74 m/uL (4.00-5.20); White Blood Count* 2.54 K/uL (4.50-11.00)
[2024-09-14 14:56] LABS: Slide Review Reflex No
[2024-09-14 15:14] LABS: Albumin* 4.6 g/dL (3.3-5.0); Chloride* 102 mmol/L (96-114); Potassium* 3.8 mmol/L (3.6-5.1); Sodium* 137 mmol/L (135-149)
[2024-09-14 15:17] LABS: Alanine Aminotransferase* 18 U/L (4-35); Alkaline Phosphatase* 72 U/L (40-150); Anion Gap 5 mEq/L (7-15); Aspartate Amino Transferase* 35 U/L (12-35); Bilirubin Total* 0.4 mg/dL (0.1-1.5); Blood Urea Nitrogen* 16 mg/dL (7-30); Calcium* 9.9 mg/dL (8.4-10.6); Carbon Dioxide* 30 mmol/L (20-32); Creatinine* 1.0 mg/dL (0.5-1.5); Est. Creatinine Clearance* 59.63; Estimated Glomerular Filt Rate 65 ml/min; Glucose* 107 mg/dL (60-115); Total Protein* 7.3 g/dL (6.0-8.3)
[2024-09-14] MEDS: FULVESTRANT 500MG KIT 500 MG IM (15:25)
[2024-10-14 14:23] LABS: Hematocrit* 30.8 % (33.0-51.0); Hemoglobin* 10.5 gm/dL (12.0-16.0); Immature Granulocytes Abs Auto 0.00 K/uL (0.00-0.30); Immature Granulocytes Pct Auto 0.0 %; Lymphocytes Absolute Auto 0.80 K/uL (0.90-2.90); Mean Corpuscular HGB Conc 34 gm/dL (32-36); Mean Corpuscular Hemoglobin 38 pg (26-34); Mean Corpuscular Volume 110 fL (80-100); RDW Coefficient of Variation % 12.7 % (11.5-15.5); Red Blood Count* 2.80 m/uL (4.00-5.20); White Blood Count* 2.93 K/uL (4.50-11.00)
[2024-10-14 14:26] LABS: Slide Review Reflex No
[2024-10-14 14:35] LABS: Albumin* 4.7 g/dL (3.3-5.0); Chloride* 101 mmol/L (96-114); Potassium* 4.3 mmol/L (3.6-5.1); Sodium* 136 mmol/L (135-149)
[2024-10-14 14:38] LABS: Alanine Aminotransferase* 14 U/L (4-35); Alkaline Phosphatase* 66 U/L (40-150); Anion Gap 7 mEq/L (7-15); Aspartate Amino Transferase* 25 U/L (12-35); Bilirubin Total* 0.9 mg/dL (0.1-1.5); Blood Urea Nitrogen* 31 mg/dL (7-30); Calcium* 10.4 mg/dL (8.4-10.6); Carbon Dioxide* 28 mmol/L (20-32); Creatinine* 1.1 mg/dL (0.5-1.5); Est. Creatinine Clearance* 54.21; Estimated Glomerular Filt Rate 58 ml/min; Glucose* 102 mg/dL (60-115); Total Protein* 7.8 g/dL (6.0-8.3)
[2024-10-14] MEDS: ZOLEDRONIC ACID 4 MG in 0.9 % SODIUM CHLORIDE 100 ml 100 ML 420 MG IVPB (15:37)
[2024-10-14] MEDS: FULVESTRANT 500MG KIT 500 MG IM (15:38)
[2024-11-15 14:44] LABS: Hematocrit* 30.2 % (33.0-51.0); Hemoglobin* 10.3 gm/dL (12.0-16.0); Immature Granulocytes Abs Auto 0.00 K/uL (0.00-0.30); Immature Granulocytes Pct Auto 0.0 %; Mean Corpuscular HGB Conc 34 gm/dL (32-36); Mean Corpuscular Hemoglobin 38 pg (26-34); Mean Corpuscular Volume 111 fL (80-100); RDW Coefficient of Variation % 13.4 % (11.5-15.5); Red Blood Count* 2.73 m/uL (4.00-5.20); White Blood Count* 2.93 K/uL (4.50-11.00)
[2024-11-15 14:48] VITALS: BP 131/80; PULSE 69; RESP 15; TEMP 36.7; O2SAT 99
[2024-11-15 14:51] LABS: Lymphocytes Absolute Auto 0.90 K/uL (0.90-2.90)
[2024-11-15 14:52] LABS: Slide Review Reflex No
[2024-11-15] MEDS: FULVESTRANT 500MG KIT 500 MG IM (14:56)
--- NOTE | 2024-11-15 15:00 | ONC.NURNOTE ---
Patient informed that her CBC is within parameters to continue ribociclib. Patient denies any questions or concerns.
[2024-11-15 15:02] LABS: Chloride* 102 mmol/L (96-114); Potassium* 3.7 mmol/L (3.6-5.1); Sodium* 137 mmol/L (135-149)
[2024-11-15 15:05] LABS: Alanine Aminotransferase* 13 U/L (4-35); Alkaline Phosphatase* 70 U/L (40-150); Anion Gap 8 mEq/L (7-15); Aspartate Amino Transferase* 29 U/L (12-35); Bilirubin Total* 0.6 mg/dL (0.1-1.5); Calcium* 9.5 mg/dL (8.4-10.6); Carbon Dioxide* 27 mmol/L (20-32); Glucose* 99 mg/dL (60-115)
[2024-11-15 15:24] LABS: Total Protein* 7.7 g/dL (6.0-8.3)
[2024-11-15 16:38] LABS: Albumin* 4.7 g/dL (3.3-5.0)
[2024-11-15 16:41] LABS: Blood Urea Nitrogen* 21 mg/dL (7-30); Creatinine* 1.1 mg/dL (0.5-1.5); Est. Creatinine Clearance* 54.21; Estimated Glomerular Filt Rate 58 ml/min
[2024-12-15 13:50] LABS: Hematocrit* 30.7 % (33.0-51.0); Hemoglobin* 10.5 gm/dL (12.0-16.0); Immature Granulocytes Abs Auto 0.00 K/uL (0.00-0.30); Immature Granulocytes Pct Auto 0.0 %; Mean Corpuscular HGB Conc 34 gm/dL (32-36); Mean Corpuscular Hemoglobin 38 pg (26-34); Mean Corpuscular Volume 111 fL (80-100); RDW Coefficient of Variation % 14.2 % (11.5-15.5); Red Blood Count* 2.76 m/uL (4.00-5.20); White Blood Count* 3.50 K/uL (4.50-11.00)
[2024-12-15 14:04] LABS: Albumin* 4.7 g/dL (3.3-5.0); Chloride* 101 mmol/L (96-114); Potassium* 4.0 mmol/L (3.6-5.1); Sodium* 139 mmol/L (135-149)
[2024-12-15 14:07] LABS: Alanine Aminotransferase* 12 U/L (4-35); Alkaline Phosphatase* 69 U/L (40-150); Anion Gap 11 mEq/L (7-15); Aspartate Amino Transferase* 26 U/L (12-35); Bilirubin Total* 0.5 mg/dL (0.1-1.5); Blood Urea Nitrogen* 22 mg/dL (7-30); Calcium* 9.7 mg/dL (8.4-10.6); Carbon Dioxide* 27 mmol/L (20-32); Creatinine* 1.0 mg/dL (0.5-1.5); Est. Creatinine Clearance* 59.63; Estimated Glomerular Filt Rate 65 ml/min; Glucose* 101 mg/dL (60-115); Total Protein* 7.7 g/dL (6.0-8.3)
[2024-12-15 14:17] LABS: Lymphocytes Absolute Auto 1.10 K/uL (0.90-2.90); Slide Review Reflex Yes
[2024-12-15] MEDS: FULVESTRANT 500MG KIT 500 MG IM (14:54)
[2024-12-15 14:56] LABS: Slide Review Acceptable Review (Acceptable)
== END 2024-12-25 23:59 | disposition home or self-care (01) ==
LOC: CCIC 13:45
PROVIDERS: Physician Assistant; PCP Family Medicine; Referring Provider Family Medicine; Visit Provider Internal Medicine Hematology & Oncology
DX: C50.911 Malignant neoplasm of unspecified site of right female breast (principal); Z17.0 Estrogen receptor positive status [ER+]; C77.3 Secondary and unspecified malignant neoplasm of axilla and upper limb lymph nodes; C79.51 Secondary malignant neoplasm of bone; Z79.83 Long term (current) use of bisphosphonates; E87.6 Hypokalemia; Z72.0 Tobacco use
CPT/HCPCS: 36415; 80053; 83735; 85025; 93005; 96374; 96402; 99215; G0463; J3489; J9395